=== PATIENT | female | born 1960 | race Caucasian/White ===

== ENCOUNTER 2025-04-24 16:12 | Inpatient (IN) ==
[2025-04-24 16:49] LABS: Base Excess VBG 14.4 mEq/L; HCO3 VBG 39 mmol/L; Oxygen Saturation VBG < 60.0 %; PCO2 VBG 44 mmHg (38-50); PO2 VBG 33 mmHg; pH VBG 7.55 (7.36-7.41)
--- NOTE | 2025-04-24 17:03 | Emergency Department Note ---
Impression & Plan Altered mental status, CKD (chronic kidney disease) ED Provider Note ED Provider Note NAME: RICCI ESCOBAR AGE:65 SEX: Female : 1960 ARRIVES VIA: EMS INFORMANT: EMS ED PROVIDER(s): Liset Marcos DO CHIEF COMPLAINT: Altered mental status HPI: This is a-year-old female who presents to the emergency with EMS after being found to be more confused following her dialysis treatment today. Patient is somnolent but arousable and denies any pain and cannot recall how long she is on dialysis but states she does still make urine. She denies any change in medication. EMS provider states that staff told them that she had an extra hour of dialysis today because she had missed a prior dialysis treatment. Staff reported that she seemed in her usual mental state when she arrived and they did not notice anything out of the ordinary. PAST MEDICAL HISTORY:See Below PAST SURGICAL HISTORY:See Below FAMILY HISTORY:See Below SOCIAL HISTORY:See Below HOME MEDICATIONS:See Below ALLERGIES:See Below VITALS:See Below PHYSICAL EXAMINATION: GENERAL: alert, well appearing, well nourished, no distress, non-toxic EYE EXAM: normal conjunctiva, PERRL and EOM's grossly intact OROPHARYNX: no exudate, no erythema, lips, buccal mucosa, and tongue normal and mucous membranes are moist NECK: supple, no nuchal rigidity, no adenopathy, non-tender LUNGS: Clear to auscultation. Normal chest wall mechanics, no w/r/r HEART: no murmurs, S1 normal and S2 normal ABDOMEN: abdomen soft, non-tender, normo-active bowel sounds, no masses, no rebound or guarding. BACK: Back is symmetrical on inspection and there is no deformity, no midline tenderness, no CVA tenderness. SKIN: no rashes, petechiae, orbruising UPPER EXTREMITIES: upper extremities are grossly normal. FROM, nml pulses b/l. LOWER EXTREMITIES: No pitting edema. FROM, nml pulses b/l. Chronic appearing erythema noted to bilateral lower extremities with more acute appearing areas intermittently of avulsed skin and increased surrounding erythema, no discharge or drainage, dressings were placed over bilateral anterior tib-fib regions NEURO EXAM: Normal sensorium, cranial nerves II-XII grossly intact, normal speech, no facial droop,nogross weakness of arms, no gross weakness of legs. Gross sensation intact. No ataxia. Vital Signs: reviewed and remarkable Differential Diagnosis: CVA/TIA, ICH, JARRETT, PNA, UTI, medication ADR, bacteremia/sepsis, occult trauma, hypoxia, hypercapnia, electrolyte abnormality, as well as others were considered MEDICAL DECISION MAKING: This is a 65-year-old female who presents via EMS for she was noted to be somnolent and slightly confused following her dialysis treatment.. She does arouse to voice and follow commands and answer simple questions however very quickly goes back to sleep. Labs drawn and sent, IV established, EKG and CXR performed and interpreted at bedside, and patient placed on telemetry. She was sent for CT head additionally. Labs appear stable in light of patient's past medical history. VBG reassuring, ammonia negative. CT head without any acute findings. Patient continued to be somnolent however hemodynamically stable throughout. She was still arouse to voice. Patient could not recall her 's phone number. There is no additional information in our system to find a next of kin or family members to discuss the patient's past medical history and presentation here. Given concern for presenting symptoms and no safe discharge plan otherwise, case discussed with the hospitalist team for additional evaluation and management. Consultation(s): 1924: Discussed with Dr. Connolly, [facility] hospitalist team, for additional evaluation and mgmt. ER Treatment Provided: See below Diagnostics Interpreted By Me: -ECG: Normal sinus at 65, first-degree AV block, leftward axis QRS 134, QTc 538, nonspecific ST/T wave changes -Cardiac Monitoring: An order was placed for continuous cardiac monitoring. The monitor shows a rate of 67 with normal sinus rhythm. -Laboratory studies: As stated above and show below. -Imaging studies: ct head: no ich X-ray Chest: A single view study of the chest was reviewed and was negative for focal infiltrate, effusion, or wide mediastinum. Cm and mild pulm edema noted. Triage Nursing Note Reviewed Prior/Outside Records Reviewed Past Med/Surg History Problem List (Updated 04/24/25 @ 19:07 by Liset Marcos DO) CKD (chronic kidney disease) (Acute) Altered mental status (Acute) Social History Smoking Status: Unknown if ever smoked Preferred Language: Pakistani Feels Safe at Home: Yes Allergies Allergies Allergy/AdvReac Type Severity Reaction Status Date / Time atorvastatin [From Lipitor] Allergy Unknown Verified 04/24/25 19:33 cephalexin [From Keflex] Allergy itchy/vomit Verified 04/24/25 19:33 ing Sulfa (Sulfonamide Allergy Unknown Verified 04/24/25 19:33 Antibiotics) Home Meds Home Medications Medication Instructions Recorded Confirmed aspirin 81 mg tablet,delayed 81 mg PO QAM 04/24/25 04/24/25 release cholecalciferol (vitamin D3) 25 25 mcg PO DAILY 04/24/25 04/24/25 mcg (1,000 unit) tablet (Vitamin D3) ferric citrate 210 mg iron tablet 1 tab PO TIDM 04/24/25 04/24/25 (Auryxia) gabapentin 300 mg capsule 300 mg PO QPM 04/24/25 04/24/25 insulin glargine 100 unit/mL (3 10 unit subcut HS 04/24/25 04/24/25 mL) subcutaneous pen (Lantus Solostar U-100 Insulin) lorazepam 0.5 mg tablet 0.25 mg PO BID PRN Anxiety 04/24/25 04/24/25 mesalamine 800 mg tablet,delayed 800 mg PO TID 04/24/25 04/24/25 release midodrine 10 mg tablet 20 mg PO UD 04/24/25 04/24/25 nitrofurantoin 100 mg PO BID 04/24/25 04/24/25 monohydrate/macrocrystals 100 mg capsule omeprazole 20 mg capsule,delayed 20 mg PO QAM 04/24/25 04/24/25 release ranolazine 500 mg tablet,extended 500 mg PO BID 04/24/25 04/24/25 release,12 hr rifaximin 550 mg tablet (Xifaxan) 550 mg PO BID 04/24/25 04/24/25 ropinirole 3 mg tablet 3 mg PO BID 04/24/25 04/24/25 sacubitril 24 mg-valsartan 26 mg 1 tab PO AMHS 04/24/25 04/24/25 tablet (Entresto) sertraline 100 mg tablet 100 mg PO HS 04/24/25 04/24/25 simvastatin 20 mg tablet 20 mg PO HS 04/24/25 04/24/25 vitamin B complex-vitamin C-folic 1 tab PO DAILY 04/24/25 04/24/25 acid 0.8 mg tablet Results & Data (ED) Vital Signs Vital Signs - 24 hr 04/24/25 16:30 04/24/25 16:30 04/24/25 16:30 Temperature 36.9 C 36.9 C Temperature Source Oral Oral Pulse Rate 63 63 Pulse Rate [Apical] 63 Pulse Rate from SpO2 Sensor Respiratory Rate 22 22 22 Blood Pressure 144/59 H Blood Pressure [Right Arm] 144/59 H Blood Pressure Mean 87 Blood Pressure Mean [Right Arm] 87 Blood Pressure Position Semi-fowlers Blood Pressure Position [Right Arm] Semi-fowlers Pulse Oximetry 97 97 97 Oxygen Delivery Method Room Air Room Air Room Air Oxygen Flow Rate Sepsis Recent Fever Within 48 Hours No Sepsis New/Unexplained Change in Mental Status Yes Sepsis Action Taken by Nursing Physician Notified 04/24/25 16:30 04/24/25 16:45 04/24/25 16:50 Temperature Temperature Source Pulse Rate 63 Pulse Rate [Apical] Pulse Rate from SpO2 Sensor Respiratory Rate Blood Pressure 144/59 H Blood Pressure [Right Arm] Blood Pressure Mean 77 Blood Pressure Mean [Right Arm] Blood Pressure Position Blood Pressure Position [Right Arm] Pulse Oximetry 97 Oxygen Delivery Method Room Air Oxygen Flow Rate 0 Sepsis Recent Fever Within 48 Hours Sepsis New/Unexplained Change in Mental Status Sepsis Action Taken by Nursing 04/24/25 17:12 04/24/25 17:30 04/24/25 17:30 Temperature Temperature Source Pulse Rate 69 65 Pulse Rate [Apical] Pulse Rate from SpO2 Sensor Respiratory Rate 22 17 Blood Pressure 148/67 H Blood Pressure [Right Arm] Blood Pressure Mean 106 Blood Pressure Mean [Right Arm] Blood Pressure Position Blood Pressure Position [Right Arm] Pulse Oximetry Oxygen Delivery Method Oxygen Flow Rate Sepsis Recent Fever Within 48 Hours Sepsis New/Unexplained Change in Mental Status Sepsis Action Taken by Nursing 04/24/25 17:45 04/24/25 17:51 04/24/25 18:00 Temperature Temperature Source Pulse Rate 66 Pulse Rate [Apical] 67 67 Pulse Rate from SpO2 Sensor Respiratory Rate 18 16 16 Blood Pressure Blood Pressure [Right Arm] 153/69 H 153/69 H Blood Pressure Mean Blood Pressure Mean [Right Arm] 97 97 Blood Pressure Position Blood Pressure Position [Right Arm] Semi-fowlers Semi-fowlers Pulse Oximetry 95 95 Oxygen Delivery Method Room Air Room Air Oxygen Flow Rate Sepsis Recent Fever Within 48 Hours Sepsis New/Unexplained Change in Mental Status Sepsis Action Taken by Nursing 04/24/25 18:00 04/24/25 18:00 04/24/25 18:03 Temperature Temperature Source Pulse Rate 67 Pulse Rate [Apical] Pulse Rate from SpO2 Sensor 67 Respiratory Rate 18 Blood Pressure 153/69 H 153/69 H Blood Pressure [Right Arm] Blood Pressure Mean 103 103 Blood Pressure Mean [Right Arm] Blood Pressure Position Blood Pressure Position [Right Arm] Pulse Oximetry 99 Oxygen Delivery Method Oxygen Flow Rate Sepsis Recent Fever Within 48 Hours Sepsis New/Unexplained Change in Mental Status Sepsis Action Taken by Nursing 04/24/25 18:06 04/24/25 18:15 04/24/25 18:16 Temperature Temperature Source Pulse Rate 66 Pulse Rate [Apical] 69 Pulse Rate from SpO2 Sensor 67 Respiratory Rate 15 16 Blood Pressure 162/72 H Blood Pressure [Right Arm] 162/72 H Blood Pressure Mean 108 Blood Pressure Mean [Right Arm] 102 Blood Pressure Position Blood Pressure Position [Right Arm] Semi-fowlers Pulse Oximetry 100 95 Oxygen Delivery Method Room Air Oxygen Flow Rate Sepsis Recent Fever Within 48 Hours Sepsis New/Unexplained Change in Mental Status Sepsis Action Taken by Nursing 04/24/25 18:18 04/24/25 18:45 04/24/25 18:46 Temperature Temperature Source Pulse Rate 69 Pulse Rate [Apical] 64 Pulse Rate from SpO2 Sensor Respiratory Rate 15 20 Blood Pressure 169/68 H Blood Pressure [Right Arm] 185/80 H Blood Pressure Mean 81 Blood Pressure Mean [Right Arm] 115 Blood Pressure Position Blood Pressure Position [Right Arm] Semi-fowlers Pulse Oximetry 95 Oxygen Delivery Method Room Air Oxygen Flow Rate Sepsis Recent Fever Within 48 Hours Sepsis New/Unexplained Change in Mental Status Sepsis Action Taken by Nursing 04/24/25 18:50 04/24/25 19:06 04/24/25 19:09 Temperature Temperature Source Pulse Rate 64 63 Pulse Rate [Apical] Pulse Rate from SpO2 Sensor Respiratory Rate 18 14 Blood Pressure 185/80 H Blood Pressure [Right Arm] Blood Pressure Mean 93 Blood Pressure Mean [Right Arm] Blood Pressure Position Blood Pressure Position [Right Arm] Pulse Oximetry Oxygen Delivery Method Oxygen Flow Rate Sepsis Recent Fever Within 48 Hours Sepsis New/Unexplained Change in Mental Status Sepsis Action Taken by Nursing 04/24/25 19:15 04/24/25 19:21 04/24/25 19:30 Temperature Temperature Source Pulse Rate 65 Pulse Rate [Apical] Pulse Rate from SpO2 Sensor Respiratory Rate 16 Blood Pressure 154/67 H 139/65 Blood Pressure [Right Arm] Blood Pressure Mean 101 123 Blood Pressure Mean [Right Arm] Blood Pressure Position Blood Pressure Position [Right Arm] Pulse Oximetry Oxygen Delivery Method Oxygen Flow Rate Sepsis Recent Fever Within 48 Hours Sepsis New/Unexplained Change in Mental Status Sepsis Action Taken by Nursing 04/24/25 19:30 04/24/25 19:30 04/24/25 19:30 Temperature Temperature Source Pulse Rate 67 Pulse Rate [Apical] Pulse Rate from SpO2 Sensor Respiratory Rate 17 Blood Pressure 139/65 139/65 Blood Pressure [Right Arm] Blood Pressure Mean 123 123 Blood Pressure Mean [Right Arm] Blood Pressure Position Blood Pressure Position [Right Arm] Pulse Oximetry Oxygen Delivery Method Oxygen Flow Rate Sepsis Recent Fever Within 48 Hours Sepsis New/Unexplained Change in Mental Status Sepsis Action Taken by Nursing 04/24/25 19:33 04/24/25 19:45 04/24/25 19:45 Temperature Temperature Source Pulse Rate 67 Pulse Rate [Apical] Pulse Rate from SpO2 Sensor Respiratory Rate 22 Blood Pressure 144/69 H 144/69 H Blood Pressure [Right Arm] Blood Pressure Mean 104 104 Blood Pressure Mean [Right Arm] Blood Pressure Position Blood Pressure Position [Right Arm] Pulse Oximetry Oxygen Delivery Method Oxygen Flow Rate Sepsis Recent Fever Within 48 Hours Sepsis New/Unexplained Change in Mental Status Sepsis Action Taken by Nursing 04/24/25 19:45 04/24/25 19:48 04/24/25 19:48 Temperature Temperature Source Pulse Rate 66 Pulse Rate [Apical] 66 Pulse Rate from SpO2 Sensor Respiratory Rate 16 Blood Pressure 144/69 H Blood Pressure [Right Arm] 144/69 H Blood Pressure Mean 104 Blood Pressure Mean [Right Arm] 94 Blood Pressure Position Blood Pressure Position [Right Arm] Pulse Oximetry Oxygen Delivery Method Oxygen Flow Rate Sepsis Recent Fever Within 48 Hours Sepsis New/Unexplained Change in Mental Status Sepsis Action Taken by Nursing 04/24/25 20:00 04/24/25 20:06 04/24/25 20:15 Temperature Temperature Source Pulse Rate 66 63 Pulse Rate [Apical] Pulse Rate from SpO2 Sensor Respiratory Rate 16 14 Blood Pressure 150/68 H Blood Pressure [Right Arm] Blood Pressure Mean 119 Blood Pressure Mean [Right Arm] Blood Pressure Position Blood Pressure Position [Right Arm] Pulse Oximetry Oxygen Delivery Method Oxygen Flow Rate Sepsis Recent Fever Within 48 Hours Sepsis New/Unexplained Change in Mental Status Sepsis Action Taken by Nursing 04/24/25 20:15 04/24/25 20:15 Temperature Temperature Source Pulse Rate Pulse Rate [Apical] Pulse Rate from SpO2 Sensor Respiratory Rate Blood Pressure 131/60 131/60 Blood Pressure [Right Arm] Blood Pressure Mean 97 97 Blood Pressure Mean [Right Arm] Blood Pressure Position Blood Pressure Position [Right Arm] Pulse Oximetry Oxygen Delivery Method Oxygen Flow Rate Sepsis Recent Fever Within 48 Hours Sepsis New/Unexplained Change in Mental Status Sepsis Action Taken by Nursing Laboratory Data 04/24/25 16:30 04/24/25 16:30 Lab Results 04/24/25 04/24/25 04/24/25 Range/Units 16:30 16:40 18:17 WBC 3.10 L (4.8-10.8) K/ul RBC 3.92 L (4.20-5.40) M/uL Hgb 12.1 (12.0-16.0) g/dl POC Hgb 13.3 (12.0-16.0) g/dl Hct 38.0 (37.0-47.0) % POC Hct 39 (37-47) % MCV 96.9 (80.0-100.0) fL MCH 30.9 (25.0-34.0) pg MCHC 31.8 L (32.0-36.0) g/dL RDW Std Deviation 55.3 H (36.4-46.3) fL RDW Coeff of Danette 15.5 H (11.5-14.5) % Plt Count 89 L (130-400) K/uL MPV 10.9 (9.4-12.4) fL Immature Gran % (Auto) 0.6 % Neut % (Auto) 60.3 % Lymph % (Auto) 24.5 % [place] % (Auto) 12.3 % Eos % (Auto) 1.3 % Baso % (Auto) 1.0 % Neut # (Auto) 1.87 (1.40-6.50) K/uL Lymph # (Auto) 0.76 L (1.20-3.40) K/uL [place] # (Auto) 0.38 (0.11-0.59) K/uL Eos # (Auto) 0.04 (0.00-0.50) K/uL Baso # (Auto) 0.03 (0.00-0.20) K/uL Immature Gran # (Auto) 0.02 (0.01-0.20) K/uL Platelet Estimate Decreased L (Normal) PT 11.4 (9.0-12.0) Seconds INR 1.1 (0.9-1.1) VBG pH 7.55 H (7.36-7.41) VBG pCO2 44 (38-50) mmHg VBG pO2 33 mmHg VBG HCO3 39 mmol/L VBG O2 Saturation < 60.0 % VBG Base Excess 14.4 mEq/L POC Sodium 139 (135-144) mmol/L Sodium 138 (136-145) mmol/L POC Potassium 3.7 (3.3-5.0) mmol/L Potassium 3.7 (3.5-5.1) mmol/L POC Chloride 96 L (101-112) mmol/L Chloride 96 L (98-107) mmol/L Carbon Dioxide 35 H (21-32) mmol/L POC Total CO2 32 H (24-31) mmol/L Anion Gap 7 (3-11) POC Anion Gap 15.0 L (16-25) mmol/L POC BUN 15 (7-18) mg/dl BUN 16 (6-23) mg/dl Creatinine 2.47 H (0.6-1.2) mg/dl POC Creatinine 2.7 H (0.6-1.3) mg/dl Est Cr Clr Drug Dosing Not Reportable eGFR 21.12 BUN/Creatinine Ratio 6.5 L (10-20) Glucose 130 H (70-99(Fasting)) mg/dl POC Glucose (70-99) mg/dl POC Glucose (other) 131 H (70-99) mg/dl Lactate 2.1 H* (0.4-2.0) mmol/L Calcium 8.7 (8.6-10.3) mg/dl POC Ioniz Calcium Norberto 0.97 L (1.12-1.32) mmol/l Magnesium 1.9 (1.7-2.4) mg/dl Total Bilirubin 1.3 H (0.2-1.0) mg/dl Direct Bilirubin 0.2 (0-0.2) mg/dl AST 34 (13-39) U/L ALT 14 (7-52) U/L Alkaline Phosphatase 129 H (34-104) U/L Ammonia 59.0 (18-72) umol/L Troponin I High Sens 35.4 H (0-14) pg/ml Total Protein 7.7 (6.0-8.3) gm/dl Albumin 3.5 (3.4-5.0) gm/dl Procalcitonin 0.34 (0-0.5) ng/ml Adenovirus (PCR) Not Detected (NotDetected) B. pertussis DNA (PCR) Not Detected (NotDetected) B.parapertussis DNA PCR Not Detected (NotDetected) C. pneumoniae DNA (PCR) Not Detected (NotDetected) Coronavirus OC43 (PCR) Not Detected (NotDetected) Coronavirus HKU1 (PCR) Not Detected (NotDetected) Coronavirus 229E (PCR) Not Detected (NotDetected) SARS-CoV-2 (PCR) Not Detected (NotDetected) Coronavirus NL63 (PCR) Not Detected (NotDetected) Human Metapneumovir PCR Not Detected (NotDetected) Influenza Type A (PCR) Not Detected (NotDetected) Influenza Type B (PCR) Not Detected (NotDetected) M. pneumoniae (PCR) Not Detected (NotDetected) Parainfluenza 1 (PCR) Not Detected (NotDetected) Parainfluenza 2 (PCR) Not Detected (NotDetected) Parainfluenza 3 (PCR) Not Detected (NotDetected) Parainfluenza 4 (PCR) Not Detected (NotDetected) RSV (PCR) Not Detected (NotDetected) Entero/Rhino (PCR) Not Detected (NotDetected) 04/24/25 04/24/25 Range/Units 18:45 18:48 WBC (4.8-10.8) K/ul RBC (4.20-5.40) M/uL Hgb (12.0-16.0) g/dl POC Hgb (12.0-16.0) g/dl Hct (37.0-47.0) % POC Hct (37-47) % MCV (80.0-100.0) fL MCH (25.0-34.0) pg MCHC (32.0-36.0) g/dL RDW Std Deviation (36.4-46.3) fL RDW Coeff of Danette (11.5-14.5) % Plt Count (130-400) K/uL MPV (9.4-12.4) fL Immature Gran % (Auto) % Neut % (Auto) % Lymph % (Auto) % [place] % (Auto) % Eos % (Auto) % Baso % (Auto) % Neut # (Auto) (1.40-6.50) K/uL Lymph # (Auto) (1.20-3.40) K/uL [place] # (Auto) (0.11-0.59) K/uL Eos # (Auto) (0.00-0.50) K/uL Baso # (Auto) (0.00-0.20) K/uL Immature Gran # (Auto) (0.01-0.20) K/uL Platelet Estimate (Normal) PT (9.0-12.0) Seconds INR (0.9-1.1) VBG pH (7.36-7.41) VBG pCO2 (38-50) mmHg VBG pO2 mmHg VBG HCO3 mmol/L VBG O2 Saturation % VBG Base Excess mEq/L POC Sodium (135-144) mmol/L Sodium (136-145) mmol/L POC Potassium (3.3-5.0) mmol/L Potassium (3.5-5.1) mmol/L POC Chloride (101-112) mmol/L Chloride (98-107) mmol/L Carbon Dioxide (21-32) mmol/L POC Total CO2 (24-31) mmol/L Anion Gap (3-11) POC Anion Gap (16-25) mmol/L POC BUN (7-18) mg/dl BUN (6-23) mg/dl Creatinine (0.6-1.2) mg/dl POC Creatinine (0.6-1.3) mg/dl Est Cr Clr Drug Dosing eGFR BUN/Creatinine Ratio (10-20) Glucose (70-99(Fasting)) mg/dl POC Glucose 136 H (70-99) mg/dl POC Glucose (other) (70-99) mg/dl Lactate 1.8 (0.4-2.0) mmol/L Calcium (8.6-10.3) mg/dl POC Ioniz Calcium Norberto (1.12-1.32) mmol/l Magnesium (1.7-2.4) mg/dl Total Bilirubin (0.2-1.0) mg/dl Direct Bilirubin (0-0.2) mg/dl AST (13-39) U/L ALT (7-52) U/L Alkaline Phosphatase (34-104) U/L Ammonia (18-72) umol/L Troponin I High Sens 31.9 H (0-14) pg/ml Total Protein (6.0-8.3) gm/dl Albumin (3.4-5.0) gm/dl Procalcitonin (0-0.5) ng/ml Adenovirus (PCR) (NotDetected) B. pertussis DNA (PCR) (NotDetected) B.parapertussis DNA PCR (NotDetected) C. pneumoniae DNA (PCR) (NotDetected) Coronavirus OC43 (PCR) (NotDetected) Coronavirus HKU1 (PCR) (NotDetected) Coronavirus 229E (PCR) (NotDetected) SARS-CoV-2 (PCR) (NotDetected) Coronavirus NL63 (PCR) (NotDetected) Human Metapneumovir PCR (NotDetected) Influenza Type A (PCR) (NotDetected) Influenza Type B (PCR) (NotDetected) M. pneumoniae (PCR) (NotDetected) Parainfluenza 1 (PCR) (NotDetected) Parainfluenza 2 (PCR) (NotDetected) Parainfluenza 3 (PCR) (NotDetected) Parainfluenza 4 (PCR) (NotDetected) RSV (PCR) (NotDetected) Entero/Rhino (PCR) (NotDetected) Administered Medications Insulin Aspart (Insulin Aspart Per Unit Charge) 0 units SC ACHS SWATI Stop: 05/24/25 22:01 Last Admin: 04/24/25 22:30 Dose: Not Given Documented By: BJS Discontinued Medications Hydralazine HCl (Hydralazine Hcl 20 Mg/Ml Vial) 5 mg IV NOW ONE Stop: 04/24/25 19:32 Last Admin: 04/24/25 19:47 Dose: Not Given Documented By: Ceftriaxone Sodium (Rocephin) 2,000 mg in 50 mls @ 100 mls/hr IV NOW STA Stop: 04/24/25 19:35 Last Admin: 04/24/25 19:47 Dose: Not Given Documented By: Doxycycline Hyclate 100 mg/ (Dextrose) 100 mls @ 50 mls/hr IV NOW STA Stop: 04/24/25 21:36 Last Infusion: 04/24/25 22:01 Dose: Infused Documented By: Admin: 04/24/25 20:01 Dose: 50 mls/hr Documented By: Imaging Data Radiologist's Impression: Chest X-Ray 04/24/25 16:22 Clinical History: Sepsis Technique: A frontal view of the chest was obtained Findings: There is diffuse interstitial prominence, concerning for mild pulmonary edema. The heart is mildly enlarged. No pleural effusion or pneumothorax is seen. No fracture is noted. No foreign body is seen Impression: Cardiomegaly and pulmonary edema Electronically signed by Paul Javier 04-24-2025 7:[address] 04/24/25 17:33 CT head without contrast History: AMS Comparison: None Technique: Using multidetector thin collimation helical acquisition technique, axial, coronal and sagittal CT images from the skull base to the vertex were obtained without intravenous contrast. Dose reduction techniques were achieved by using automatic exposure control and/or adjustment of mA and/or kV according to patient size and/or use of iterative reconstruction technique. Findings: No intracranial hemorrhage, mass-effect, or midline shift. The ventricles are proportionate to the cerebral sulci. The delgado to white matter differentiation of the cerebral hemispheres is preserved. The basal cisterns are patent. There are mild microvascular ischemic changes. The visualized paranasal sinuses are clear. Mastoid air cells are clear. Impression: No acute intracranial pathology. Electronically signed by Akin Ornelas 04-24-2025 6:36 PM Discharge Plan Visit Data Chief Complaint: Altered Mental Status Stated Complaint: AMS ED Provider: Liset Marcos Discharge Problem: Altered mental status, CKD (chronic kidney disease) Patient Disposition: Being Evaluated by Hospitalist Condition: Fair
[2025-04-24 17:15] LABS: Alanine Aminotransferase 14 U/L (7-52); Albumin Level 3.5 gm/dl (3.4-5.0); Alkaline Phosphatase 129 U/L (34-104); Anion Gap 7 (3-11); Bilirubin,Total 1.3 mg/dl (0.2-1.0); Blood Urea Nitrogen 16 mg/dl (6-23); Calcium 8.7 mg/dl (8.6-10.3); Carbon Dioxide 35 mmol/L (21-32); Chloride 96 mmol/L (98-107); Glucose 130 mg/dl (70-99(Fasting)); Magnesium 1.9 mg/dl (1.7-2.4); Potassium 3.7 mmol/L (3.5-5.1); Sodium 138 mmol/L (136-145); Total Protein 7.7 gm/dl (6.0-8.3)
[2025-04-24 17:25] LABS: Hematocrit (blood only) 38.0 % (37.0-47.0); Hemoglobin 12.1 g/dl (12.0-16.0); Immature Granulocytes # (auto) 0.02 K/uL (0.01-0.20); Immature Granulocytes % (auto) 0.6 %; Mean Corpuscular Hemoglobin 30.9 pg (25.0-34.0); Mean Corpuscular Volume 96.9 fL (80.0-100.0); Platelet Count 89 K/uL (130-400); RDW Standard Deviation 55.3 fL (36.4-46.3); Red Blood Count 3.92 M/uL (4.20-5.40); White Blood Count 3.10 K/ul (4.8-10.8)
[2025-04-24 17:47] LABS: INR 1.1 (0.9-1.1); Prothrombin Time 11.4 Seconds (9.0-12.0)
--- NOTE | 2025-04-24 18:37 | CT Scan Report ---
CT head without contrast History: AMS Comparison: None Technique: Using multidetector thin collimation helical acquisition technique, axial, coronal and sagittal CT images from the skull base to the vertex were obtained without intravenous contrast. Dose reduction techniques were achieved by using automatic exposure control and/or adjustment of mA and/or kV according to patient size and/or use of iterative reconstruction technique. Findings: No intracranial hemorrhage, mass-effect, or midline shift. The ventricles are proportionate to the cerebral sulci. The delgado to white matter differentiation of the cerebral hemispheres is preserved. The basal cisterns are patent. There are mild microvascular ischemic changes. The visualized paranasal sinuses are clear. Mastoid air cells are clear. Impression: No acute intracranial pathology. Electronically signed by Akin Ornelas 04-24-2025 6:36 PM
[2025-04-24 19:34] LABS: Chlamydia pneumoniae PCR Not Detected (NotDetected); Coronavirus 229E PCR Not Detected (NotDetected); Coronavirus CoV-2 (COVID19)PCR Not Detected (NotDetected); Coronavirus HKU1 PCR Not Detected (NotDetected); Coronavirus NL63 PCR Not Detected (NotDetected); Coronavirus OC43PCR Not Detected (NotDetected); Human Metapneumovirus PCR Not Detected (NotDetected); Parainfluenza Virus 1 PCR Not Detected (NotDetected); Parainfluenza Virus 2 PCR Not Detected (NotDetected); Parainfluenza Virus 3 PCR Not Detected (NotDetected); Parainfluenza Virus 4 PCR Not Detected (NotDetected); Respiratory Syncytial VirusPCR Not Detected (NotDetected); Rhinovirus/Enterovirus PCR Not Detected (NotDetected)
[2025-04-24] MEDS: cefTRIAXone SODIUM 2,000 MG/50 ML BAG IV STA (19:47)
--- NOTE | 2025-04-24 19:48 | XRay Report ---
Clinical History: Sepsis Technique: A frontal view of the chest was obtained Findings: There is diffuse interstitial prominence, concerning for mild pulmonary edema. The heart is mildly enlarged. No pleural effusion or pneumothorax is seen. No fracture is noted. No foreign body is seen Impression: Cardiomegaly and pulmonary edema Electronically signed by Paul Javier 04-24-2025 7:48 PM
[2025-04-24] MEDS: DOXYCYCLINE HYCLATE 100 MG in DEXTROSE 5% MINI-B 100 ML IV STA (20:01)
--- NOTE | 2025-04-24 20:16 | History & Physical Report ---
Date of Service April 24, 2025 Assessment & Plan (1) Encephalopathy: Plan: Assessment and plan below following discussion of case with ED provider and reviewing patient history/pertinent normal/abnormal diagnostic test results. Encephalopathy Rule out UTI Home neuropsychotropic medications possibly contributory Bilateral LE cellulitis, underlying LE venous stasis, no sepsis for now, rule out DVT hx CHF, pulmonary congestion in the setting of ESRD on HD, patient without SOB complaints hx CAD status post stent hypertension, stable hypotension on midodrine hyperlipidemia, on statin Rx DM2 insulin requiring, well-controlled as of recent hemoglobin A1c of 6.3 last year hx NAFLD cirrhosis chronic anemia, hemoglobin at baseline chronic thrombocytopenia secondary to liver disease past tobacco use OBS Admit to med/tele Check UA Hold neuropsychotropic medications for now until patient mentation back to baseline Doxycycline for LE cellulitis LE venous Dopplers rule out DVT Nephrology consult if patient still confined after tomorrow for dialysis manag ement Review of records of recent confinement at [facility] ISS BG goal 110-140, carb count coverage PT OT eval once more awake DVT prophylaxis. SCDs Re: Thrombocytopenia Full code Patient requesting updates providers. Mr. Alan Hillman, contact #[phone]. Text document was generated using [employer] voice recognition software. It may contain grammatical or spelling errors. Kindly contact undersigned for clarification of any documentation item in question. History of Present Illness Chief Complaint: Altered mental status as per records I do not know as per patient Primary Care Provider: Sina Pena PA-C History obtained from patient, family, and records. Limited history from patient secondary to lethargy and confusion Medical history significant for CHF, CAD status post stent, hypertension, hypotension on midodrine, hyperlipidemia, ESRD on HD, DM2 insulin requiring, NAFLD cirrhosis, GERD, history of ischemic colitis as per records, chronic anemia (baseline hemoglobin of 11), chronic thrombocytopenia, mood disorder, past tobacco use. Recent confinement [facility] last week as per for liver and ammonia issues. Patient missed outpatient hemodialysis 2 days ago and was 10.9 kg overweight upon arrival [facility] dialysis center in [place] as per note. Patient noted to be confused and sleepy after 5-hour dialysis session. Patient denies headache, chest pain, SOB, abdominal pain, or dysuria symptoms. Chronic leg wounds a little worse than usual as per patient. Patient brought to ER for evaluation. Patient does not know where she is and why she is at the hospital. 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 Allergies Allergy/AdvReac Type Severity Reaction Status Date / Time atorvastatin [From Lipitor] Allergy Unknown Verified 04/24/25 19:33 cephalexin [From Keflex] Allergy itchy/vomit Verified 04/24/25 19:33 ing Sulfa (Sulfonamide Allergy Unknown Verified 04/24/25 19:33 Antibiotics) Home Medications Medication Instructions Recorded Confirmed Type aspirin 81 mg tablet,delayed 81 mg PO QAM 04/24/25 04/24/25 History release cholecalciferol (vitamin D3) 25 25 mcg PO DAILY 04/24/25 04/24/25 History mcg (1,000 unit) tablet (Vitamin D3) ferric citrate 210 mg iron tablet 1 tab PO TIDM 04/24/25 04/24/25 History (Auryxia) gabapentin 300 mg capsule 300 mg PO QPM 04/24/25 04/24/25 History insulin glargine 100 unit/mL (3 10 unit subcut HS 04/24/25 04/24/25 History mL) subcutaneous pen (Lantus Solostar U-100 Insulin) lorazepam 0.5 mg tablet 0.25 mg PO BID PRN Anxiety 04/24/25 04/24/25 History mesalamine 800 mg tablet,delayed 800 mg PO TID 04/24/25 04/24/25 History release midodrine 10 mg tablet 20 mg PO UD 04/24/25 04/24/25 History nitrofurantoin 100 mg PO BID 04/24/25 04/24/25 History monohydrate/macrocrystals 100 mg capsule omeprazole 20 mg capsule,delayed 20 mg PO QAM 04/24/25 04/24/25 History release ranolazine 500 mg tablet,extended 500 mg PO BID 04/24/25 04/24/25 History release,12 hr rifaximin 550 mg tablet (Xifaxan) 550 mg PO BID 04/24/25 04/24/25 History ropinirole 3 mg tablet 3 mg PO BID 04/24/25 04/24/25 History sacubitril 24 mg-valsartan 26 mg 1 tab PO AMHS 04/24/25 04/24/25 History tablet (Entresto) sertraline 100 mg tablet 100 mg PO HS 04/24/25 04/24/25 History simvastatin 20 mg tablet 20 mg PO HS 04/24/25 04/24/25 History vitamin B complex-vitamin C-folic 1 tab PO DAILY 04/24/25 04/24/25 History acid 0.8 mg tablet Past Med/Surg History Problem List (Updated 04/25/25 @ 05:49 by Patricio Alcantara MD) Encephalopathy CKD (chronic kidney disease) (Acute) Altered mental status (Acute) Social History Smoking Status: Current every day smoker Tobacco Type: Cigarettes Cigarettes Per Day: 3-4; Second Hand Exposure: Yes; Do You Dip or Chew Tobacco: No; Tobacco Cessation Education Requested by Patient: No Hx Alcohol Use: No Hx Substance Use: No Preferred Language: Nigerien Communication Ability: Effective Furnace Erector Required: No Beliefs That Will Affect Care: None Current Living Situation: Spouse and Family Current Living Situation Comment: and son Other Information That Helps Us Care for You: No Feels Safe at Home: Yes Safety Concerns: Feels Safe At This Time Assistive Devices: Glasses, Hospital Bed and Walker Review of Systems Review of Systems: Could not be reliably obtained secondary to lethargy and disorientation Physical Exam Physical Exam: GENERAL: Lethargic, obese, no respiratory distress SKIN: Normal color, warm HEENT: Rafael Hernandez palpebral conjunctivae, no ptosis, dry buccal mucosa NECK : Supple, short neck, no tenderness CHEST : Decreased breath sounds, no tenderness HEART : RRR, no obvious murmurs ABDOMEN: Some distention, nontender EXTREMITIES : Bilateral LE venous stasis with ulcerated wounds and erythematous areas, palpable pulses, no other conspicuous deformities noted NEUROLOGIC : Lethargic, no facial asymmetry, gait and stance not assessed Results & Data Results & Data Vital Signs (Past 12 Hours) Vital Signs Temp Pulse Pulse Resp BP BP Pulse Ox 04/24/25 19:48 66 144/69 H 04/24/25 18:45 64 20 185/80 H 95 04/24/25 18:15 69 16 162/72 H 95 04/24/25 18:00 67 16 153/69 H 95 04/24/25 17:45 67 18 153/69 H 95 04/24/25 16:50 63 04/24/25 16:30 97 04/24/25 16:30 36.9 C 63 22 144/59 H 97 04/24/25 16:30 63 22 97 04/24/25 16:30 36.9 C 63 22 144/59 H 97 O2 Del Method O2 Flow Rate 04/24/25 19:48 04/24/25 18:45 Room Air 04/24/25 18:15 Room Air 04/24/25 18:00 Room Air 04/24/25 17:45 Room Air 04/24/25 16:50 04/24/25 16:30 Room Air 0 04/24/25 16:30 Room Air 04/24/25 16:30 Room Air 04/24/25 16:30 Room Air Laboratory Results Laboratory Results WBC 3.10 K/ul (4.8-10.8) L 04/24/25 16:30 RBC 3.92 M/uL (4.20-5.40) L 04/24/25 16:30 Hgb 12.1 g/dl (12.0-16.0) 04/24/25 16:30 POC Hgb 13.3 g/dl (12.0-16.0) 04/24/25 16:40 Hct 38.0 % (37.0-47.0) 04/24/25 16:30 POC Hct 39 % (37-47) 04/24/25 16:40 MCV 96.9 fL (80.0-100.0) 04/24/25 16:30 MCH 30.9 pg (25.0-34.0) 04/24/25 16:30 MCHC 31.8 g/dL (32.0-36.0) L 04/24/25 16:30 RDW Std Deviation 55.3 fL (36.4-46.3) H 04/24/25 16:30 RDW Coeff of Danette 15.5 % (11.5-14.5) H 04/24/25 16:30 Plt Count 89 K/uL (130-400) L 04/24/25 16:30 MPV 10.9 fL (9.4-12.4) 04/24/25 16:30 Immature Gran % (Auto) 0.6 % 04/24/25 16:30 Neut % (Auto) 60.3 % 04/24/25 16:30 Lymph % (Auto) 24.5 % 04/24/25 16:30 Kimball % (Auto) 12.3 % 04/24/25 16:30 Eos % (Auto) 1.3 % 04/24/25 16:30 Baso % (Auto) 1.0 % 04/24/25 16:30 Neut # (Auto) 1.87 K/uL (1.40-6.50) 04/24/25 16:30 Lymph # (Auto) 0.76 K/uL (1.20-3.40) L 04/24/25 16:30 Kimball # (Auto) 0.38 K/uL (0.11-0.59) 04/24/25 16:30 Eos # (Auto) 0.04 K/uL (0.00-0.50) 04/24/25 16:30 Baso # (Auto) 0.03 K/uL (0.00-0.20) 04/24/25 16:30 Immature Gran # (Auto) 0.02 K/uL (0.01-0.20) 04/24/25 16:30 Platelet Estimate Decreased (Normal) L 04/24/25 16:30 PT 11.4 Seconds (9.0-12.0) 04/24/25 16:30 INR 1.1 (0.9-1.1) 04/24/25 16:30 VBG pH 7.55 (7.36-7.41) H 04/24/25 16:30 VBG pCO2 44 mmHg (38-50) 04/24/25 16:30 VBG pO2 33 mmHg 04/24/25 16:30 VBG HCO3 39 mmol/L 04/24/25 16:30 VBG O2 Saturation < 60.0 % 04/24/25 16:30 VBG Base Excess 14.4 mEq/L 04/24/25 16:30 POC Sodium 139 mmol/L (135-144) 04/24/25 16:40 Sodium 138 mmol/L (136-145) 04/24/25 16:30 POC Potassium 3.7 mmol/L (3.3-5.0) 04/24/25 16:40 Potassium 3.7 mmol/L (3.5-5.1) 04/24/25 16:30 POC Chloride 96 mmol/L (101-112) L 04/24/25 16:40 Chloride 96 mmol/L (98-107) L 04/24/25 16:30 Carbon Dioxide 35 mmol/L (21-32) H 04/24/25 16:30 POC Total CO2 32 mmol/L (24-31) H 04/24/25 16:40 Anion Gap 7 (3-11) 04/24/25 16:30 POC Anion Gap 15.0 mmol/L (16-25) L 04/24/25 16:40 POC BUN 15 mg/dl (7-18) 04/24/25 16:40 BUN 16 mg/dl (6-23) 04/24/25 16:30 Creatinine 2.47 mg/dl (0.6-1.2) H 04/24/25 16:30 POC Creatinine 2.7 mg/dl (0.6-1.3) H 04/24/25 16:40 Est Cr Clr Drug Dosing Not Reportable 04/24/25 16:30 eGFR 21.12 04/24/25 16:30 BUN/Creatinine Ratio 6.5 (10-20) L 04/24/25 16:30 Glucose 130 mg/dl (70-99(Fasting)) H 04/24/25 16:30 POC Glucose 136 mg/dl (70-99) H 04/24/25 18:45 POC Glucose (other) 131 mg/dl (70-99) H 04/24/25 16:40 Lactate 1.8 mmol/L (0.4-2.0) 04/24/25 18:48 Calcium 8.7 mg/dl (8.6-10.3) 04/24/25 16:30 POC Ioniz Calcium Norberto 0.97 mmol/l (1.12-1.32) L 04/24/25 16:40 Magnesium 1.9 mg/dl (1.7-2.4) 04/24/25 16:30 Total Bilirubin 1.3 mg/dl (0.2-1.0) H 04/24/25 16:30 Direct Bilirubin 0.2 mg/dl (0-0.2) 04/24/25 16:30 AST 34 U/L (13-39) 04/24/25 16:30 ALT 14 U/L (7-52) 04/24/25 16:30 Alkaline Phosphatase 129 U/L (34-104) H 04/24/25 16:30 Ammonia 59.0 umol/L (18-72) 04/24/25 16:30 Troponin I High Sens 31.9 pg/ml (0-14) H 04/24/25 18:48 Total Protein 7.7 gm/dl (6.0-8.3) 04/24/25 16:30 Albumin 3.5 gm/dl (3.4-5.0) 04/24/25 16:30 Procalcitonin 0.34 ng/ml (0-0.5) 04/24/25 16:30 Adenovirus (PCR) Not Detected (NotDetected) 04/24/25 18:17 B. pertussis DNA (PCR) Not Detected (NotDetected) 04/24/25 18:17 B.parapertussis DNA PCR Not Detected (NotDetected) 04/24/25 18:17 C. pneumoniae DNA (PCR) Not Detected (NotDetected) 04/24/25 18:17 Coronavirus OC43 (PCR) Not Detected (NotDetected) 04/24/25 18:17 Coronavirus HKU1 (PCR) Not Detected (NotDetected) 04/24/25 18:17 Coronavirus 229E (PCR) Not Detected (NotDetected) 04/24/25 18:17 SARS-CoV-2 (PCR) Not Detected (NotDetected) 04/24/25 18:17 Coronavirus NL63 (PCR) Not Detected (NotDetected) 04/24/25 18:17 Human Metapneumovir PCR Not Detected (NotDetected) 04/24/25 18:17 Influenza Type A (PCR) Not Detected (NotDetected) 04/24/25 18:17 Influenza Type B (PCR) Not Detected (NotDetected) 04/24/25 18:17 M. pneumoniae (PCR) Not Detected (NotDetected) 04/24/25 18:17 Parainfluenza 1 (PCR) Not Detected (NotDetected) 04/24/25 18:17 Parainfluenza 2 (PCR) Not Detected (NotDetected) 04/24/25 18:17 Parainfluenza 3 (PCR) Not Detected (NotDetected) 04/24/25 18:17 Parainfluenza 4 (PCR) Not Detected (NotDetected) 04/24/25 18:17 RSV (PCR) Not Detected (NotDetected) 04/24/25 18:17 Entero/Rhino (PCR) Not Detected (NotDetected) 04/24/25 18:17 Impressions Chest X-Ray 04/24/25 16:22 Clinical History: Sepsis Technique: A frontal view of the chest was obtained Findings: There is diffuse interstitial prominence, concerning for mild pulmonary edema. The heart is mildly enlarged. No pleural effusion or pneumothorax is seen. No fracture is noted. No foreign body is seen Impression: Cardiomegaly and pulmonary edema Electronically signed by Paul Javier 04-24-2025 7:[address] 04/24/25 17:33 CT head without contrast History: AMS Comparison: None Technique: Using multidetector thin collimation helical acquisition technique, axial, coronal and sagittal CT images from the skull base to the vertex were obtained without intravenous contrast. Dose reduction techniques were achieved by using automatic exposure control and/or adjustment of mA and/or kV according to patient size and/or use of iterative reconstruction technique. Findings: No intracranial hemorrhage, mass-effect, or midline shift. The ventricles are proportionate to the cerebral sulci. The delgado to white matter differentiation of the cerebral hemispheres is preserved. The basal cisterns are patent. There are mild microvascular ischemic changes. The visualized paranasal sinuses are clear. Mastoid air cells are clear. Impression: No acute intracranial pathology. Electronically signed by Akin Ornelas 04-24-2025 6:36 PM Diagnostic Findings EKG as per my interpretation :Rate 65, NSR, LAD, LAFD, LVH, T wave abnormalities inferior leads
[2025-04-24] MEDS ORDERED: GLUCAGON FOR INJ 1 MG VIAL SQ PRN (22:02)
[2025-04-24] MEDS ORDERED: GLUCOSE 40% GEL 15 GM TUBE PO PRN (22:02)
[2025-04-24] MEDS ORDERED: GLUCOSE 10 TAB/TUBE PO PRN (22:02)
[2025-04-24] MEDS ORDERED: CARBOHYDRATES FOR HYPOGLYCEMIA PO PRN (22:02)
[2025-04-24] MEDS ORDERED: DEXTROSE 50% 50 ML SYRINGE IV PRN (22:02)
[2025-04-24] MEDS: INSULIN ASPART PER UNIT CHARGE SC SCH (22:30)
--- NOTE | 2025-04-25 04:24 | Ultrasound Report ---
EXAM: US venous doppler LE BI CLINICAL HISTORY: Leg swelling TECHNIQUE: Ultrasound examination of the bilateral lower extremity veins was performed in real time and with duplex imaging. One or more of the following were performed: spectral analysis, resistive index, waveform analysis, and pulsed Doppler. Limited examination due to patient body habitus and severe limb edema. COMPARISON: None. FINDINGS: Normal phasic, non-pulsatile, and spontaneous flow is noted in the bilateral GSV, common femoral, superficial femoral, popliteal, anterior tibial, posterior tibial, and peroneal veins. The visualized veins of both lower extremities demonstrate normal compressibility. No sonographic evidence of acute deep vein thrombosis (DVT) is detected in the visualized veins of both lower extremities. Compression and Augmentation: All evaluated veins compress fully with applied transducer pressure. Augmentation of venous flow is noted with distal compression. Additional Findings: No evidence of intraluminal thrombus. Limited visualization of the calf vessels bilaterally due to multiple wounds and bandages at the mid calf and distally. IMPRESSION: Limited examination due to patient body habitus and severe limb edema. Limited visualization of the calf vessels bilaterally due to multiple wounds and bandages at the mid calf and distally. No sonographic evidence of acute DVT is detected in the bilateral common femoral, superficial femoral, popliteal, posterior tibial, and peroneal veins at the time of examination. Disclaimer: DVT could be missed early in the disease when clot burden is minimal. For patients with moderate and high pretest probability of DVT and negative ultrasound, the [employer] [employer] clinical guidelines recommend testing with a D-dimer assay or repeat ultrasound in 5-7 days. If symptoms worsen, the Society of radiologists in ultrasound recommends repeating ultrasound even earlier. Electronically signed by Zuhair Malin 04-25-2025 04:24 AM
[2025-04-25 04:56] LABS: Appearance Urine Turbid (Clear); Bacteria Urine Automated 4+ (None Seen); Cast Urine Automated >20 /lpf (0-2); Glucose Urine UA Negative (Negative); RBC Urine Automated >20 /hpf (0-2); WBC Urine Automated >50 /hpf (0-5)
[2025-04-25] MEDS: PIPERACILLIN/TAZOBACTAM 4.5 GM/100 ML BAG IV SCH (06:23)
--- NOTE | 2025-04-25 06:32 | Communication Note ---
Date of Service: April 25, 2025 Made aware of abnormal UA results. UA WBC esterase +3 AP Complicated UTI No sepsis for now Change to full admission Follow urine CS, Constantin
[2025-04-25 07:44] LABS: Hematocrit (blood only) 32.0 % (37.0-47.0); Hemoglobin 10.5 g/dl (12.0-16.0); Immature Granulocytes # (auto) 0.01 K/uL (0.01-0.20); Immature Granulocytes % (auto) 0.4 %; Mean Corpuscular Hemoglobin 31.8 pg (25.0-34.0); Mean Corpuscular Volume 97.0 fL (80.0-100.0); Platelet Count 80 K/uL (130-400); RDW Standard Deviation 53.6 fL (36.4-46.3); Red Blood Count 3.30 M/uL (4.20-5.40); White Blood Count 2.83 K/ul (4.8-10.8)
[2025-04-25 08:33] LABS: Anion Gap 7.0 (3-11); Blood Urea Nitrogen 24.0 mg/dl (6-23); Calcium 8.3 mg/dl (8.6-10.3); Carbon Dioxide 33.0 mmol/L (21-32); Chloride 98.0 mmol/L (98-107); Creatinine Clr Calc Pharmacy 20.5 ml/min; Glucose 98.0 mg/dl (70-99(Fasting)); Potassium 4.0 mmol/L (3.5-5.1); Sodium 138.0 mmol/L (136-145)
--- NOTE | 2025-04-25 08:50 | Nephrology Consultation ---
Date of Consultation April 25, 2025 Assessment & Plan (1) ESRD (end stage renal disease) on dialysis: ESRD reportedly on MWF HD at [facility] w/ missed tx on Tuesday -2.5 hrs tx today to optimize volume status -plan longer/routine HD tomorrow -no heparin on HD -appreciate certified dialysis technician reaching out to [facility] to review pt midodrine usage, routine RX, tx hx (2) Volume overload: pulmonary Edema on chest x-ray, significant edema on lower extremities limiting examinations; suspect diastolic heart failure of unclear chronicity but would need more data -check BNP -low threshold for echocardiogram if results not included/available from outside facilities -continue Entresto -continue midodrine with hold parameters (3) Pancytopenia: noted. Labs from this morning are more reflective of her true state since labs yesterday were drawn shortly after dialysis before all the fluid compartments had re calibrated after treatment. Could be explained as low platelets with liver disease, low hemoglobin with ESRD, low WBC from bone marrow suppression/ chronic infection -monitor daily - caution with heparin on dialysis History of Present Illness Reason for Consultation: Missed Dialysis Requesting Physician: Dr Alcantara Attending Physician: Kevin Umana MD History of Present Illness 65 y/o F whom I'm asked to see for missed dialysis treatment was admitted yesterday evening For evaluation of encephalopathy concerning for UTI versus outpatient neuro psychotropic medications contributing. Past medical history includes coronary artery disease status post stent, heart failure, diabetes on insulin, NAFLD cirrhosis, labile hypertension w/ some dependence on midodrine, chronic BLE wounds, GERD, chronic thrombocytopenia, past tobacco use, h/o ischemic colitis. Also w/ ESRD on MWF HD via AVF at [facility] w/ Dr Gomes. Admitted to [facility] last week with hyperammonemia per report; but no information available on this admission; records have been requested. Details about her recent dialysis care are also sketchy, since pt has at least mild confusion and there is no one at bedside to corroborate her history. her OP dialysis unit is closed today. Per H&P (reporting d/w family member) pt's Last dialysis was yesterday after missing dialysis April 23; at 04/25 treatment she was reportedly 10.9 kg over target and ran for 5 hours but had altered mental status afterward and brought here for evaluation. Blood and urine cultures are pending. Multiple BL lower extremity wounds were noted on admission. she was started on doxycycline and Zosyn. Her blood pressures have been running in the 140s to 160s systolic. ROS is limited by pt MS > not clear how reliable she is; she denies current chest/ abdominal pain, no sob, no orthopnea, no cough, no n/v/d/constipation. + hunger. she tells me LE edema is better than baseline and has no pain. . Allergies Allergy/AdvReac Type Severity Reaction Status Date / Time atorvastatin [From Lipitor] Allergy Unknown Verified 04/24/25 19:33 cephalexin [From Keflex] Allergy itchy/vomit Verified 04/24/25 19:33 ing Sulfa (Sulfonamide Allergy Unknown Verified 04/24/25 19:33 Antibiotics) Home Medications Medication Instructions Recorded Confirmed Type aspirin 81 mg tablet,delayed 81 mg PO QAM 04/24/25 04/24/25 History release cholecalciferol (vitamin D3) 25 25 mcg PO DAILY 04/24/25 04/24/25 History mcg (1,000 unit) tablet (Vitamin D3) ferric citrate 210 mg iron tablet 1 tab PO TIDM 04/24/25 04/24/25 History (Auryxia) gabapentin 300 mg capsule 300 mg PO QPM 04/24/25 04/24/25 History insulin glargine 100 unit/mL (3 10 unit subcut HS 04/24/25 04/24/25 History mL) subcutaneous pen (Lantus Solostar U-100 Insulin) lorazepam 0.5 mg tablet 0.25 mg PO BID PRN Anxiety 04/24/25 04/24/25 History mesalamine 800 mg tablet,delayed 800 mg PO TID 04/24/25 04/24/25 History release midodrine 10 mg tablet 20 mg PO UD 04/24/25 04/24/25 History nitrofurantoin 100 mg PO BID 04/24/25 04/24/25 History monohydrate/macrocrystals 100 mg capsule omeprazole 20 mg capsule,delayed 20 mg PO QAM 04/24/25 04/24/25 History release ranolazine 500 mg tablet,extended 500 mg PO BID 04/24/25 04/24/25 History release,12 hr rifaximin 550 mg tablet (Xifaxan) 550 mg PO BID 04/24/25 04/24/25 History ropinirole 3 mg tablet 3 mg PO BID 04/24/25 04/24/25 History sacubitril 24 mg-valsartan 26 mg 1 tab PO AMHS 04/24/25 04/24/25 History tablet (Entresto) sertraline 100 mg tablet 100 mg PO HS 04/24/25 04/24/25 History simvastatin 20 mg tablet 20 mg PO HS 04/24/25 04/24/25 History vitamin B complex-vitamin C-folic 1 tab PO DAILY 04/24/25 04/24/25 History acid 0.8 mg tablet Patient History Social History Smoking Status: Current every day smoker Tobacco Type: Cigarettes Cigarettes Per Day: 3-4; Second Hand Exposure: Yes; Do You Dip or Chew Tobacco: No; Tobacco Cessation Education Requested by Patient: No Hx Alcohol Use: No Hx Substance Use: No Preferred Language: Bruneian Communication Ability: Effective Thread Drawer Required: No Beliefs That Will Affect Care: None Current Living Situation: Spouse and Family Current Living Situation Comment: and son Other Information That Helps Us Care for You: No Feels Safe at Home: Yes Safety Concerns: Feels Safe At This Time Assistive Devices: Glasses, Hospital Bed and Walker Review of Systems 2 Review of Systems: All systems reviewed & are unremarkable except as noted in HPI & below Physical Exam 2 Constitutional: well developed (restless, on RA), + obese, + altered mental status and cooperative; no acute distress Eyes: EOM intact bilaterally ENMT: Mouth: + dry oral mucous membranes Respiratory: normal respiratory effort Auscultation: + diminished lung sounds Cardiovascular: Rate/Rhythm: regular rhythm and + bradycardic Extremities: + edema and + AV fistula (LUE + t/b) Gastrointestinal (Abdomen): Inspection/Auscultation: normal bowel sounds P ercussion/Palpation: abdomen soft; abdomen nontender Musculoskeletal: Extremities: strength 5/5 throughout Skin: no rashes, warm and dry Neurologic: ribeiro, fluent speech, no tremor; oriented to self Results & Data Vital Signs (Past 12 Hours) Vital Signs Temp Pulse Pulse Resp BP BP Pulse Ox 04/25/25 02:17 36.4 C L 60 16 151/77 H 98 04/24/25 22:28 58 L 04/24/25 22:01 04/24/25 22:01 36.7 C 61 18 148/66 H 100 04/24/25 21:30 66 100 04/24/25 21:30 151/75 H 04/24/25 21:15 165/81 H 04/24/25 21:15 165/81 H 04/24/25 21:00 161/78 H 04/24/25 21:00 161/78 H 04/24/25 21:00 161/78 H O2 Del Method 04/25/25 02:17 Room Air 04/24/25 22:28 04/24/25 22:01 Room Air 04/24/25 22:01 Room Air 04/24/25 21:30 04/24/25 21:30 04/24/25 21:15 04/24/25 21:15 04/24/25 21:00 04/24/25 21:00 04/24/25 21:00 Laboratory Results 04/25/25 07:06 04/25/25 07:06 urinalysis: Turbid dark yellow urine specific gravity 41600+ protein in blood 3+ leukocyte esterase 50 white cells 20 red cells 6-10 epithelial cells and 4+ bacteria Diagnostic Findings CXR plm edema Bilateral lower extremity Dopplers with limited exam due to patient body habitus and severe lymphedema; no acute DVT detected on limited exam /[email or web address]
[2025-04-25 09:09] LABS: Hemoglobin A1C 6.1 % (4.5-5.6)
[2025-04-25] MEDS: VALSARTAN/SACUBITRIL 26/24MG TAB PO SCH (10:04)
[2025-04-25] MEDS: ASPIRIN 81 MG ECTAB PO SCH (10:04)
[2025-04-25] MEDS: MESALAMINE 800 MG TABCR PO SCH (10:06)
[2025-04-25] MEDS: DOXYCYCLINE HYCLATE 100 MG CAP PO SCH (10:07)
[2025-04-25] MEDS: RANOLAZINE 500 MG ER TAB PO SCH (10:07)
[2025-04-25] MEDS: NEPHROCAPS PO SCH (10:08)
[2025-04-25] MEDS ORDERED: SODIUM CHLORIDE 0.9% 1,000 ML IV PRN (10:39)
[2025-04-25] MEDS: MIDODRINE HCL 10 MG TAB PO SCH ×2 (12:46→14:37)
--- NOTE | 2025-04-25 14:08 | Hospitalist Progress Note ---
Date of Service April 25, 2025 Assessment & Plan (1) Encephalopathy: Plan: Assessment and plan below following discussion of case with ED provider and reviewing patient history/pertinent normal/abnormal diagnostic test results. Acute Metabolic Encephalopathy Likely secondary to UTI Home neuropsychotropic medications possibly contributory Could be due to Bilateral LE cellulitis, underlying LE venous stasis, no sepsis for now, rule out DVT Has been started on intravenous Zosyn and oral doxycycline to cover both UTI and cellulitis Blood and urine cultures are pending She has been feeling much better and seems to have resolved confusion Wound care consult H/O CHF, pulmonary congestion in the setting of ESRD on HD, patient without SOB complaints H/O CAD status post stent Denies any cardiac and respiratory symptoms End-stage renal disease on hemodialysis Appreciate nephrology input and recommendation DM2 insulin requiring, well-controlled as of recent hemoglobin A1c of 6.3 last year ISS BG goal 110-140, carb count coverage Hypertension, stable H/O hypotension on midodrine Hyperlipidemia, on statin Rx H/O NAFLD cirrhosis Chronic anemia, hemoglobin at baseline 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 SCDs Re: Thrombocytopenia Full code Patient requesting updates providers. Mr. Alan Hillman, contact #[phone]. Text document was generated using [employer] voice recognition software. It may contain grammatical or spelling errors. Kindly contact undersigned for clarification of any documentation item in question. Admission and Anticipated Discharge Date Admission Date: April 25, 2025 Subjective 04/25/2025 The patient was seen and examined in medical telemetry unit She was admitted with acute change in mental status and has been feeling much better since admission Does not have any more confusion and denies any other significant symptoms Review of Systems Review of Systems: All systems reviewed and are unremarkable except as noted below Physical Exam Physical Exam: Sitting at the edge of the bed without any acute distress Constitutional: well developed, well nourished, + ill appearing and + obese Eyes: PERRL, conjunctivae normal, anicteric sclerae ENMT: external ear and nose normal, oropharynx normal Neck: trachea midline, no thyromegaly Respiratory: no respiratory distress Auscultation: + diminished lung sounds and + crackles ( Minimal crackles at the bases) Cardiovascular: Rate/Rhythm: regular rate, regular rhythm and + bradycardic Heart Sounds: normal S1 and normal S2; no murmur Extremities: + edema ( trace edema bilaterally) Gastrointestinal (Abdomen): Inspection/Auscultation: normal bowel sounds; abdomen not distended Percussion/Palpation: abdomen soft; abdomen nontender Musculoskeletal: No acute arthritis involving any of the joint Neurologic: normal touch/pain/proprioception, moves all extremities and + focal motor deficit Lymphatic: no cervical or axillary lymphadenopathy Results & Data Results & Data Vital Signs (Past 12 Hours) Vital Signs Temp Pulse Pulse Pulse Resp BP BP 04/25/25 13:30 58 L 131/57 L 04/25/25 13:14 56 L 125/51 L 04/25/25 13:06 36.5 C 57 L 04/25/25 07:30 36.9 C 55 L 16 118/51 L 04/25/25 02:17 36.4 C L 60 16 151/77 H Pulse Ox O2 Del Method 04/25/25 13:30 04/25/25 13:14 04/25/25 13:06 04/25/25 07:30 96 Room Air 04/25/25 02:17 98 Room Air Laboratory Results Short CBC 04/24/25 04/25/25 Range/Units 16:30 07:06 WBC 3.10 L 2.83 L (4.8-10.8) K/ul Hgb 12.1 10.5 L (12.0-16.0) g/dl Hct 38.0 32.0 L (37.0-47.0) % Plt Count 89 L 80 L (130-400) K/uL BMP 04/24/25 04/25/25 16:30 07:06 Sodium 138 138 Potassium 3.7 4.0 Chloride 96 L 98 Carbon Dioxide 35 H 33 H BUN 16 24 H Creatinine 2.47 H 3.34 H D Glucose 130 H 98 Calcium 8.7 8.3 L Liver Function 04/24/25 Range/Units 16:30 Total Bilirubin 1.3 H (0.2-1.0) mg/dl Direct Bilirubin 0.2 (0-0.2) mg/dl AST 34 (13-39) U/L ALT 14 (7-52) U/L Alkaline Phosphatase 129 H (34-104) U/L Albumin 3.5 (3.4-5.0) gm/dl Urine 04/25/25 Range/Units 04:10 Urine Color Dark Yellow Urine Appearance Turbid A (Clear) Urine pH 6.5 (4.5-7.5) Ur Specific [place] 1.015 (1.000-1.030) Urine Protein 3+ H (Negative) Urine Glucose (UA) Negative (Negative) Medications Administered Current Inpatient Medications Aspirin (Aspirin 81 Mg Ectab) 81 mg PO QAM [facility] Stop: 05/25/25 08:59 Last Admin: 04/25/25 10:04 Dose: 81 mg Dextrose (Dextrose 50% 50 Ml Syringe) 25 - 50 ml IV UD PRN; Protocol PRN Reason: Hypoglycemia Protocol Stop: 05/24/25 22:01 Doxycycline Hyclate (Doxycycline Hyclate 100 Mg Cap) 100 mg PO BID [facility] Stop: 05/02/25 08:59 Last Admin: 04/25/25 10:07 Dose: 100 mg Glucagon (Glucagon For Inj 1 Mg Vial) 1 mg SQ UD PRN; Protocol PRN Reason: Hypoglycemia Protocol Stop: 05/24/25 22:01 Glucose (Glucose 40% Gel 15 Gm Tube) 15 - 30 gm PO UD PRN; Protocol PRN Reason: Hypoglycemia Protocol Stop: 05/24/25 22:01 Glucose (Glucose 10 Tab/Tube) 4 - 8 tab PO UD PRN; Protocol PRN Reason: Hypoglycemia Protocol Stop: 05/24/25 22:01 Piperacillin Sod/Tazobactam Sod (Zosyn) 4.5 gm in 100 mls @ 25 mls/hr IV Q8H [facility]; Protocol Stop: 05/05/25 05:59 Last Infusion: 04/25/25 10:07 Dose: Infused Sodium Chloride (Nss) 1,000 mls @ 0 mls/hr IV .Q0M PRN PRN Reason: For Hemodialysis Use ONLY Stop: 04/25/25 16:38 Insulin Aspart (Insulin Aspart Per Unit Charge) 0 units SC ACHS [facility] Stop: 05/24/25 22:01 Last Admin: 04/25/25 12:46 Dose: Not Given Insulin Glargine (Lantus Per Unit Charge) 5 units SQ HS [facility] Stop: 05/25/25 20:59 Mesalamine (Mesalamine 800 Mg Tabcr) 800 mg PO TID [facility] Stop: 05/25/25 08:59 Last Admin: 04/25/25 10:06 Dose: 800 mg Midodrine (Midodrine Hcl 10 Mg Tab) 20 mg PO MoWeFr@1200,1400 [facility] Stop: 05/29/25 11:59 Midodrine (Midodrine Hcl 10 Mg Tab) 20 mg PO SuTuThSa@0800,1400 [facility] Stop: 05/26/25 07:59 Midodrine (Midodrine Hcl 10 Mg Tab) 20 mg PO MoWeFr@1200,1400 [facility] Stop: 04/26/25 12:01 Last Admin: 04/25/25 12:46 Dose: 20 mg Miscellaneous (Carbohydrates For Hypoglycemia ) 15 - 30 gm PO UD PRN PRN Reason: Hypoglycemia Protocol Stop: 05/24/25 22:01 Pantoprazole Sodium (Pantoprazole 40 Mg Tab) 40 mg PO QAM [facility] Stop: 05/25/25 08:59 Last Admin: 04/25/25 10:07 Dose: 40 mg Ranolazine (Ranolazine 500 Mg Er Tab) 500 mg PO BID [facility] Stop: 05/25/25 08:59 Last Admin: 04/25/25 10:07 Dose: 500 mg Rifaximin (Rifaximin 550 Mg Tablet) 550 mg PO BID [facility] Stop: 05/25/25 08:59 Last Admin: 04/25/25 10:07 Dose: 550 mg Sacubitril/Valsartan (Valsartan/Sacubitril 26/24mg Tab) 1 tab PO AMHS [facility] Stop: 05/25/25 08:59 Last Admin: 04/25/25 10:04 Dose: 1 tab Simvastatin (Simvastatin 20 Mg Tab) 20 mg PO HS [facility] Stop: 05/25/25 20:59 Vitamin B Complex/Folic Acid (Nephrocaps) 1 cap PO DAILY [facility] Stop: 05/25/25 08:59 Last Admin: 04/25/25 10:08 Dose: 1 cap
[2025-04-25] MEDS ORDERED: LORazepam 0.5 MG TAB PO PRN (16:55)
[2025-04-25] MEDS: SIMVASTATIN 20 MG TAB PO SCH (20:17)
[2025-04-25] MEDS: ACETAMINOPHEN 325 MG TAB PO PRN (20:46)
[2025-04-25] MEDS: LANTUS PER UNIT CHARGE SQ SCH (20:47)
[2025-04-25] MEDS ORDERED: Nursing to Pharmacy Communication SCH (22:30)
[2025-04-26] MEDS: PIPERACILLIN/TAZOBACTAM 4.5 GM/100 ML BAG IV SCH (06:02)
[2025-04-26] MEDS ORDERED: SODIUM CHLORIDE 0.9% 1,000 ML IV PRN (07:04)
[2025-04-26 08:01] LABS: Hematocrit (blood only) 33.8 % (37.0-47.0); Hemoglobin 10.8 g/dl (12.0-16.0); Immature Granulocytes # (auto) 0.01 K/uL (0.01-0.20); Immature Granulocytes % (auto) 0.3 %; Mean Corpuscular Hemoglobin 31.0 pg (25.0-34.0); Mean Corpuscular Volume 97.1 fL (80.0-100.0); Platelet Count 89 K/uL (130-400); RDW Standard Deviation 53.9 fL (36.4-46.3); Red Blood Count 3.48 M/uL (4.20-5.40); White Blood Count 3.31 K/ul (4.8-10.8)
[2025-04-26] MEDS ORDERED: LIDOCAINE 4% CREAM 15 GM TUBE EXT PRN (08:12)
[2025-04-26 08:15] LABS: Anion Gap 8.0 (3-11); Blood Urea Nitrogen 29.0 mg/dl (6-23); Calcium 8.3 mg/dl (8.6-10.3); Carbon Dioxide 28.0 mmol/L (21-32); Chloride 100.0 mmol/L (98-107); Creatinine Clr Calc Pharmacy 17.4 ml/min; Glucose 163.0 mg/dl (70-99(Fasting)); Potassium 4.0 mmol/L (3.5-5.1); Sodium 136.0 mmol/L (136-145)
[2025-04-26] MEDS: MIDODRINE HCL 10 MG TAB PO SCH (08:26)
--- NOTE | 2025-04-26 10:46 | Nephrology Progress Note ---
Date of Service April 26, 2025 Assessment & Plan Admission and Anticipated Discharge Date Admission Date: April 25, 2025 Results & Data Vital Signs (Past 12 Hours) Vital Signs Temp Pulse Pulse Resp BP BP Pulse Ox 04/26/25 10:30 52 L 141/54 H 04/26/25 10:00 51 L 144/67 H 04/26/25 09:45 51 L 152/63 H 04/26/25 09:30 36.6 C 51 L 134/74 04/26/25 09:25 36.6 C 04/26/25 08:00 04/26/25 07:59 36.9 C 51 L 16 109/62 95 04/26/25 02:18 36.4 C L 54 L 16 122/61 94 O2 Del Method 04/26/25 10:30 04/26/25 10:00 04/26/25 09:45 04/26/25 09:30 04/26/25 09:25 04/26/25 08:00 Room Air 04/26/25 07:59 Room Air 04/26/25 02:18 Room Air
--- NOTE | 2025-04-26 10:49 | Dialysis Progress Note ---
Date of Service April 26, 2025 Assessment & Plan (1) ESRD (end stage renal disease) on dialysis: Plan: ESRD on MWF HD at [facility] w/ missed tx on Tuesday -4hrs tx today to optimize volume status -plan longer/routine HD on April 29 as inpatient or outpatient, likely the latter -no heparin on HD As needed Midodrine per routine with dialysis (2) Volume overload: Plan: pulmonary Edema on chest x-ray, significant edema on lower extremities limiting examinations; suspect diastolic heart failure of unclear chronicity but would need more data -low threshold for echocardiogram if results not included/available from outside facilities -continue Entresto -continue midodrine with hold parameters (3) Pancytopenia: Plan: noted. Could be explained as low platelets with liver disease, low hemoglobin with ESRD, low WBC from bone marrow suppression/ chronic infection -monitor daily - caution with heparin on dialysis: None ordered Admission and Anticipated Discharge Date Admission Date: April 25, 2025 Subjective No acute interval events clinically. Denies shortness of breath, worsening confusion, inability to maneuver. Tolerated dialysis yesterday with 2.4 L UF. Seen and evaluated on dialysis Review of Systems 2 Review of Systems: All systems reviewed & are unremarkable except as noted in Subjective Physical Exam 2 Constitutional: well developed (restless, on RA), + obese and cooperative; no acute distress Eyes: EOM intact bilaterally ENMT: Mouth: + dry oral mucous membranes Respiratory: normal respiratory effort Auscultation: + diminished lung sounds Cardiovascular: Rate/Rhythm: regular rhythm and + bradycardic Extremities: + edema and + AV fistula (LUE + t/b) Gastrointestinal (Abdomen): Inspection/Auscultation: normal bowel sounds P ercussion/Palpation: abdomen soft; abdomen nontender Musculoskeletal: Extremities: strength 5/5 throughout Skin: no rashes, warm and dry Results & Data Vital Signs (Past 12 Hours) Vital Signs Temp Pulse Pulse Resp BP BP Pulse Ox 04/26/25 10:30 52 L 141/54 H 04/26/25 10:00 51 L 144/67 H 04/26/25 09:45 51 L 152/63 H 04/26/25 09:30 36.6 C 51 L 134/74 04/26/25 09:25 36.6 C 04/26/25 08:00 04/26/25 07:59 36.9 C 51 L 16 109/62 95 04/26/25 02:18 36.4 C L 54 L 16 122/61 94 O2 Del Method 04/26/25 10:30 04/26/25 10:00 04/26/25 09:45 04/26/25 09:30 04/26/25 09:25 04/26/25 08:00 Room Air 04/26/25 07:59 Room Air 04/26/25 02:18 Room Air Laboratory Results 04/26/25 07:31 04/26/25 07:31
[2025-04-26] MEDS ORDERED: MIDODRINE HCL 10 MG TAB PO SCH (12:00)
[2025-04-26] MEDS: EPOETIN ALFA 10,000 UNITS/ML VIAL IV ONE (13:38)
--- NOTE | 2025-04-26 15:04 | Hospitalist Progress Note ---
Date of Service April 26, 2025 Assessment & Plan (1) Encephalopathy: Plan: Assessment and plan below following discussion of case with ED provider and reviewing patient history/pertinent normal/abnormal diagnostic test results. Acute Metabolic Encephalopathy Likely secondary to UTI Home neuropsychotropic medications possibly contributory Could be due to Bilateral LE cellulitis, underlying LE venous stasis, no sepsis for now, rule out DVT Has been started on intravenous Zosyn and oral doxycycline to cover both UTI and cellulitis Blood and urine cultures are pending She has been feeling much better and seems to have resolved confusion Wound care consult No more confusion and she has been feeling much better Appreciate wound care input and recommendation Awaiting culture and sensitivity of urine bingo manager to evaluate any need for home health nurse for dressing Likely discharge tomorrow H/O CHF, pulmonary congestion in the setting of ESRD on HD, patient without SOB complaints H/O CAD status post stent Denies any cardiac and respiratory symptoms End-stage renal disease on hemodialysis Appreciate nephrology input and recommendation Next dialysis on Tuesday DM2 insulin requiring, well-controlled as of recent hemoglobin A1c of 6.3 last year ISS BG goal 110-140, carb count coverage Hypertension, stable H/O hypotension on midodrine Hyperlipidemia, on statin Rx H/O NAFLD cirrhosis Chronic anemia, hemoglobin at baseline 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 SCDs Re: Thrombocytopenia Full code Patient requesting updates providers. Mr. Alan Hillman, contact #[phone]. Text document was generated using [employer] voice recognition software. It may contain grammatical or spelling errors. Kindly contact undersigned for clarification of any documentation item in question. Admission and Anticipated Discharge Date Admission Date: April 25, 2025 Subjective 04/25/2025 The patient was seen and examined in medical telemetry unit She was admitted with acute change in mental status and has been feeling much better since admission Does not have any more confusion and denies any other significant symptoms 04/26/2025 The patient was seen and examined in medical telemetry unit She is status post hemodialysis today Her confusion is resolved and denies any significant symptoms and wants to go home Review of Systems Review of Systems: All systems reviewed and are unremarkable except as noted below Physical Exam Physical Exam: Sitting at the edge of the bed without any acute distress Constitutional: well developed, well nourished, + ill appearing and + obese Eyes: PERRL, conjunctivae normal, anicteric sclerae ENMT: external ear and nose normal, oropharynx normal Neck: trachea midline, no thyromegaly Respiratory: no respiratory distress Auscultation: + diminished lung sounds and + crackles ( Minimal crackles at the bases) Cardiovascular: Rate/Rhythm: regular rate, regular rhythm and + bradycardic Heart Sounds: normal S1 and normal S2; no murmur Extremities: + edema ( trace edema bilaterally) Gastrointestinal (Abdomen): Inspection/Auscultation: normal bowel sounds; abdomen not distended Percussion/Palpation: abdomen soft; abdomen nontender Neurologic: normal touch/pain/proprioception, moves all extremities and + focal motor deficit Lymphatic: no cervical or axillary lymphadenopathy Results & Data Results & Data Vital Signs (Past 12 Hours) Vital Signs Temp Pulse Pulse Resp BP BP Pulse Ox 04/26/25 14:07 36.6 C 62 18 122/50 L 96 04/26/25 13:40 36.6 C 121/42 L 04/26/25 13:30 55 L 98/44 L 04/26/25 13:00 54 L 104/55 L 04/26/25 12:30 57 L 138/56 L 04/26/25 12:00 54 L 122/57 L 04/26/25 11:30 54 L 129/53 L 04/26/25 11:00 55 L 141/62 H 04/26/25 10:30 52 L 141/54 H 04/26/25 10:00 51 L 144/67 H 04/26/25 09:45 51 L 152/63 H 04/26/25 09:30 36.6 C 51 L 134/74 04/26/25 09:25 36.6 C 04/26/25 08:00 04/26/25 07:59 36.9 C 51 L 16 109/62 95 04/26/25 06:00 55 L O2 Del Method 04/26/25 14:07 Room Air 04/26/25 13:40 04/26/25 13:30 04/26/25 13:00 04/26/25 12:30 04/26/25 12:00 04/26/25 11:30 04/26/25 11:00 04/26/25 10:30 04/26/25 10:00 04/26/25 09:45 04/26/25 09:30 04/26/25 09:25 04/26/25 08:00 Room Air 04/26/25 07:59 Room Air 04/26/25 06:00 Laboratory Results Short CBC 04/26/25 Range/Units 07:31 WBC 3.31 L (4.8-10.8) K/ul Hgb 10.8 L (12.0-16.0) g/dl Hct 33.8 L (37.0-47.0) % Plt Count 89 L (130-400) K/uL BMP 04/26/25 07:31 Sodium 136 Potassium 4.0 Chloride 100 Carbon Dioxide 28 BUN 29 H Creatinine 4.07 H D Glucose 163 H Calcium 8.3 L Medications Administered Current Inpatient Medications Acetaminophen (Acetaminophen 325 Mg Tab) 650 mg PO Q6H PRN PRN Reason: Pain or Fever Stop: 05/25/25 20:13 Last Admin: 04/25/25 20:46 Dose: 650 mg Aspirin (Aspirin 81 Mg Ectab) 81 mg PO QAM [facility] Stop: 05/25/25 08:59 Last Admin: 04/26/25 08:19 Dose: 81 mg Dextrose (Dextrose 50% 50 Ml Syringe) 25 - 50 ml IV UD PRN; Protocol PRN Reason: Hypoglycemia Protocol Stop: 05/24/25 22:01 Doxycycline Hyclate (Doxycycline Hyclate 100 Mg Cap) 100 mg PO BID [facility] Stop: 05/02/25 08:59 Last Admin: 04/26/25 14:07 Dose: 100 mg Glucagon (Glucagon For Inj 1 Mg Vial) 1 mg SQ UD PRN; Protocol PRN Reason: Hypoglycemia Protocol Stop: 05/24/25 22:01 Glucose (Glucose 40% Gel 15 Gm Tube) 15 - 30 gm PO UD PRN; Protocol PRN Reason: Hypoglycemia Protocol Stop: 05/24/25 22:01 Glucose (Glucose 10 Tab/Tube) 4 - 8 tab PO UD PRN; Protocol PRN Reason: Hypoglycemia Protocol Stop: 05/24/25 22:01 Piperacillin Sod/Tazobactam Sod (Zosyn) 4.5 gm in 100 mls @ 25 mls/hr IV Q12H [facility]; Protocol Stop: 05/06/25 05:59 Last Infusion: 04/26/25 14:22 Dose: Infused Insulin Aspart (Insulin Aspart Per Unit Charge) 0 units SC ACHS [facility] Stop: 05/24/25 22:01 Last Admin: 04/26/25 14:06 Dose: Not Given Insulin Glargine (Lantus Per Unit Charge) 5 units SQ HS [facility] Stop: 05/25/25 20:59 Last Admin: 04/25/25 20:47 Dose: 5 units Lidocaine (Lidocaine 4% Cream 15 Gm Tube) 1 appln EXT PRN PRN PRN Reason: dialysis fistula Stop: 05/26/25 08:11 Lorazepam (Lorazepam 0.5 Mg Tab) 0.25 mg PO BID PRN PRN Reason: Anxiety Stop: 05/25/25 16:54 Mesalamine (Mesalamine 800 Mg Tabcr) 800 mg PO TID [facility] Stop: 05/25/25 08:59 Last Admin: 04/26/25 14:08 Dose: 800 mg Midodrine (Midodrine Hcl 10 Mg Tab) 20 mg PO MoWeFr@1200,1400 [facility] Stop: 05/29/25 11:59 Midodrine (Midodrine Hcl 10 Mg Tab) 20 mg PO SuTuThSa@0800,1400 [facility] Stop: 05/26/25 07:59 Last Admin: 04/26/25 08:26 Dose: 20 mg Miscellaneous (Carbohydrates For Hypoglycemia ) 15 - 30 gm PO UD PRN PRN Reason: Hypoglycemia Protocol Stop: 05/24/25 22:01 Pantoprazole Sodium (Pantoprazole 40 Mg Tab) 40 mg PO QAM [facility] Stop: 05/25/25 08:59 Last Admin: 04/26/25 08:19 Dose: 40 mg Ranolazine (Ranolazine 500 Mg Er Tab) 500 mg PO BID [facility] Stop: 05/25/25 08:59 Last Admin: 04/26/25 14:06 Dose: Not Given Rifaximin (Rifaximin 550 Mg Tablet) 550 mg PO BID [facility] Stop: 05/25/25 08:59 Last Admin: 04/26/25 08:20 Dose: 550 mg Ropinirole HCl (Ropinirole Hcl 1 Mg Tablet) 3 mg PO BID [facility] Stop: 05/25/25 20:59 Last Admin: 04/26/25 08:21 Dose: 3 mg Sacubitril/Valsartan (Valsartan/Sacubitril 26/24mg Tab) 1 tab PO AMHS [facility] Stop: 05/25/25 08:59 Last Admin: 04/26/25 14:06 Dose: Not Given Simvastatin (Simvastatin 20 Mg Tab) 20 mg PO HS [facility] Stop: 05/25/25 20:59 Last Admin: 04/25/25 20:17 Dose: 20 mg Vitamin B Complex/Folic Acid (Nephrocaps) 1 cap PO DAILY [facility] Stop: 05/25/25 08:59 Last Admin: 04/26/25 08:19 Dose: 1 cap
[2025-04-26] MEDS: LANTUS PER UNIT CHARGE SQ SCH (21:37)
[2025-04-26] MEDS: GABAPENTIN 300 MG CAP PO SCH (21:38)
[2025-04-27 06:38] LABS: Hematocrit (blood only) 36.0 % (37.0-47.0); Hemoglobin 12.1 g/dl (12.0-16.0); Immature Granulocytes # (auto) 0.01 K/uL (0.01-0.20); Immature Granulocytes % (auto) 0.2 %; Mean Corpuscular Hemoglobin 32.4 pg (25.0-34.0); Mean Corpuscular Volume 96.3 fL (80.0-100.0); Platelet Count 109 K/uL (130-400); RDW Standard Deviation 51.9 fL (36.4-46.3); Red Blood Count 3.74 M/uL (4.20-5.40); White Blood Count 4.04 K/ul (4.8-10.8)
[2025-04-27 07:01] LABS: Anion Gap 9.0 (3-11); Blood Urea Nitrogen 27.0 mg/dl (6-23); Calcium 8.9 mg/dl (8.6-10.3); Carbon Dioxide 27.0 mmol/L (21-32); Chloride 101.0 mmol/L (98-107); Creatinine Clr Calc Pharmacy 19.1 ml/min; Glucose 110.0 mg/dl (70-99(Fasting)); Potassium 4.2 mmol/L (3.5-5.1); Sodium 137.0 mmol/L (136-145)
--- NOTE | 2025-04-27 07:04 | Electrocardiogram Report ---
Test Reason : Blood Pressure : */* mmHG Vent. Rate : 65 BPM Atrial Rate : 65 BPM P-R Int : 280 ms QRS Dur : 134 ms QT Int : 518 ms P-R-T Axes : 61 -42 50 degrees QTcB Int : 538 ms Sinus rhythm with 1st degree A-V block Left axis deviation Non-specific intra-ventricular conduction block Minimal voltage criteria for LVH, may be normal variant ( [place] product ) Abnormal ECG No previous ECGs available Confirmed by Freddie Macario [id number] on 04/27/2025 7:04:18 AM Referred By: REFERRED SELF Confirmed By: Freddie Macario
[2025-04-27] MEDS: LINEZOLID 600 MG TAB PO SCH (09:35)
--- NOTE | 2025-04-27 11:40 | Hospitalist Progress Note ---
Date of Service April 27, 2025 Assessment & Plan (1) Encephalopathy: Plan: Assessment and plan below following discussion of case with ED provider and reviewing patient history/pertinent normal/abnormal diagnostic test results. Acute Metabolic Encephalopathy Likely secondary to UTI Home neuropsychotropic medications possibly contributory Could be due to Bilateral LE cellulitis, underlying LE venous stasis, no sepsis for now, rule out DVT Has been started on intravenous Zosyn and oral doxycycline to cover both UTI and cellulitis Blood and urine cultures are pending She has been feeling much better and seems to have resolved confusion Wound care consult No more confusion and she has been feeling much better Appreciate wound care input and recommendation Awaiting culture and sensitivity of urine client manager to evaluate any need for home health nurse for dressing She has been stable without any urinary symptoms She will be discharged on oral Zyvox for 5 days in total H/O CHF, pulmonary congestion in the setting of ESRD on HD, patient without SOB complaints H/O CAD status post stent Denies any cardiac and respiratory symptoms End-stage renal disease on hemodialysis Appreciate nephrology input and recommendation Next dialysis on Tuesday DM2 insulin requiring, well-controlled as of recent hemoglobin A1c of 6.3 last year ISS BG goal 110-140, carb count coverage Hypertension, stable H/O hypotension on midodrine Hyperlipidemia, on statin Rx Her blood pressure remains stable at 120/58 H/O NAFLD cirrhosis Chronic anemia, hemoglobin at baseline 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 SCDs Re: Thrombocytopenia Full code Patient requesting updates providers. Mr. Alan Hillman, contact #[phone]. Text document was generated using [employer] voice recognition software. It may contain grammatical or spelling errors. Kindly contact undersigned for clarification of any documentation item in question. Admission and Anticipated Discharge Date Admission Date: April 25, 2025 Subjective 04/25/2025 The patient was seen and examined in medical telemetry unit She was admitted with acute change in mental status and has been feeling much better since admission Does not have any more confusion and denies any other significant symptoms 04/26/2025 The patient was seen and examined in medical telemetry unit She is status post hemodialysis today Her confusion is resolved and denies any significant symptoms and wants to go home 04/27/2025 Patient was seen and examined in medical telemetry unit She has been feeling much better and she does not stay any longer in the hospital Denies any significant symptoms Review of Systems Review of Systems: All systems reviewed and are unremarkable except as noted below Physical Exam Physical Exam: Sitting at the edge of the bed without any acute distress Constitutional: well developed, well nourished, + ill appearing and + obese Eyes: PERRL, conjunctivae normal, anicteric sclerae ENMT: external ear and nose normal, oropharynx normal Neck: trachea midline, no thyromegaly Respiratory: no respiratory distress Auscultation: + diminished lung sounds and + crackles ( Minimal crackles at the bases) Cardiovascular: Rate/Rhythm: regular rate, regular rhythm and + bradycardic Heart Sounds: normal S1 and normal S2; no murmur Extremities: + edema ( trace edema bilaterally) Gastrointestinal (Abdomen): Inspection/Auscultation: normal bowel sounds; abdomen not distended Percussion/Palpation: abdomen soft; abdomen nontender Musculoskeletal: No acute fractures involving any of the joint Neurologic: normal touch/pain/proprioception, moves all extremities and + focal motor deficit Lymphatic: no cervical or axillary lymphadenopathy Results & Data Results & Data Vital Signs (Past 12 Hours) Vital Signs Temp Pulse Pulse Pulse Resp BP BP 04/27/25 11:21 36.4 C L 60 18 120/58 L 04/27/25 08:05 04/27/25 07:40 36.6 C 56 L 18 111/58 L 04/27/25 06:45 70 04/27/25 04:25 36.6 C 69 14 119/70 04/27/25 01:01 64 Pulse Ox O2 Del Method 04/27/25 11:21 94 Room Air 04/27/25 08:05 Room Air 04/27/25 07:40 95 Room Air 04/27/25 06:45 04/27/25 04:25 95 Room Air 04/27/25 01:01 Laboratory Results Short CBC 04/27/25 Range/Units 06:16 WBC 4.04 L (4.8-10.8) K/ul Hgb 12.1 (12.0-16.0) g/dl Hct 36.0 L (37.0-47.0) % Plt Count 109 L (130-400) K/uL BMP 04/27/25 06:16 Sodium 137 Potassium 4.2 Chloride 101 Carbon Dioxide 27 BUN 27 H Creatinine 3.66 H D Glucose 110 H Calcium 8.9 Medications Administered Current Inpatient Medications Acetaminophen (Acetaminophen 325 Mg Tab) 650 mg PO Q6H PRN PRN Reason: Pain or Fever Stop: 05/25/25 20:13 Last Admin: 04/25/25 20:46 Dose: 650 mg Aspirin (Aspirin 81 Mg Ectab) 81 mg PO QAM SWATI Stop: 05/25/25 08:59 Last Admin: 04/27/25 08:05 Dose: 81 mg Dextrose (Dextrose 50% 50 Ml Syringe) 25 - 50 ml IV UD PRN; Protocol PRN Reason: Hypoglycemia Protocol Stop: 05/24/25 22:01 Gabapentin (Gabapentin 300 Mg Cap) 300 mg PO QPM SWATI Stop: 05/26/25 20:59 Last Admin: 04/26/25 21:38 Dose: 300 mg Glucagon (Glucagon For Inj 1 Mg Vial) 1 mg SQ UD PRN; Protocol PRN Reason: Hypoglycemia Protocol Stop: 05/24/25 22:01 Glucose (Glucose 40% Gel 15 Gm Tube) 15 - 30 gm PO UD PRN; Protocol PRN Reason: Hypoglycemia Protocol Stop: 05/24/25 22:01 Glucose (Glucose 10 Tab/Tube) 4 - 8 tab PO UD PRN; Protocol PRN Reason: Hypoglycemia Protocol Stop: 05/24/25 22:01 Insulin Aspart (Insulin Aspart Per Unit Charge) 0 units SC ACHS [facility] Stop: 05/24/25 22:01 Last Admin: 04/27/25 09:35 Dose: 2 units Insulin Glargine (Lantus Per Unit Charge) 10 units SQ HS SWATI Stop: 05/26/25 21:29 Last Admin: 04/26/25 21:37 Dose: 10 units Lidocaine (Lidocaine 4% Cream 15 Gm Tube) 1 appln EXT PRN PRN PRN Reason: dialysis fistula Stop: 05/26/25 08:11 Linezolid (Linezolid 600 Mg Tab) 600 mg PO BID [facility] Stop: 05/02/25 08:59 Last Admin: 04/27/25 09:35 Dose: 600 mg Lorazepam (Lorazepam 0.5 Mg Tab) 0.25 mg PO BID PRN PRN Reason: Anxiety Stop: 05/25/25 16:54 Mesalamine (Mesalamine 800 Mg Tabcr) 800 mg PO TID [facility] Stop: 05/25/25 08:59 Last Admin: 04/27/25 08:05 Dose: 800 mg Midodrine (Midodrine Hcl 10 Mg Tab) 20 mg PO MoWeFr@1200,1400 [facility] Stop: 05/29/25 11:59 Midodrine (Midodrine Hcl 10 Mg Tab) 20 mg PO SuTuThSa@0800,1400 [facility] Stop: 05/26/25 07:59 Last Admin: 04/27/25 08:05 Dose: 20 mg Miscellaneous (Carbohydrates For Hypoglycemia ) 15 - 30 gm PO UD PRN PRN Reason: Hypoglycemia Protocol Stop: 05/24/25 22:01 Pantoprazole Sodium (Pantoprazole 40 Mg Tab) 40 mg PO QAM SWATI Stop: 05/25/25 08:59 Last Admin: 04/27/25 08:05 Dose: 40 mg Ranolazine (Ranolazine 500 Mg Er Tab) 500 mg PO BID SW[facility]I Stop: 05/25/25 08:59 Last Admin: 04/27/25 08:05 Dose: 500 mg Rifaximin (Rifaximin 550 Mg Tablet) 550 mg PO BID [facility]I Stop: 05/25/25 08:59 Last Admin: 04/27/25 08:05 Dose: 550 mg Ropinirole HCl (Ropinirole Hcl 1 Mg Tablet) 3 mg PO BID [facility] Stop: 05/25/25 20:59 Last Admin: 04/27/25 08:05 Dose: 3 mg Sacubitril/Valsartan (Valsartan/Sacubitril 26/24mg Tab) 1 tab PO AMHS SWATI Stop: 05/25/25 08:59 Last Admin: 04/27/25 08:05 Dose: 1 tab Simvastatin (Simvastatin 20 Mg Tab) 20 mg PO HS SWATI Stop: 05/25/25 20:59 Last Admin: 04/26/25 21:38 Dose: 20 mg Vitamin B Complex/Folic Acid (Nephrocaps) 1 cap PO DAILY [facility] Stop: 05/25/25 08:59 Last Admin: 04/27/25 08:05 Dose: 1 cap
--- NOTE | 2025-04-28 15:03 | Discharge Summary ---
Date of Service April 28, 2025 Admission HPI Per Admitting Provider History obtained from patient, family, and records. Limited history from patient secondary to lethargy and confusion Medical history significant for CHF, CAD status post stent, hypertension, hypotension on midodrine, hyperlipidemia, ESRD on HD, DM2 insulin requiring, NAFLD cirrhosis, GERD, history of ischemic colitis as per records, chronic anemia (baseline hemoglobin of 11), chronic thrombocytopenia, mood disorder, past tobacco use. Recent confinement [facility] last week as per for liver and ammonia issues. Patient missed outpatient hemodialysis 2 days ago and was 10.9 kg overweight upon arrival [facility] dialysis [place] in [place] as per note. Patient noted to be confused and sleepy after 5-hour dialysis session. Patient denies headache, chest pain, SOB, abdominal pain, or dysuria symptoms. Chronic leg wounds a little worse than usual as per patient. Patient brought to ER for evaluation. Patient does not know where she is and why she is at the hospital. 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 Admission Exam Per Admitting Provider Physical Exam: GENERAL: Lethargic, obese, no respiratory distress SKIN: Normal color, warm HEENT: [place] palpebral conjunctivae, no ptosis, dry buccal mucosa NECK : Supple, short neck, no tenderness CHEST : Decreased breath sounds, no tenderness HEART : RRR, no obvious murmurs ABDOMEN: Some distention, nontender EXTREMITIES : Bilateral LE venous stasis with ulcerated wounds and erythematous areas, palpable pulses, no other conspicuous deformities noted NEUROLOGIC : Lethargic, no facial asymmetry, gait and stance not assessed Principal Diagnosis Acute metabolic and cephalopathy, UTI, end-stage renal disease on hemodialysis Discharge Exam Sitting at the edge of the bed without any acute distress Constitutional well developed, well nourished, + ill appearing and + obese Eyes PERRL, conjunctivae normal, anicteric sclerae ENMT external ear and nose normal, oropharynx normal Neck trachea midline, no thyromegaly Respiratory no respiratory distress Auscultation: + diminished lung sounds and + crackles ( Minimal crackles at the bases) Cardiovascular Rate/Rhythm: regular rate, regular rhythm and + bradycardic Heart Sounds: normal S1 and normal S2; no murmur Extremities: + edema ( trace edema bilaterally) Gastrointestinal (Abdomen) Inspection/Auscultation: normal bowel sounds; abdomen not distended Percussion/Palpation: abdomen soft; abdomen nontender Neurologic normal touch/pain/proprioception, moves all extremities and + focal motor deficit Lymphatic no cervical or axillary lymphadenopathy Discharge Data Allergies Allergy/AdvReac Type Severity Reaction Status Date / Time atorvastatin [From Lipitor] Allergy Unknown Verified 04/24/25 19:33 cephalexin [From Keflex] Allergy itchy/vomit Verified 04/24/25 19:33 ing Sulfa (Sulfonamide Allergy Unknown Verified 04/24/25 19:33 Antibiotics) Consultations 04/24/25 19:26 ED Decision to Admit Stat 04/25/25 05:24 Consult Nephrology Routine 04/25/25 05:46 HIM [Consult Health Information Management] Routine Ordered Studies 04/24/25 17:33 CT head/brain wo con Stat 04/24/25 21:54 US venous doppler LE BI Stat Hospital Course (1) Encephalopathy: Assessment and plan below following discussion of case with ED provider and reviewing patient history/pertinent normal/abnormal diagnostic test results. Acute Metabolic Encephalopathy Likely secondary to UTI Home neuropsychotropic medications possibly contributory Could be due to Bilateral LE cellulitis, underlying LE venous stasis, no sepsis for now, rule out DVT Has been started on intravenous Zosyn and oral doxycycline to cover both UTI and cellulitis Blood and urine cultures are pending She has been feeling much better and seems to have resolved confusion Wound care consult No more confusion and she has been feeling much better Appreciate wound care input and recommendation Awaiting culture and sensitivity of urine locker room manager to evaluate any need for home health nurse for dressing She has been stable without any urinary symptoms She will be discharged on oral Zyvox for 5 days in total H/O CHF, pulmonary congestion in the setting of ESRD on HD, patient without SOB complaints H/O CAD status post stent Denies any cardiac and respiratory symptoms End-stage renal disease on hemodialysis Appreciate nephrology input and recommendation Next dialysis on Tuesday DM2 insulin requiring, well-controlled as of recent hemoglobin A1c of 6.3 last year ISS BG goal 110-140, carb count coverage Hypertension, stable H/O hypotension on midodrine Hyperlipidemia, on statin Rx Her blood pressure remains stable at 120/58 H/O NAFLD cirrhosis Chronic anemia, hemoglobin at baseline 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 SCDs Re: Thrombocytopenia Full code Patient requesting updates providers. Mr. Alan Hillman, contact #[phone]. Text document was generated using [employer] voice recognition software. It may contain grammatical or spelling errors. Kindly contact undersigned for clarification of any documentation item in question. Total Time Total Time Spent Total Time Spent (In Minutes): 35 Minutes Discharge Plan Discharge Items Patient Disposition: Home - Home Health Services Reason For Visit: AMS Discharge Diagnosis: Acute metabolic and cephalopathy, UTI, end-stage renal disease on hemodialysis Condition on Discharge: Fair Activity: Resume your previous activity Non-emergency contact: Primary Care Provider Call non-emergency contact if: you have any medication questions and your symptoms worsen Follow-up/Referrals: PCP,NO [Primary Care Provider] - Diet: Carb Consistent or DM2 and Dialysis Renal Addtl Attending Provider Instructions: Please take precautions to avoid falls Finish the course of antibiotic as advised Continue with your dialysis as an outpatient Please keep your appointment with a healthcare provider Pending Studies at Discharge: No Stand-Alone Forms: [employer], Smoking Cessation Medications and DC Order Prescriptions: New linezolid 600 mg Tablet 600 mg PO BID Qty: 10 0RF Continued ropinirole 3 mg tablet 3 mg PO BID mesalamine 800 mg tablet,delayed release (DR/EC) 800 mg PO TID gabapentin 300 mg capsule 300 mg PO QPM lorazepam 0.5 mg tablet 0.25 mg PO BID PRN (Reason: Anxiety) sertraline 100 mg tablet 100 mg PO HS simvastatin 20 mg tablet 20 mg PO HS omeprazole 20 mg capsule,delayed release(DR/EC) 20 mg PO QAM Xifaxan 550 mg tablet 550 mg PO BID aspirin 81 mg Tablet,Delayed Release (Dr/Ec) 81 mg PO QAM cholecalciferol (vitamin D3) [Vitamin D3] 25 mcg (1,000 unit) Tablet 25 mcg PO DAILY insulin glargine [Lantus Solostar U-100 Insulin] 100 unit/mL (3 mL) Insulin Pen 10 unit SUBCUT HS ferric citrate [Auryxia] 210 mg iron tablet 1 tab PO TIDM sacubitril-valsartan [Entresto] 24-26 mg tablet 1 tab PO AMHS Rx Instructions: hold before HD for low BP B complex-vitamin C-folic acid 0.8 mg Tablet 1 tab PO DAILY ranolazine 500 mg tablet extended release 12 hr 500 mg PO BID midodrine 10 mg tablet 20 mg PO UD Rx Instructions: 20 mg before and 20 mg during tx (M/W/F) 20 mg bid on non HD days Discontinued nitrofurantoin monohyd/m-cryst 100 mg capsule 100 mg PO BID Rx Instructions: ordered 04/20/25 take for 7 days Discharge Orders: Discharge Order (Routine); Ordered 04/27/25 Ordered By: Kevin Umana Admission Data Admit Date/Time: 04/25/25 05:24 Attending Provider: Kevin Umana Admit Provider: Patricio Alcantara Primary Care Provider: PCP,NO Other Providers: Patricio Alcantara; Roxana Marks; Toney Morales; Sharon Mcdermott; Hiral Guerrero; Batsheva Mena Other Interventions: Discharge Summary Assessment (RN) Last Done: 04/27/25 12:15
[2025-04-29] MEDS ORDERED: MIDODRINE HCL 10 MG TAB PO SCH (12:00)
== END 2025-04-27 14:10 | disposition home health service (06) | DRG 70 ==
LOC: 2N 16:12 → ED 16:12 → 2N 21:47

== ENCOUNTER 2025-05-29 14:45 | Inpatient (IN) ==
[2025-05-29 15:24] LABS: Base Excess VBG 14.6 mEq/L; HCO3 VBG 39 mmol/L; Oxygen Saturation VBG 79.6 %; PCO2 VBG 47 mmHg (38-50); PO2 VBG 45 mmHg; pH VBG 7.53 (7.36-7.41)
[2025-05-29 15:30] LABS: Hematocrit (blood only) 29.9 % (37.0-47.0); Hemoglobin 9.7 g/dl (12.0-16.0); Immature Granulocytes # (auto) 0.02 K/uL (0.01-0.20); Immature Granulocytes % (auto) 0.4 %; Mean Corpuscular Hemoglobin 31.2 pg (25.0-34.0); Mean Corpuscular Volume 96.1 fL (80.0-100.0); Platelet Count 108 K/uL (130-400); RDW Standard Deviation 58.3 fL (36.4-46.3); Red Blood Count 3.11 M/uL (4.20-5.40); White Blood Count 4.76 K/ul (4.8-10.8)
[2025-05-29 15:47] LABS: Alanine Aminotransferase 13 U/L (7-52); Albumin Globulin Ratio 0.7 (0.9-2); Albumin Level 3.2 gm/dl (3.4-5.0); Alkaline Phosphatase 126 U/L (34-104); Anion Gap 9 (3-11); Bilirubin,Total 1.4 mg/dl (0.2-1.0); Blood Urea Nitrogen 21 mg/dl (6-23); Calcium 8.7 mg/dl (8.6-10.3); Carbon Dioxide 31 mmol/L (21-32); Chloride 98 mmol/L (98-107); Globulin 4.3 gm/dl (2.5-4.0); Glucose 135 mg/dl (70-99(Fasting)); Potassium 3.8 mmol/L (3.5-5.1); Sodium 138 mmol/L (136-145); Total Protein 7.5 gm/dl (6.0-8.3)
[2025-05-29 16:01] LABS: Thyroid Stimulating Hormone 1.350 uIu/ml (0.300-4.500)
--- NOTE | 2025-05-29 16:08 | CT Scan Report ---
Clinical History: Lethargy and confusion. Technique: Axial computed tomography images were obtained of the brain from the vertex to the skull base without intravenous contrast. Findings: There is no sign of intracranial hemorrhage. There is an old infarct of the right caudate nucleus. No midline shift or other form of herniation is identified. There is no hydrocephalus. No obvious mass lesion is seen on this noncontrast examination. The visualized portions of the orbits and paranasal sinuses appear unremarkable. 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
[2025-05-29 16:37] LABS: Chlamydia pneumoniae PCR Not Detected (NotDetected); Coronavirus 229E PCR Not Detected (NotDetected); Coronavirus CoV-2 (COVID19)PCR Not Detected (NotDetected); Coronavirus HKU1 PCR Not Detected (NotDetected); Coronavirus NL63 PCR Not Detected (NotDetected); Coronavirus OC43PCR Not Detected (NotDetected); Human Metapneumovirus PCR Not Detected (NotDetected); Parainfluenza Virus 1 PCR Not Detected (NotDetected); Parainfluenza Virus 2 PCR Not Detected (NotDetected); Parainfluenza Virus 3 PCR Not Detected (NotDetected); Parainfluenza Virus 4 PCR Not Detected (NotDetected); Respiratory Syncytial VirusPCR Not Detected (NotDetected); Rhinovirus/Enterovirus PCR Not Detected (NotDetected)
--- NOTE | 2025-05-29 16:37 | XRay Report ---
Chest radiograph, one view History: Weakness Comparison: 04/24/2025 Findings: Single AP view of the chest performed. No focal consolidation or pleural effusion. No pneumothorax. The cardiomediastinal silhouette is enlarged. Mildly prominent pulmonary vascularity. No evidence for lymphadenopathy. No visualized bony or soft tissue abnormality. Impression: Mildly prominent pulmonary vascularity again seen, suggesting pulmonary venous hypertension. The cardiac silhouette appears enlarged. Electronically signed by Akin Ornelas 05-29-2025 4:37 PM
--- NOTE | 2025-05-29 17:20 | History & Physical Report ---
<Statement entered by Jj Eric DO - 05/29/25 19:50> I have seen and examined the patient and have discussed the case with the advance practice provider. I have reviewed the advanced practitioner's documentation, and I agree with, and take responsibility for that plan of care. Patient seen sometime after ANNE had evaluated the patient. Patient seems to be a little bit more awake and responsive but overall sleeping through the exam. Did offer a little bit more simple sentence answers to questions but again would fall right back to sleep. Reviewing objective data, high suspicion for encephalopathy associate with medications and missed dialysis. Extremely rare to have hepatic encephalopathy with a low/normal ammonia level. Agree with ongoing observation and supportive care. Monitor for any infectious process but will hold on antibiotics at this time. Will need nephrology consultation for hemodialysis Further plan of care as outlined below I spent a total of 18 minutes coordinating, documenting, and providing care for this patient excluding time spent by another provider/QHP. Date of Service May 29, 2025 Assessment & Plan (1) Encephalopathy: (2) ESRD (end stage renal disease) on dialysis: (3) Insulin-requiring or dependent type II diabetes mellitus: (4) Chronic hypotension: (5) Cirrhosis: Plan This is a 65 y/o female with ESRD on HD (M/W/F), CAD s/p stent, CHF, hypotension (on midodrine), IRDM2, MASH Cirrhosis, GERD, chronic anemia, and other history as outlined below who was sent to the ED today from dialysis after she became more lethargic and confused after today's treatment. Initial labs in the ED s howed H&H 9.7/29.9, WBCs 4.76, platelets 108. VBG with pH 7.53, pCO2 47, pO2 45. TSH normal at 1.350, ammonia normal at 56. [employer] respiratory panel negative. CT head without acute pathology. Pt referred for observation for ongoing lethargy of unclear etiology. Similar symptoms previously with UTI - RN bladder scanned patient in the ED but no urine at present. #Encephalopathy - likely multifactorial in the setting of known ESRD with missed HD, cirrhosis w/ hx hepatic encephalopathy, neuropsychotropic medications, and possible UTI - Observe overnight on med tele - NPO until mental status improved due to aspiration risk - Hold lorazepam, gabapentin for now - Urinalysis and urine tox once able to obtain specimen - will hold on antibiotics for now but re-evaluate if becomes febrile, UA comes back abnormal #ESRD on HD - last dialysis today, next due on Tuesday - Labs in the AM - If pt anticipated to be in the hospital on Tuesday, will need to consult nephro for HD #Insulin-requiring DM2 (last A1c in Apr was 6.1) - Insulin sliding scale - BSG ACHS - Diabetic diet once more awake #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 All questions answered. PT/OT consults once mental status improves. Pt seen and reviewed with collaborating physician, Dr. Eric. Plan of care discussed and as outlined above. Refugio Castro PA-C History of Present Illness Chief Complaint: lethargy Primary Care Provider: NO PCP This is a 65 y/o female with ESRD on HD (M/W/F), CAD s/p stent, CHF, hypotension (on midodrine), IRDM2, MASH Cirrhosis, GERD, chronic anemia, and other history as outlined below who was sent to the ED today from dialysis after she became more lethargic and confused after today's treatment. History is essentially unobtainable from patient so history obtained from review of medical records and from family. Per family, pt has been complaining of "not feeling well" for the last few days. She missed her dialysis treatment on Tuesday because of feeling poorly but did go today. The patient reportedly completed her treatment but was then noted to be lethargic, difficult to arouse so sent to the ED via EMS. Family notes that she has been more "shaky" over the last few days, one episode of vomiting but no diarrhea that they are aware of. No change in chronic cough, no congestion or rhinorrhea. Appetite has been at baseline. She has seemed more tired than usual. They report that she has had similar symptoms in the past with UTIs and when her ammonia level is elevated. Allergies Allergy/AdvReac Type Severity Reaction Status Date / Time atorvastatin [From Lipitor] Allergy Unknown Verified 04/24/25 19:33 cephalexin [From Keflex] Allergy itchy/vomit Verified 04/24/25 19:33 ing Sulfa (Sulfonamide Allergy Unknown Verified 04/24/25 19:33 Antibiotics) Home Medications Medication Instructions Recorded Confirmed Type aspirin 81 mg tablet,delayed 81 mg PO QAM 04/24/25 05/29/25 History release cholecalciferol (vitamin D3) 25 25 mcg PO DAILY 04/24/25 05/29/25 History mcg (1,000 unit) tablet (Vitamin D3) ferric citrate 210 mg iron tablet 1 tab PO TIDM 04/24/25 05/29/25 History (Auryxia) gabapentin 300 mg capsule 300 mg PO QPM 04/24/25 05/29/25 History insulin glargine 100 unit/mL (3 10 unit subcut HS 04/24/25 05/29/25 History mL) subcutaneous pen (Lantus Solostar U-100 Insulin) lorazepam 0.5 mg tablet 0.25 mg PO BID PRN Anxiety 04/24/25 05/29/25 History mesalamine 800 mg tablet,delayed 800 mg PO TID 04/24/25 05/29/25 History release midodrine 10 mg tablet 20 mg PO UD 04/24/25 05/29/25 History omeprazole 20 mg capsule,delayed 20 mg PO QAM 04/24/25 05/29/25 History release ranolazine 500 mg tablet,extended 500 mg PO BID 04/24/25 05/29/25 History release,12 hr rifaximin 550 mg tablet (Xifaxan) 550 mg PO BID 04/24/25 05/29/25 History ropinirole 3 mg tablet 3 mg PO BID 04/24/25 05/29/25 History sacubitril 24 mg-valsartan 26 mg 1 tab PO AMHS 04/24/25 05/29/25 History tablet (Entresto) sertraline 100 mg tablet 100 mg PO HS 04/24/25 05/29/25 History simvastatin 20 mg tablet 20 mg PO HS 04/24/25 05/29/25 History vitamin B complex-vitamin C-folic 1 tab PO DAILY 04/24/25 05/29/25 History acid 0.8 mg tablet Past Med/Surg History Problem List (Updated 05/29/25 @ 18:10 by Joyce Castro PA-C) Cirrhosis Chronic hypotension Insulin-requiring or dependent type II diabetes mellitus (Acute) Volume overload Pancytopenia ESRD (end stage renal disease) on dialysis (Acute) Encephalopathy (Acute) Medical History (Updated 05/29/25 @ 18:10 by Joyce Castro PA-C) Ischemic colitis CHF (congestive heart failure) Essential hypertension Dyslipidemia Chronic anemia Metabolic dysfunction-associated steatohepatitis (MASH) CAD (coronary artery disease) Surgical History (Updated 05/29/25 @ 17:26 by Joyce Castro PA-C) History of tympanoplasty History of hernia repair History of hysterectomy Hx of heart artery stent Family History (Updated 05/29/25 @ 17:26 by Joyce Castro PA-C) Other Diabetes Heart disease Social History (Updated 05/29/25 @ 17:26 by Joyce Castro PA-C) Smoking Status: Former smoker Tobacco Type: Cigarettes Cigarettes Per Day: 3-4; Second Hand Exposure: Yes; Do You Dip or Chew Tobacco: No; Hx Alcohol Use: No Hx Substance Use: No Preferred Language: Indian Communication Ability: Effective [employer] Required: No Beliefs That Will Affect Care: None Current Living Situation: Spouse and Family Current Living Situation Comment: and son Feels Safe at Home: Yes Assistive Devices: Walker and Wheelchair Review of Systems 2 Review of Systems: Unobtainable due to reduced consciousness Physical Exam Physical Exam: General: lethargic, arouses to tactile stimuli but quickly falls back asleep, occasionally answers yes/no questions HEENT: pupils equal and reactive to light, moist mucus membranes Neck: supple, trachea midline Heart: RRR Lungs: Clear to auscultation on the anterior but diminished air movement Abdomen: soft, +BS Extremities: chronic stasis changes bilateral LE, no significant pedal edema Results & Data Results & Data Vital Signs (Past 12 Hours) Vital Signs Temp Pulse Resp BP Pulse Ox O2 Del Method 05/29/25 17:00 68 21 129/62 95 05/29/25 16:33 69 18 141/58 H 95 05/29/25 16:21 69 19 150/72 H 97 05/29/25 15:23 73 05/29/25 14:58 97 Room Air 05/29/25 14:52 37.6 C H 72 20 131/56 L 97 Room Air Laboratory Results Lab Results 05/29/25 05/29/25 Range/Units 15:15 15:28 WBC 4.76 L (4.8-10.8) K/ul RBC 3.11 L (4.20-5.40) M/uL Hgb 9.7 L (12.0-16.0) g/dl Hct 29.9 L (37.0-47.0) % MCV 96.1 (80.0-100.0) fL MCH 31.2 (25.0-34.0) pg MCHC 32.4 (32.0-36.0) g/dL RDW Std Deviation 58.3 H (36.4-46.3) fL RDW Coeff of Danette 17.4 H (11.5-14.5) % Plt Count 108 L (130-400) K/uL MPV 11.3 (9.4-12.4) fL Immature Gran % (Auto) 0.4 % Neut % (Auto) 76.4 % Lymph % (Auto) 11.3 % [place] % (Auto) 10.5 % Eos % (Auto) 0.8 % Baso % (Auto) 0.6 % Neut # (Auto) 3.63 (1.40-6.50) K/uL Lymph # (Auto) 0.54 L (1.20-3.40) K/uL [place] # (Auto) 0.50 (0.11-0.59) K/uL Eos # (Auto) 0.04 (0.00-0.50) K/uL Baso # (Auto) 0.03 (0.00-0.20) K/uL Immature Gran # (Auto) 0.02 (0.01-0.20) K/uL VBG pH 7.53 H (7.36-7.41) VBG pCO2 47 (38-50) mmHg VBG pO2 45 mmHg VBG HCO3 39 mmol/L VBG O2 Saturation 79.6 % VBG Base Excess 14.6 mEq/L Sodium 138 (136-145) mmol/L Potassium 3.8 (3.5-5.1) mmol/L Chloride 98 (98-107) mmol/L Carbon Dioxide 31 (21-32) mmol/L Anion Gap 9 (3-11) BUN 21 (6-23) mg/dl Creatinine 3.01 H (0.6-1.2) mg/dl Est Cr Clr Drug Dosing Not Reportable eGFR 16.66 BUN/Creatinine Ratio 7.0 L (10-20) Glucose 135 H (70-99(Fasting)) mg/dl Lactate 1.8 (0.4-2.0) mmol/L Calcium 8.7 (8.6-10.3) mg/dl Total Bilirubin 1.4 H (0.2-1.0) mg/dl AST 27 (13-39) U/L ALT 13 (7-52) U/L Alkaline Phosphatase 126 H (34-104) U/L Ammonia 56.0 (18-72) umol/L Total Protein 7.5 (6.0-8.3) gm/dl Albumin 3.2 L (3.4-5.0) gm/dl Globulin 4.3 H (2.5-4.0) gm/dl Albumin/Globulin Ratio 0.7 L (0.9-2) TSH 1.350 (0.300-4.500) uIu/ml Adenovirus (PCR) Not Detected (NotDetected) B. pertussis DNA (PCR) Not Detected (NotDetected) B.parapertussis DNA PCR Not Detected (NotDetected) C. pneumoniae DNA (PCR) Not Detected (NotDetected) Coronavirus OC43 (PCR) Not Detected (NotDetected) Coronavirus HKU1 (PCR) Not Detected (NotDetected) Coronavirus 229E (PCR) Not Detected (NotDetected) SARS-CoV-2 (PCR) Not Detected (NotDetected) Coronavirus NL63 (PCR) Not Detected (NotDetected) Human Metapneumovir PCR Not Detected (NotDetected) Influenza Type A (PCR) Not Detected (NotDetected) Influenza Type B (PCR) Not Detected (NotDetected) M. pneumoniae (PCR) Not Detected (NotDetected) Parainfluenza 1 (PCR) Not Detected (NotDetected) Parainfluenza 2 (PCR) Not Detected (NotDetected) Parainfluenza 3 (PCR) Not Detected (NotDetected) Parainfluenza 4 (PCR) Not Detected (NotDetected) RSV (PCR) Not Detected (NotDetected) Entero/Rhino (PCR) Not Detected (NotDetected) Diagnostic Findings Chest X-Ray 05/29/25 14:58 Chest radiograph, one view History: Weakness Comparison: 04/24/2025 Findings: Single AP view of the chest performed. No focal consolidation or pleural effusion. No pneumothorax. The cardiomediastinal silhouette is enlarged. Mildly prominent pulmonary vascularity. No evidence for lymphadenopathy. No visualized bony or soft tissue abnormality. Impression: Mildly prominent pulmonary vascularity again seen, suggesting pulmonary venous hypertension. The cardiac silhouette appears enlarged. Electronically signed by Akin Ornelas 05-29-2025 4:[address] 05/29/25 15:14 Clinical History: Lethargy and confusion. Technique: Axial computed tomography images were obtained of the brain from the vertex to the skull base without intravenous contrast. Findings: There is no sign of intracranial hemorrhage. There is an old infarct of the right caudate nucleus. No midline shift or other form of herniation is identified. There is no hydrocephalus. No obvious mass lesion is seen on this noncontrast examination. The visualized portions of the orbits and paranasal sinuses appear unremarkable. 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
--- NOTE | 2025-05-29 17:39 | Emergency Department Note ---
Impression & Plan Encephalopathy, Insulin-requiring or dependent type II diabetes mellitus, ESRD (end stage renal disease) on dialysis ED Provider Note NAME: RICCI ESCOBAR AGE: 65 SEX: F : 1960 ARRIVES VIA: Ambulance INFORMANT: Patient, ED PROVIDER(S): Emily Fortune MD CHIEF COMPLAINT: Confusion HPI: This is a 65-year-old female presenting for confusion/lethargy. Patient was transported from dialysis. Patient completed treatment and is found to be lethargic. She has somewhat arousable but cannot provide any history at this time. She wakes up asked where she is and then falls back asleep. She is able to follow some commands including moving her upper and lower extremities. Otherwise examination and history is limited. ROS: Unable to obtain PHYSICAL EXAMINATION: General: resting comfortably in no acute distress Head: Normocephalic and atraumatic Eyes: Normal inspection, extraocular muscles intact Ear, nose, throat: Normal external exam Neck: Normal range of motion Respiratory: symmetric chest rise, no respiratory distress Cardiovascular: Regular rate/rhythm Extremities: moves all extremities Neuro: Sleeping arousable to painful stimuli, follows commands to move upper and lower extremities, no clear deficits or facial droop MEDICAL DECISION MAKING: This is a 65-year-old female presenting for confusion/lethargy. Patient is currently maintaining airway on her own and has normal vital signs. She is sleeping and snoring a mildly and is able to be awoken with deep sternal rub. She awakens, asked where she is and then falls back asleep. She is able to be woken up again in order to follow commands but she again falls asleep and cannot maintain consciousness. He has no neurologic deficits, has no airway obstruction or signs of airway compromise. - Will do screening workup to assess for lethargy/confusion. - Blood work reveals slight anemia to 9.7, platelet count 108, creatinine 3.01. - VBG revealed pH/CO2 of of 7.53/47 - Ammonia is negative, TSH negative. URI panel - CT head reveals no acute process but does show an old basal ganglia infarct - CXR reveals mild prominent pulmonary vascularity again seen suggesting pulmonary hypertension - Patient has been observed for about 2 hours commenting stable vital signs without any artificial support. Will admit the patient at this time for further workup and evaluation of her somnolence. Differential diagnosis: CVA, TIA, sepsis, hypercapnia, hyperammonemia, hypoxia, electrolyte disturbances, UTI, pneumonia, CHF Independent History obtained from: EMS Diagnostics interpreted by me: ECG: ECG independently interpreted by me with normal sinus rhythm, rate of 71, first-degree AV block, intraventricular conduction delay, normal QTc, no ST segment elevations consistent with STEMI criteria Cardiac Monitoring: An order was placed for continuous cardiac monitoring. The monitor shows a rate of 68 with sinus rhythm. Past Med/Surg History Problem List (Updated 05/29/25 @ 17:39 by Emily Fortune MD) Chronic hypotension Insulin-requiring or dependent type II diabetes mellitus (Acute) Volume overload Pancytopenia ESRD (end stage renal disease) on dialysis (Acute) Encephalopathy (Acute) Medical History (Updated 05/29/25 @ 17:39 by Emily Fortune MD) Ischemic colitis CHF (congestive heart failure) Essential hypertension Dyslipidemia Chronic anemia Metabolic dysfunction-associated steatohepatitis (MASH) CAD (coronary artery disease) Surgical History (Updated 05/29/25 @ 17:26 by Joyce Castro PA-C) History of tympanoplasty History of hernia repair History of hysterectomy Hx of heart artery stent Family History (Updated 05/29/25 @ 17:26 by Joyce Castro PA-C) Other Diabetes Heart disease Social History (Updated 05/29/25 @ 17:26 by Joyce Castro PA-C) Smoking Status: Former smoker Tobacco Type: Cigarettes Cigarettes Per Day: 3-4; Second Hand Exposure: Yes; Do You Dip or Chew Tobacco: No; Hx Alcohol Use: No Hx Substance Use: No Preferred Language: Congolese Communication Ability: Effective Bank Officer Required: No Beliefs That Will Affect Care: None Current Living Situation: Spouse and Family Current Living Situation Comment: and son Feels Safe at Home: Yes Assistive Devices: Walker and Wheelchair Allergies Allergies Allergy/AdvReac Type Severity Reaction Status Date / Time atorvastatin [From Lipitor] Allergy Unknown Verified 04/24/25 19:33 cephalexin [From Keflex] Allergy itchy/vomit Verified 04/24/25 19:33 ing Sulfa (Sulfonamide Allergy Unknown Verified 04/24/25 19:33 Antibiotics) Home Meds Home Medications Medication Instructions Recorded Confirmed aspirin 81 mg tablet,delayed 81 mg PO QAM 04/24/25 05/29/25 release cholecalciferol (vitamin D3) 25 25 mcg PO DAILY 04/24/25 05/29/25 mcg (1,000 unit) tablet (Vitamin D3) ferric citrate 210 mg iron tablet 1 tab PO TIDM 04/24/25 05/29/25 (Auryxia) gabapentin 300 mg capsule 300 mg PO QPM 04/24/25 05/29/25 insulin glargine 100 unit/mL (3 10 unit subcut HS 04/24/25 05/29/25 mL) subcutaneous pen (Lantus Solostar U-100 Insulin) lorazepam 0.5 mg tablet 0.25 mg PO BID PRN Anxiety 04/24/25 05/29/25 mesalamine 800 mg tablet,delayed 800 mg PO TID 04/24/25 05/29/25 release midodrine 10 mg tablet 20 mg PO UD 04/24/25 05/29/25 omeprazole 20 mg capsule,delayed 20 mg PO QAM 04/24/25 05/29/25 release ranolazine 500 mg tablet,extended 500 mg PO BID 04/24/25 05/29/25 release,12 hr rifaximin 550 mg tablet (Xifaxan) 550 mg PO BID 04/24/25 05/29/25 ropinirole 3 mg tablet 3 mg PO BID 04/24/25 05/29/25 sacubitril 24 mg-valsartan 26 mg 1 tab PO AMHS 04/24/25 05/29/25 tablet (Entresto) sertraline 100 mg tablet 100 mg PO HS 04/24/25 05/29/25 simvastatin 20 mg tablet 20 mg PO HS 04/24/25 05/29/25 vitamin B complex-vitamin C-folic 1 tab PO DAILY 04/24/25 05/29/25 acid 0.8 mg tablet Previous Rx's Medication Instructions Recorded linezolid 600 mg tablet 600 mg PO BID #10 tabs 04/27/25 Results & Data (ED) Vital Signs Vital Signs - 24 hr 05/29/25 14:52 05/29/25 14:58 05/29/25 15:23 Temperature 37.6 C H Temperature Source Oral Pulse Rate 72 73 Pulse Rate from SpO2 Sensor Pulse Rhythm Regular Respiratory Rate 20 Respiratory Effort / Characteristics Non-Labored Spontaneous Respiratory Depth Normal Respiratory Pattern Regular Blood Pressure 131/56 L Blood Pressure Mean 81 Blood Pressure Position Sitting Pulse Oximetry 97 97 Oxygen Delivery Method Room Air Room Air Sepsis Recent Fever Within 48 Hours No Sepsis New/Unexplained Change in Mental Status No Sepsis Action Taken by Nursing No Action Required 05/29/25 16:21 05/29/25 16:33 05/29/25 17:00 Temperature Temperature Source Pulse Rate 69 69 68 Pulse Rate from SpO2 Sensor 69 68 Pulse Rhythm Respiratory Rate 19 18 21 Respiratory Effort / Characteristics Respiratory Depth Respiratory Pattern Blood Pressure 150/72 H 141/58 H 129/62 Blood Pressure Mean 101 85 84 Blood Pressure Position Pulse Oximetry 97 95 95 Oxygen Delivery Method Sepsis Recent Fever Within 48 Hours Sepsis New/Unexplained Change in Mental Status Sepsis Action Taken by Nursing Laboratory Data 05/29/25 15:15 05/29/25 15:15 Lab Results 05/29/25 05/29/25 Range/Units 15:15 15:28 WBC 4.76 L (4.8-10.8) K/ul RBC 3.11 L (4.20-5.40) M/uL Hgb 9.7 L (12.0-16.0) g/dl Hct 29.9 L (37.0-47.0) % MCV 96.1 (80.0-100.0) fL MCH 31.2 (25.0-34.0) pg MCHC 32.4 (32.0-36.0) g/dL RDW Std Deviation 58.3 H (36.4-46.3) fL RDW Coeff of Danette 17.4 H (11.5-14.5) % Plt Count 108 L (130-400) K/uL MPV 11.3 (9.4-12.4) fL Immature Gran % (Auto) 0.4 % Neut % (Auto) 76.4 % Lymph % (Auto) 11.3 % [place] % (Auto) 10.5 % Eos % (Auto) 0.8 % Baso % (Auto) 0.6 % Neut # (Auto) 3.63 (1.40-6.50) K/uL Lymph # (Auto) 0.54 L (1.20-3.40) K/uL [place] # (Auto) 0.50 (0.11-0.59) K/uL Eos # (Auto) 0.04 (0.00-0.50) K/uL Baso # (Auto) 0.03 (0.00-0.20) K/uL Immature Gran # (Auto) 0.02 (0.01-0.20) K/uL VBG pH 7.53 H (7.36-7.41) VBG pCO2 47 (38-50) mmHg VBG pO2 45 mmHg VBG HCO3 39 mmol/L VBG O2 Saturation 79.6 % VBG Base Excess 14.6 mEq/L Sodium 138 (136-145) mmol/L Potassium 3.8 (3.5-5.1) mmol/L Chloride 98 (98-107) mmol/L Carbon Dioxide 31 (21-32) mmol/L Anion Gap 9 (3-11) BUN 21 (6-23) mg/dl Creatinine 3.01 H (0.6-1.2) mg/dl Est Cr Clr Drug Dosing Not Reportable eGFR 16.66 BUN/Creatinine Ratio 7.0 L (10-20) Glucose 135 H (70-99(Fasting)) mg/dl Lactate 1.8 (0.4-2.0) mmol/L Calcium 8.7 (8.6-10.3) mg/dl Total Bilirubin 1.4 H (0.2-1.0) mg/dl AST 27 (13-39) U/L ALT 13 (7-52) U/L Alkaline Phosphatase 126 H (34-104) U/L Ammonia 56.0 (18-72) umol/L Total Protein 7.5 (6.0-8.3) gm/dl Albumin 3.2 L (3.4-5.0) gm/dl Globulin 4.3 H (2.5-4.0) gm/dl Albumin/Globulin Ratio 0.7 L (0.9-2) TSH 1.350 (0.300-4.500) uIu/ml Adenovirus (PCR) Not Detected (NotDetected) B. pertussis DNA (PCR) Not Detected (NotDetected) B.parapertussis DNA PCR Not Detected (NotDetected) C. pneumoniae DNA (PCR) Not Detected (NotDetected) Coronavirus OC43 (PCR) Not Detected (NotDetected) Coronavirus HKU1 (PCR) Not Detected (NotDetected) Coronavirus 229E (PCR) Not Detected (NotDetected) SARS-CoV-2 (PCR) Not Detected (NotDetected) Coronavirus NL63 (PCR) Not Detected (NotDetected) Human Metapneumovir PCR Not Detected (NotDetected) Influenza Type A (PCR) Not Detected (NotDetected) Influenza Type B (PCR) Not Detected (NotDetected) M. pneumoniae (PCR) Not Detected (NotDetected) Parainfluenza 1 (PCR) Not Detected (NotDetected) Parainfluenza 2 (PCR) Not Detected (NotDetected) Parainfluenza 3 (PCR) Not Detected (NotDetected) Parainfluenza 4 (PCR) Not Detected (NotDetected) RSV (PCR) Not Detected (NotDetected) Entero/Rhino (PCR) Not Detected (NotDetected) Imaging Data Radiologist's Impression: Chest X-Ray 05/29/25 14:58 Chest radiograph, one view History: Weakness Comparison: 04/24/2025 Findings: Single AP view of the chest performed. No focal consolidation or pleural effusion. No pneumothorax. The cardiomediastinal silhouette is enlarged. Mildly prominent pulmonary vascularity. No evidence for lymphadenopathy. No visualized bony or soft tissue abnormality. Impression: Mildly prominent pulmonary vascularity again seen, suggesting pulmonary venous hypertension. The cardiac silhouette appears enlarged. Electronically signed by Akin Ornelas 05-29-2025 4:[address] 05/29/25 15:14 Clinical History: Lethargy and confusion. Technique: Axial computed tomography images were obtained of the brain from the vertex to the skull base without intravenous contrast. Findings: There is no sign of intracranial hemorrhage. There is an old infarct of the right caudate nucleus. No midline shift or other form of herniation is identified. There is no hydrocephalus. No obvious mass lesion is seen on this noncontrast examination. The visualized portions of the orbits and paranasal sinuses appear unremarkable. 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 Discharge Plan Visit Data Chief Complaint: Lethargic Stated Complaint: LETHARGIC ED Provider: Emily Fortune Discharge Problem: Encephalopathy, Insulin-requiring or dependent type II diabetes mellitus, ESRD (end stage renal disease) on dialysis Patient Disposition: Admitted As Inpatient Condition: Fair Forms Stand Alone Forms: My [facility] myDocket Prescriptions Prescriptions: No Action ropinirole 3 mg tablet 3 mg PO BID mesalamine 800 mg tablet,delayed release (DR/EC) 800 mg PO TID gabapentin 300 mg capsule 300 mg PO QPM lorazepam 0.5 mg tablet 0.25 mg PO BID PRN (Reason: Anxiety) sertraline 100 mg tablet 100 mg PO HS simvastatin 20 mg tablet 20 mg PO HS omeprazole 20 mg capsule,delayed release(DR/EC) 20 mg PO QAM Xifaxan 550 mg tablet 550 mg PO BID aspirin 81 mg Tablet,Delayed Release (Dr/Ec) 81 mg PO QAM cholecalciferol (vitamin D3) [Vitamin D3] 25 mcg (1,000 unit) Tablet 25 mcg PO DAILY insulin glargine [Lantus Solostar U-100 Insulin] 100 unit/mL (3 mL) Insulin Pen 10 unit SUBCUT HS ferric citrate [Auryxia] 210 mg iron tablet 1 tab PO TIDM sacubitril-valsartan [Entresto] 24-26 mg tablet 1 tab PO AMHS Rx Instructions: hold before HD for low BP B complex-vitamin C-folic acid 0.8 mg Tablet 1 tab PO DAILY ranolazine 500 mg tablet extended release 12 hr 500 mg PO BID midodrine 10 mg tablet 20 mg PO UD Rx Instructions: 20 mg before and 20 mg during tx (M/W/F) 20 mg bid on non HD days linezolid 600 mg Tablet 600 mg PO BID Qty: 10 0RF Referrals Referrals: PCP,NO [Primary Care Provider] -
--- NOTE | 2025-05-29 18:12 | Electrocardiogram Report ---
Test Reason : Blood Pressure : */* mmHG Vent. Rate : 71 BPM Atrial Rate : 71 BPM P-R Int : 258 ms QRS Dur : 128 ms QT Int : 472 ms P-R-T Axes : 57 -27 64 degrees QTcB Int : 512 ms Sinus rhythm with 1st degree A-V block Non-specific intra-ventricular conduction block Minimal voltage criteria for LVH, may be normal variant Abnormal ECG When compared with ECG of 24-Apr-2025 17:25, Nonspecific T wave abnormality, worse in Lateral leads Confirmed by Akin Skinner ([id number]) on 05/29/2025 6:12:35 PM Referred By: Confirmed By: Akin Skinner
[2025-05-29] MEDS ORDERED: GLUCOSE 10 TAB/TUBE PO PRN (21:03)
[2025-05-29] MEDS ORDERED: CARBOHYDRATES FOR HYPOGLYCEMIA PO PRN (21:03)
[2025-05-29] MEDS ORDERED: GLUCAGON FOR INJ 1 MG VIAL SQ PRN (21:03)
[2025-05-29] MEDS ORDERED: DEXTROSE 50% 50 ML SYRINGE IV PRN (21:03)
[2025-05-29] MEDS ORDERED: GLUCOSE 40% GEL 15 GM TUBE PO PRN (21:03)
[2025-05-29] MEDS: INSULIN ASPART PER UNIT CHARGE SC SCH (21:51)
[2025-05-30] MEDS: PANTOprazole 40 MG/10 ML SYR IV SCH (07:38)
[2025-05-30 09:11] LABS: Hematocrit (blood only) 28.4 % (37.0-47.0); Hemoglobin 9.0 g/dl (12.0-16.0); Immature Granulocytes # (auto) 0.02 K/uL (0.01-0.20); Immature Granulocytes % (auto) 0.6 %; Mean Corpuscular Hemoglobin 30.9 pg (25.0-34.0); Mean Corpuscular Volume 97.6 fL (80.0-100.0); Platelet Count 91 K/uL (130-400); RDW Standard Deviation 61.1 fL (36.4-46.3); Red Blood Count 2.91 M/uL (4.20-5.40); White Blood Count 3.33 K/ul (4.8-10.8)
[2025-05-30 09:36] LABS: Alanine Aminotransferase 10.0 U/L (7-52); Albumin Level 2.7 gm/dl (3.4-5.0); Alkaline Phosphatase 104.0 U/L (34-104); Anion Gap 10.0 (3-11); Bilirubin,Total 1.3 mg/dl (0.2-1.0); Blood Urea Nitrogen 31.0 mg/dl (6-23); Calcium 8.4 mg/dl (8.6-10.3); Carbon Dioxide 33.0 mmol/L (21-32); Chloride 99.0 mmol/L (98-107); Creatinine Clr Calc Pharmacy 16.4 ml/min; Glucose 104.0 mg/dl (70-99(Fasting)); Potassium 4.1 mmol/L (3.5-5.1); Sodium 142.0 mmol/L (136-145); Total Protein 6.7 gm/dl (6.0-8.3)
[2025-05-30 09:59] LABS: INR 1.2 (0.9-1.1); Prothrombin Time 12.3 Seconds (9.0-12.0)
--- NOTE | 2025-05-30 11:01 | Nephrology Consultation ---
Date of Consultation May 30, 2025 Assessment & Plan (1) ESRD (end stage renal disease) on dialysis: on MWF HD at [facility] via [facility]; missed 05/27 treatment. will do 2 hrs today and give midodrine start of tx (pharmacy aware); minimal UF as she does not look overloaded on exam to 500 mL -next tx tomorrow per routine -will give routine OP heparin on tx >> 2K bolus and 1K units hourly >mild thrombocytopenia noted (2) Chronic hypotension: BP acceptable today; has not required midodrine; no e/o volume overload >> midodrine w/ HD (3) Encephalopathy: ongoing > per primary service; unclear if she actually had dental work on 05/27 but updated hospitalist to review w/ family. History of Present Illness Reason for Consultation: ESRD on HD Requesting Physician: Dr Eric Attending Physician: Wayne Grey DO History of Present Illness 65 y/o F whom I'm asked to see for ESRD on HD was admitted yesterday evening for encephalopathy deemed multifactorial and in the setting of missing HD and hyperammonemia. PMH includes MWF HD via [facility] w/ Dr Gomes, CAD s/p stent, HF, NAFLD Cirrhosis, labile hypotension (on midodrine intermittently), IRDM2, GERD, h/o ischemic colitis, h/o basal ganglia stroke (on imaging), past/recent BLE wounds. Admitted here about one month back for encephalopathy, UTI. Sent here yesterday after HD b/c noted to be more lethargic/confused/difficult to arouse post treatment. Pt had been feeling unwell for a few days per report. She missed her dialysis treatment on 05/27 because of feeling poorly per report though she tells me it was b/c she had a dental appt >> for denture fitting/ denies extraction or cleaning. She denies sob, uncontrolled musculoskeletal pain, n/v/d. stable chronic cough. ongoing fatigue. appetite good. no new/worrisome voiding sx. Allergies Allergy/AdvReac Type Severity Reaction Status Date / Time atorvastatin [From Lipitor] Allergy Unknown Verified 04/24/25 19:33 cephalexin [From Keflex] Allergy itchy/vomit Verified 04/24/25 19:33 ing Sulfa (Sulfonamide Allergy Unknown Verified 04/24/25 19:33 Antibiotics) Home Medications Medication Instructions Recorded Confirmed Type aspirin 81 mg tablet,delayed 81 mg PO QAM 04/24/25 05/29/25 History release cholecalciferol (vitamin D3) 25 25 mcg PO DAILY 04/24/25 05/29/25 History mcg (1,000 unit) tablet (Vitamin D3) ferric citrate 210 mg iron tablet 1 tab PO TIDM 04/24/25 05/29/25 History (Auryxia) gabapentin 300 mg capsule 300 mg PO QPM 04/24/25 05/29/25 History insulin glargine 100 unit/mL (3 10 unit subcut HS 04/24/25 05/29/25 History mL) subcutaneous pen (Lantus Solostar U-100 Insulin) lorazepam 0.5 mg tablet 0.25 mg PO BID PRN Anxiety 04/24/25 05/29/25 History mesalamine 800 mg tablet,delayed 800 mg PO TID 04/24/25 05/29/25 History release midodrine 10 mg tablet 20 mg PO UD 04/24/25 05/29/25 History omeprazole 20 mg capsule,delayed 20 mg PO QAM 04/24/25 05/29/25 History release ranolazine 500 mg tablet,extended 500 mg PO BID 04/24/25 05/29/25 History release,12 hr rifaximin 550 mg tablet (Xifaxan) 550 mg PO BID 04/24/25 05/29/25 History ropinirole 3 mg tablet 3 mg PO BID 04/24/25 05/29/25 History sacubitril 24 mg-valsartan 26 mg 1 tab PO AMHS 04/24/25 05/29/25 History tablet (Entresto) sertraline 100 mg tablet 100 mg PO HS 04/24/25 05/29/25 History simvastatin 20 mg tablet 20 mg PO HS 04/24/25 05/29/25 History vitamin B complex-vitamin C-folic 1 tab PO DAILY 04/24/25 05/29/25 History acid 0.8 mg tablet Patient History Medical History Ischemic colitis CHF (congestive heart failure) Essential hypertension Dyslipidemia Chronic anemia Metabolic dysfunction-associated steatohepatitis (MASH) CAD (coronary artery disease) Surgical History History of tympanoplasty History of hernia repair History of hysterectomy Hx of heart artery stent Family History Other Diabetes Heart disease Social History Smoking Status: Current every day smoker Tobacco Type: Cigarettes Cigarettes Per Day: "a few"; Second Hand Exposure: Yes; Do You Dip or Chew Tobacco: No; Hx Alcohol Use: No Hx Substance Use: No Preferred Language: Surinamese Communication Ability: Effective Analysis Engineer Required: No Beliefs That Will Affect Care: None Current Living Situation: Spouse Current Living Situation Comment: and son Feels Safe at Home: Yes Safety Concerns: Feels Safe At This Time Assistive Devices: Denture - Upper, Denture - Lower, Glasses and Walker Review of Systems 2 Review of Systems: All systems reviewed & are unremarkable except as noted in HPI & below and Unobtainable due to cognitive status (limited by pt mental status) Physical Exam 2 Constitutional: well developed, well nourished, + obese, + altered mental status, + frail appearing and cooperative; no acute distress Eyes: EOM intact bilaterally ENMT: Mouth: + dry oral mucous membranes Respiratory: normal respiratory effort Auscultation: + diminished lung sounds Cardiovascular: Rate/Rhythm: regular rate and regular rhythm Extremities: + edema (trace -1+; tender to moderate palpation) and + AV fistula Gastrointestinal (Abdomen): Inspection/Auscultation: normal bowel sounds P ercussion/Palpation: abdomen soft; abdomen nontender Musculoskeletal: Extremities: strength 5/5 throughout Skin: no rashes, warm and dry Neurologic: ribeiro, fluent speech, no tremor Results & Data Vital Signs (Past 12 Hours) Vital Signs Temp Pulse Pulse Resp BP Pulse Ox O2 Del Method 05/30/25 07:55 37.0 C 62 16 111/46 L 92 Room Air 05/30/25 07:13 63 05/30/25 04:13 36.9 C 64 20 93/57 L 97 Room Air 05/30/25 00:41 36.5 C 62 20 113/67 97 Room Air Laboratory Results 05/30/25 08:39 05/30/25 08:39 Diagnostic Findings Chest x-ray consistent with pulmonary venous hypertension Head CT without acute intracranial process but notable for old basal ganglia infarct (3) Encephalopathy Encephalopathy type: unspecified encephalopathy Qualified Code(s): G93.40 - Encephalopathy, unspecified
[2025-05-30] MEDS ORDERED: SODIUM CHLORIDE 0.9% 1,000 ML IV PRN (11:27)
[2025-05-30] MEDS: NEPHROCAPS PO SCH (12:18)
[2025-05-30] MEDS: MIDODRINE HCL 10 MG TAB PO SCH (12:18)
[2025-05-30] MEDS: ASPIRIN 81 MG ECTAB PO SCH (13:24)
[2025-05-30] MEDS: CHOLECALCIFEROL 25 MCG (1000 UNITS) TAB PO SCH (13:24)
[2025-05-30] MEDS: LACTULOSE SYRUP 20 GM/30 ML UDC PO SCH (13:25)
[2025-05-30] MEDS: MESALAMINE 800 MG TABCR PO SCH (13:25)
--- NOTE | 2025-05-30 13:38 | Hospitalist Progress Note ---
<Statement entered by Wayne Grey, DO - 05/30/25 14:10> Clinically improved today. AOx3. answering questions appropriately. Metabolic encephalopathy multifactorial due to hepatic encephalopathy/ Cirrhosis, missed HD and numerous sedating medications. She had asterixis on exam. she is only having one BM per day and will start lactulose for 2-3 BM/day. Gabapentin and ativan dose decreased. Appreciate nephrology input for HD. Date of Service May 30, 2025 Assessment & Plan (1) Encephalopathy: (2) ESRD (end stage renal disease) on dialysis: (3) Insulin-requiring or dependent type II diabetes mellitus: (4) Cirrhosis: (5) Chronic hypotension: Plan 65 year old female with PMH significant for ESRD on HD (M/W/F), CAD s/p stent, CHF, hypotension (on midodrine), type 2 diabetes with polyneuropathy, MASH Cirrhosis, GERD, chronic anemia, history of ischemic colitis, history of basal ganglia stroke, depression, RLS who presented to the ED on 05/29/2025 with lethargy and confusion after dialysis. 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 Continue Xifaxan Start lactulose as above Chronic anemia Hemoglobin stable around 9 Continue ferrous citrate Monitor CBC Hypotension Continue midodrine per home instructions Type 2 diabetes A1C 6.1 in Apr 2025 Continue home lantus HS BSG ACHS and SSI while inpatient GERD Continue PPI CAD Continue baby aspirin, statin, and ranolazine HF Continue Entresto RLS Continue ropinirole History of ischemic colitis Continue mesalamine Depression Continue sertraline DVT Prophylaxis: IV heparin with HD per Nephro Code Status: FULL CODE PCP: Sina Pena ([facility]) Disposition: pending PT/OT evals Patient seen in collaboration with Dr. Grey. Please see addendum. I spent a total of 60 minutes coordinating, documenting and providing care for this patient excluding time spent in the performance of separately billed services or time spent by another provider/QHP. Admission and Anticipated Discharge Date Admission Date: May 30, 2025 Subjective Patient seen sitting up eating breakfast Does not recall her episode of confusion after dialysis yesterday Denies chest pain, SOB, abdominal pain, N/V/D Nurse reports patient was incontinent of urine this morning Review of Systems Review of Systems: All systems reviewed & are unremarkable except as noted in HPI & below Physical Exam Physical Exam: General/Psych: unkempt, sitting up in bed, NAD, conversing easily Head: normocephalic, atraumatic Eyes: normal inspection, PERRL, conjunctivae pink ENT: external ear and nose normal, oropharynx normal Neck: normal visual inspection, trachea midline Respiratory: normal respiratory effort, lungs clear to auscultation, no wheeze/rales/rhonchi, no accessory muscle use Cardiovascular: regular rate and rhythm, no murmur/rub/gallop Extremities: no cyanosis or clubbing, normal peripheral pulses, no BLE edema, LUE fistula present +thrill Abdomen/GI: normal bowel sounds, soft, nontender, no hepatosplenomegaly Neurologic/MSK: A+Ox3, motor strength 5/5, moves all extremities Skin: no rashes, normal color, warm and dry Results & Data Results & Data Vital Signs (Past 12 Hours) Vital Signs Temp Pulse Pulse Resp BP Pulse Ox O2 Del Method 05/30/25 12:32 37.2 C 68 18 96/44 L 92 Room Air 05/30/25 07:55 37.0 C 62 16 111/46 L 92 Room Air 05/30/25 07:13 63 05/30/25 04:13 36.9 C 64 20 93/57 L 97 Room Air Laboratory Results Short CBC 05/29/25 05/30/25 Range/Units 15:15 08:39 WBC 4.76 L 3.33 L (4.8-10.8) K/ul Hgb 9.7 L 9.0 L (12.0-16.0) g/dl Hct 29.9 L 28.4 L (37.0-47.0) % Plt Count 108 L 91 L (130-400) K/uL BMP 05/29/25 05/30/25 15:15 08:39 Sodium 138 142 Potassium 3.8 4.1 Chloride 98 99 Carbon Dioxide 31 33 H BUN 21 31 H Creatinine 3.01 H 4.36 H D Glucose 135 H 104 H Calcium 8.7 8.4 L Liver Function 05/29/25 05/30/25 Range/Units 15:15 08:39 Total Bilirubin 1.4 H 1.3 H (0.2-1.0) mg/dl Direct Bilirubin 0.4 H (0-0.2) mg/dl AST 27 23 (13-39) U/L ALT 13 10 (7-52) U/L Alkaline Phosphatase 126 H 104 (34-104) U/L Albumin 3.2 L 2.7 L (3.4-5.0) gm/dl I have independently reviewed and interpreted patient's labs including CBC, CMP, PTT, PT/INR, ammonia Medications Administered Current Inpatient Medications Aspirin (Aspirin 81 Mg Ectab) 81 mg PO QAM SWATI Stop: 06/29/25 10:59 Last Admin: 05/30/25 13:24 Dose: 81 mg Dextrose (Dextrose 50% 50 Ml Syringe) 25 - 50 ml IV UD PRN; Protocol PRN Reason: Hypoglycemia Protocol Stop: 06/28/25 21:02 Gabapentin (Gabapentin 100 Mg Cap) 200 mg PO QPM SWATI Stop: 06/29/25 20:59 Glucagon (Glucagon For Inj 1 Mg Vial) 1 mg SQ UD PRN; Protocol PRN Reason: Hypoglycemia Protocol Stop: 06/28/25 21:02 Glucose (Glucose 40% Gel 15 Gm Tube) 15 - 30 gm PO UD PRN; Protocol PRN Reason: Hypoglycemia Protocol Stop: 06/28/25 21:02 Glucose (Glucose 10 Tab/Tube) 4 - 8 tab PO UD PRN; Protocol PRN Reason: Hypoglycemia Protocol Stop: 06/28/25 21:02 Heparin Sodium (Porcine) (Heparin Sod (Porcine) 1000 Unit/Ml) 1,000 units IV Q1H SWATI Stop: 05/30/25 13:31 Sodium Chloride (Nss) 1,000 mls @ 0 mls/hr IV .Q0M PRN PRN Reason: For Hemodialysis Use ONLY Stop: 05/30/25 17:26 Insulin Aspart (Insulin Aspart Per Unit Charge) 0 units SC ACHS SWATI Stop: 06/28/25 21:02 Last Admin: 05/30/25 13:08 Dose: 8 units Insulin Glargine (Lantus Per Unit Charge) 10 units SQ HS SWATI Stop: 06/29/25 20:59 Lactulose (Lactulose Syrup 20 Gm/30 Ml Udc) 20 gm PO BID SWATI Stop: 06/29/25 11:29 Last Admin: 05/30/25 13:25 Dose: 20 gm Mesalamine (Mesalamine 800 Mg Tabcr) 800 mg PO TID SWATI Stop: 06/29/25 13:59 Last Admin: 05/30/25 13:25 Dose: 800 mg Midodrine (Midodrine Hcl 10 Mg Tab) 20 mg PO BID@0800,1600 SWATI Stop: 06/29/25 10:59 Last Admin: 05/30/25 12:18 Dose: 20 mg Miscellaneous (Carbohydrates For Hypoglycemia ) 15 - 30 gm PO UD PRN PRN Reason: Hypoglycemia Protocol Stop: 06/28/25 21:02 Miscellaneous (Ferric Citrate [Auryxia] 210 Mg Iron - Order Awaiting Action) 1 each N/A QS SWATI Stop: 06/29/25 15:59 Pantoprazole Sodium (Pantoprazole 40 Mg Tab) 40 mg PO QAM SWATI Stop: 06/30/25 08:59 Ranolazine (Ranolazine 500 Mg Er Tab) 500 mg PO BID SWATI Stop: 06/29/25 20:59 Rifaximin (Rifaximin 550 Mg Tablet) 550 mg PO BID SWATI Stop: 06/29/25 20:59 Ropinirole HCl (Ropinirole Hcl 1 Mg Tablet) 3 mg PO BID SWATI Stop: 06/29/25 20:59 Sacubitril/Valsartan (Valsartan/Sacubitril 26/24mg Tab) 1 tab PO AMHS SWATI Stop: 06/29/25 20:59 Sertraline HCl (Sertraline Hcl 100 Mg Tablet) 100 mg PO HS SWATI Stop: 06/29/25 20:59 Simvastatin (Simvastatin 20 Mg Tab) 20 mg PO HS SWATI Stop: 06/29/25 20:59 Vitamin B Complex/Folic Acid (Nephrocaps) 1 cap PO DAILY SWATI Stop: 06/29/25 10:59 Last Admin: 05/30/25 12:18 Dose: 1 cap Vitamin D (Cholecalciferol 25 Mcg (1000 Units) Tab) 25 mcg PO DAILY SWATI Stop: 06/29/25 10:59 Last Admin: 10/30/25 13:24 Dose: 25 mcg (1) Encephalopathy Encephalopathy type: unspecified encephalopathy Qualified Code(s): G93.40 - Encephalopathy, unspecified (4) Cirrhosis Hepatic cirrhosis type: other cirrhosis Qualified Code(s): K74.69 - Other cirrhosis of liver
[2025-05-30] MEDS: EPOETIN ALFA 10,000 UNITS/ML VIAL IV ONE (17:36)
[2025-05-30] MEDS: HEPARIN SOD (PORCINE) 1000 UNIT/ML IV SCH (18:37)
[2025-05-30] MEDS: HEPARIN SOD (PORCINE) 1000 UNIT/ML IV ONE (18:37)
[2025-05-30] MEDS: GABAPENTIN 100 MG CAP PO SCH (20:08)
[2025-05-30] MEDS: SERTRALINE HCL 100 MG TABLET PO SCH (20:08)
[2025-05-30] MEDS: RANOLAZINE 500 MG ER TAB PO SCH (20:09)
[2025-05-30] MEDS: SIMVASTATIN 20 MG TAB PO SCH (20:09)
[2025-05-30] MEDS: VALSARTAN/SACUBITRIL 26/24MG TAB PO SCH (20:09)
[2025-05-30] MEDS: LANTUS PER UNIT CHARGE SQ SCH (20:38)
[2025-05-30] MEDS ORDERED: GABAPENTIN 300 MG CAP PO SCH (21:00)
[2025-05-31 05:58] LABS: Hematocrit (blood only) 27.1 % (37.0-47.0); Hemoglobin 8.9 g/dl (12.0-16.0); Mean Corpuscular Hemoglobin 32.0 pg (25.0-34.0); Mean Corpuscular Volume 97.5 fL (80.0-100.0); Platelet Count 77 K/uL (130-400); RDW Standard Deviation 61.4 fL (36.4-46.3); Red Blood Count 2.78 M/uL (4.20-5.40); White Blood Count 2.80 K/ul (4.8-10.8)
[2025-05-31 06:27] LABS: Alanine Aminotransferase 10.0 U/L (7-52); Albumin Globulin Ratio 0.8 (0.9-2); Albumin Level 3.0 gm/dl (3.4-5.0); Alkaline Phosphatase 102.0 U/L (34-104); Anion Gap 10.0 (3-11); Bilirubin,Total 1.2 mg/dl (0.2-1.0); Blood Urea Nitrogen 34.0 mg/dl (6-23); Calcium 8.3 mg/dl (8.6-10.3); Carbon Dioxide 30.0 mmol/L (21-32); Chloride 99.0 mmol/L (98-107); Creatinine Clr Calc Pharmacy 15.2 ml/min; Globulin 3.7 gm/dl (2.5-4.0); Glucose 96.0 mg/dl (70-99(Fasting)); Potassium 3.9 mmol/L (3.5-5.1); Sodium 139.0 mmol/L (136-145); Total Protein 6.7 gm/dl (6.0-8.3)
[2025-05-31] MEDS ORDERED: SODIUM CHLORIDE 0.9% 1,000 ML IV PRN (07:18)
[2025-05-31 08:51] VITALS: RESP 18
[2025-05-31] MEDS: LIDOCAINE 4% CREAM 15 GM TUBE EXT PRN (09:00)
[2025-05-31] MEDS: HEPARIN SOD (PORCINE) 1000 UNIT/ML IV ONE (10:20)
[2025-05-31] MEDS: HEPARIN SOD (PORCINE) 1000 UNIT/ML IV SCH (11:49)
[2025-05-31] MEDS: EPOETIN ALFA 20,000 UNITS/ML VIAL IV ONE (12:21)
[2025-05-31 14:25] VITALS: TEMP 97.3; O2SAT 95
[2025-05-31 15:36] VITALS: BP 113/67; PULSE 64
--- NOTE | 2025-05-31 15:37 | Discharge Summary ---
<Statement entered by Wayne Grey, - 06/01/25 13:53> patient seen and examined on day of discharge She is feeling well and wishes to be sent home She adamantly refused lactulose. benefits were once again discussed with patient Discharge Summary Date of Service May 31, 2025 Principal Dx & Hospital Course #1 = Principal Diagnosis (1) Encephalopathy: (2) ESRD (end stage renal disease) on dialysis: (3) Insulin-requiring or dependent type II diabetes mellitus: (4) Cirrhosis: (5) Chronic hypotension: Plan 65 year old female with PMH significant for ESRD on HD (M/W/F), CAD s/p stent, CHF, hypotension (on midodrine), type 2 diabetes with polyneuropathy, MASH Cirrhosis, GERD, chronic anemia, history of ischemic colitis, history of basal ganglia stroke, depression, RLS who presented to the ED on 05/29/2025 with lethargy and confusion after dialysis. 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 Grey. Please see addendum. Notes For Next Care Provider 65 year old female with significant PMH who was admitted at [facility] from 05/29- 05/31/2025 for lethargy and confusion after dialysis. Symptoms resolved quickly and patient discharged to home to resume HD schedule outpatient. Recommend lactulose to prevent hepatic encephalopathy and decreased use of ativan outpatient. Medication Changes From Visit Lactulose 15-30mL 1-2 times per day to achieve 2 bowel movements per day (you have a supply of this medication at home) Limit use of ativan Admission HPI Per Admitting Provider This is a 65 y/o female with ESRD on HD (M/W/F), CAD s/p stent, CHF, hypotension (on midodrine), IRDM2, MASH Cirrhosis, GERD, chronic anemia, and other history as outlined below who was sent to the ED today from dialysis after she became more lethargic and confused after today's treatment. History is essentially unobtainable from patient so history obtained from review of medical records and from family. Per family, pt has been complaining of "not feeling well" for the last few days. She missed her dialysis treatment on Tuesday because of feeling poorly but did go today. The patient reportedly completed her treatment but was then noted to be lethargic, difficult to arouse so sent to the ED via EMS. Family notes that she has been more "shaky" over the last few days, one episode of vomiting but no diarrhea that they are aware of. No change in chronic cough, no congestion or rhinorrhea. Appetite has been at baseline. She has seemed more tired than usual. They report that she has had similar symptoms in the past with UTIs and when her ammonia level is elevated. Admission Exam Per Admitting Provider General: lethargic, arouses to tactile stimuli but quickly falls back asleep, occasionally answers yes/no questions HEENT: pupils equal and reactive to light, moist mucus membranes Neck: supple, trachea midline Heart: RRR Lungs: Clear to auscultation on the anterior but diminished air movement Abdomen: soft, +BS Extremities: chronic stasis changes bilateral LE, no significant pedal edema Discharge Exam General/Psych: unkempt, sitting up in bed, NAD, conversing easily Head: normocephalic, atraumatic Eyes: normal inspection, PERRL, conjunctivae pink ENT: external ear and nose normal, oropharynx normal Neck: normal visual inspection, trachea midline Respiratory: normal respiratory effort, lungs clear to auscultation, no wheeze/rales/rhonchi, no accessory muscle use Cardiovascular: regular rate and rhythm, no murmur/rub/gallop Extremities: no cyanosis or clubbing, normal peripheral pulses, no BLE edema, LUE fistula present +thrill Abdomen/GI: normal bowel sounds, soft, nontender, no hepatosplenomegaly Neurologic/MSK: A+Ox3, motor strength 5/5, moves all extremities Skin: no rashes, normal color, warm and dry Updated Medication List Medication Instructions Recorded Confirmed Type aspirin 81 mg tablet,delayed 81 mg PO QAM 04/24/25 05/29/25 History release cholecalciferol (vitamin D3) 25 25 mcg PO DAILY 04/24/25 05/29/25 History mcg (1,000 unit) tablet (Vitamin D3) ferric citrate 210 mg iron tablet 1 tab PO TIDM 04/24/25 05/29/25 History (Auryxia) gabapentin 300 mg capsule 300 mg PO QPM 04/24/25 05/29/25 History insulin glargine 100 unit/mL (3 10 unit subcut HS 04/24/25 05/29/25 History mL) subcutaneous pen (Lantus Solostar U-100 Insulin) lorazepam 0.5 mg tablet 0.25 mg PO BID PRN Anxiety 04/24/25 05/29/25 History mesalamine 800 mg tablet,delayed 800 mg PO TID 04/24/25 05/29/25 History release midodrine 10 mg tablet 20 mg PO UD 04/24/25 05/29/25 History omeprazole 20 mg capsule,delayed 20 mg PO QAM 04/24/25 05/29/25 History release ranolazine 500 mg tablet,extended 500 mg PO BID 04/24/25 05/29/25 History release,12 hr rifaximin 550 mg tablet (Xifaxan) 550 mg PO BID 04/24/25 05/29/25 History ropinirole 3 mg tablet 3 mg PO BID 04/24/25 05/29/25 History sacubitril 24 mg-valsartan 26 mg 1 tab PO AMHS 04/24/25 05/29/25 History tablet (Entresto) sertraline 100 mg tablet 100 mg PO HS 04/24/25 05/29/25 History simvastatin 20 mg tablet 20 mg PO HS 04/24/25 05/29/25 History vitamin B complex-vitamin C-folic 1 tab PO DAILY 04/24/25 05/29/25 History acid 0.8 mg tablet Hospital Stay Data Consultations 05/29/25 19:52 Consult Nephrology Routine Diagnostic Imagining Performed Chest X-Ray 05/29/25 14:58 Chest radiograph, one view History: Weakness Comparison: 04/24/2025 Findings: Single AP view of the chest performed. No focal consolidation or pleural effusion. No pneumothorax. The cardiomediastinal silhouette is enlarged. Mildly prominent pulmonary vascularity. No evidence for lymphadenopathy. No visualized bony or soft tissue abnormality. Impression: Mildly prominent pulmonary vascularity again seen, suggesting pulmonary venous hypertension. The cardiac silhouette appears enlarged. Electronically signed by Akin Ornelas 05-29-2025 4:[address] 05/29/25 15:14 Clinical History: Lethargy and confusion. Technique: Axial computed tomography images were obtained of the brain from the vertex to the skull base without intravenous contrast. Findings: There is no sign of intracranial hemorrhage. There is an old infarct of the right caudate nucleus. No midline shift or other form of herniation is identified. There is no hydrocephalus. No obvious mass lesion is seen on this noncontrast examination. The visualized portions of the orbits and paranasal sinuses appear unremarkable. 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 Pending Results Patient Have Any Pending Studies at Discharge: No Discharge Instructions Given to Patient (Per Discharging Provider) You presented to the hospital after dialysis because you were lethargic and confused after treatment. You had a head CT which was normal and your labs were not remarkable for any signs of infection. Your confusion resolved and you feel ready to go home. You may have been confused from missing dialysis earlier in the week or slight build up of ammonia in your liver because of your cirrhosis. We would recommend that you take lactulose to achieve having 2 bowel movements per day. We would also recommend limiting your use of ativan as this can cause confusion. MEDICATION CHANGES: Lactulose 15-30mL 1-2 times per day to achieve 2 bowel movements per day (you have a supply of this medication at home) Limit use of ativan SUMMARY OF TEST RESULTS: See above PENDING TEST RESULTS: None RECOMMENDATIONS FOR FOLLOW-UP: Please follow up with your PCP after being in the hospital Please continue your dialysis as scheduled OTHER INSTRUCTIONS: Seek medical attention if you have: * temperature above 101 * chest pain or trouble breathing * abdominal pain, nausea, vomiting * diarrhea, dark stools or bloody stools * any unanswered questions or concerns Call 911 if symptoms are severe. It has been a pleasure taking care of you. Please take care of yourself. If you have any questions regarding your recent hospitalization please contact [facility] and request Lennie Reyesist @ [phone]. Total Time Total Time Spent Total Time Spent (In Minutes): I spent a total of 35 minutes coordinating, documenting and providing care for this patient excluding time spent in the performance of separately billed services or time spent by another provider/QHP.
== END 2025-05-31 17:21 | disposition home or self-care (01) | DRG 91 ==
LOC: ED 14:45 → 2N 17:31 → INTOOBSV 17:31 → SUATTDRO 17:31 → 2N 20:37

== ENCOUNTER 2025-06-17 14:47 | Inpatient (IN) ==
--- NOTE | 2025-06-17 15:18 | Emergency Department Note ---
Impression & Plan Acute encephalopathy, ESRD on dialysis, Pancytopenia ED Provider Note NAME: RICCI ESCOBAR AGE: 65 SEX: F : 1960 ARRIVES VIA: Ambulance INFORMANT: Patient, EMS ED PROVIDER(S): Mainor Londono DO CHIEF COMPLAINT: altered mental status HPI: This is a 65-year-old female with the PMHx of ESRD on hemodialysis Tuesday, MASH cirrhosis, insulin-dependent type 2 diabetes, RLS, CAD s/p PCI, pancytopenia and multiple evaluations for encephalopathy in the past presenting to [facility] for further evaluation of AMS. Patient is accompanied by EMS who provide additional history. EMS provides the majority of the history as the patient is severely altered at this time. Review of systems unable to be obtained from the patient. Patient does answer yes and no questions and she is able to tell me her name. EMS reports that they were called to dialysis center. She gets dialysis on Mondays, Wednesdays and Fridays. She had a session today where she was fine prior to the dialysis session. They report that they removed 2.7 L. She has been mildly hypertensive but otherwise hemodynamically stable. EMS reports no treatments were given. She was transported without complication but remains severely encephalopathic. ADDITIONAL HISTORY OBTAINED: Per HPI Chronic Medical/Social Conditions Affecting Care: Per HPI PAST MEDICAL HISTORY: See Below PAST SURGICAL HISTORY: See Below FAMILY HISTORY: See Below SOCIAL HISTORY: See Below HOME MEDICATIONS: See Below ALLERGIES: See Below VITALS: See Below PHYSICAL EXAMINATION: GENERAL: Sitting up in bed, alert, chronically ill appearing, well nourished, no distress, non-toxic, obese EYE EXAM: normal conjunctiva. PERRL and EOM's grossly intact. OROPHARYNX: no exudate, no erythema, lips, buccal mucosa, and tongue normal and mucous membranes are moist NECK: supple, no nuchal rigidity, no adenopathy, non-tender LUNGS: Clear to auscultation. Normal chest wall mechanics HEART: no murmurs, regular rate, regular rhythm ABDOMEN: abdomen soft, non-tender, no masses, no rebound or guarding. BACK: Back is symmetrical on inspection and there is no deformity, no midline tenderness, no CVA tenderness. SKIN: no rashes and no bruising UPPER EXTREMITIES: upper extremities are grossly normal. LOWER EXTREMITIES: No pitting edema. NEURO EXAM:Patient is confused. She is severely inattentive, GCS 13, the patient can move all 4 extremities and she intermittently follows commands. Patient answers yes and no questions MEDICAL DECISION MAKING: Differential diagnoses includes but not limited to hypoglycemia, electrolyte derangements, dehydration, shock, CVA, ICH, hydrocephalus, NPH, UTI, pneumonia, viral URI, postictal period, ACS, dysrhythmia, metabolic encephalopathy, multifactorial encephalopathy, hepatic encephalopathy, hypercapnia, hypoxia, polypharmacy, substance use In summary, this is a 65 year old female who presented with AMS. Differential as above. Nursing notes and pertinent past medical records reviewed. Vital signs reviewed and the patient is mildly hypertensive but otherwise afebrile and HDS. History and presentation revealed multiple comorbidities that would lead to the patient's encephalopathy today. Patient is ESRD and has liver cirrhosis. There is also a potential for polypharmacy. The patient did have dialysis today and her confusion and encephalopathy could be related to fluid and electrolyte shifts during dialysis session. Other considerations would be stroke or air embolism. Patient has a nonfocal exam and examines more as acute encephalopathy rather than an intracranial etiology of her symptoms. We will plan to closely monitor the patient. Plan for the labs as well as imaging. Diagnostics interpreted by me include EKG and cardiac monitoring as listed below: -Cardiac Monitoring: An order was placed for continuous cardiac monitoring. The monitor shows a rate of 60s with regular rhythm. -ECG: EKG independently interpreted by me reveals what appears to be normal sinus rhythm at a ventricular rate of 64 bpm. She does have slightly widened QRS at 136 ms. Numerous areas of artifact. No significant ST segment changes to suggest STEMI. Patient completed laboratory studies and imaging. Results independently interpreted by me are Chronic pancytopenia noted. Improvement in hemoglobin. Patient does have ESRD without significant electrolyte derangements at this time. No significant acidosis. She is mildly alkalotic. Slight elevation and total bilirubin as well as alkaline phosphatase which is baseline for the patient. The patient was managed with close observation. CTH independently interpreted by me reveals no evidence of ICH. No significant hydrocephalus. No major skull fractures. CTH does not demonstrate findings to suggest an etiology of the patient's symptoms or presentation, today. CXR independently interpreted by me reveals no evidence of focal consolidation to suggest pna. No large pneumothorax or pleural effusion. No obvious displaced rib fracture. I did reevaluate the patient, she is still severely encephalopathic. She is protecting her airway. No significant electrolyte derangement/metabolic findings to explain her presentation. Her CT head is unremarkable. She has had presentations like this in the past when she has been noncompliant with dialysis. She was just at dialysis today and I do not feel that her metabolic dysfunctions are related to this. The patient could be experiencing her acute encephalopathy following dialysis just related to fluid shifting and electrolytes. If the patient fails to improve over the course the next few hours, she will require admission to the hospital given safety concern. Reevaluation of the patient at 1730. She is still severely encephalopathic. Attempted call to x2. Ultimately, the decision was made to admit the patient for multifactorial encephalopathy. I discussed the case with the hospitalist service via telephone/TigerText and they are agreeable to admit the patient to their services. Based on the above, including the patient's age, coexisting illnesses, labs, imaging, and exam findings the decision to treat as an inpatient. I discussed the patient with the hospitalist team who recommended admission to their services. They received the medications, treatments, interventions indicated above and their condition remained guarded. I discussed my findings with the patient and their family and they understand and agree with the treatment plan. All patient / family questions were answered to their satisfaction. Consults/Care Managements Discussions: Per [facility] ER treatment provided: See above Procedures:none Critical Care: None The chart was completed utilizing [employer] Speech voice recognition software. Grammatical errors, random word insertions, pronoun errors, and incomplete sentences are an occasional consequence of this system due to software limitations, ambient noise, and hardware issues. Any formal questions or concerns about the content, text, or information contained within the body of this dictation should be directly addressed to the physician for clarification. Past Med/Surg History Problem List (Updated 06/20/25 @ 14:59 by Mainor Londono DO) Pancytopenia (Acute) ESRD on dialysis (Acute) Acute encephalopathy (Acute) Cirrhosis Chronic hypotension Insulin-requiring or dependent type II diabetes mellitus (Acute) Volume overload Pancytopenia ESRD (end stage renal disease) on dialysis (Acute) Encephalopathy (Acute) Medical History Ischemic colitis CHF (congestive heart failure) Essential hypertension Dyslipidemia Chronic anemia Metabolic dysfunction-associated steatohepatitis (MASH) CAD (coronary artery disease) Surgical History History of tympanoplasty History of hernia repair History of hysterectomy Hx of heart artery stent Family History Other Diabetes Heart disease Social History Smoking Status: Current every day smoker Tobacco Type: Cigarettes Cigarettes Per Day: a "couple" daily; Second Hand Exposure: Yes; Do You Dip or Chew Tobacco: No; Tobacco Cessation Education Requested by Patient: No Hx Alcohol Use: No Hx Substance Use: No Preferred Language: Swedish Communication Ability: Effective [employer] Required: No Beliefs That Will Affect Care: None Current Living Situation: Spouse Current Living Situation Comment: and son Other Information That Helps Us Care for You: No Feels Safe at Home: Yes Safety Concerns: Feels Safe At This Time Assistive Devices: Walker Allergies Allergies Allergy/AdvReac Type Severity Reaction Status Date / Time atorvastatin [From Lipitor] Allergy Unknown Verified 04/24/25 19:33 cephalexin [From Keflex] Allergy itchy/vomit Verified 04/24/25 19:33 ing Sulfa (Sulfonamide Allergy Unknown Verified 04/24/25 19:33 Antibiotics) Home Meds Home Medications Medication Instructions Recorded Confirmed aspirin 81 mg tablet,delayed 81 mg PO QAM 04/24/25 06/18/25 release cholecalciferol (vitamin D3) 25 25 mcg PO DAILY 04/24/25 06/18/25 mcg (1,000 unit) tablet (Vitamin D3) ferric citrate 210 mg iron tablet 1 tab PO TIDM 04/24/25 06/18/25 (Auryxia) gabapentin 300 mg capsule 300 mg PO QPM 04/24/25 06/18/25 insulin glargine 100 unit/mL (3 10 unit subcut HS 04/24/25 06/18/25 mL) subcutaneous pen (Lantus Solostar U-100 Insulin) lorazepam 0.5 mg tablet 0.25 mg PO BID PRN Anxiety 04/24/25 06/18/25 mesalamine 800 mg tablet,delayed 800 mg PO TID 04/24/25 06/18/25 release midodrine 10 mg tablet 20 mg PO UD 04/24/25 06/18/25 omeprazole 20 mg capsule,delayed 20 mg PO QAM 04/24/25 06/18/25 release ranolazine 500 mg tablet,extended 500 mg PO BID 04/24/25 06/18/25 release,12 hr rifaximin 550 mg tablet (Xifaxan) 550 mg PO BID 04/24/25 06/18/25 ropinirole 3 mg tablet 3 mg PO BID 04/24/25 06/18/25 sacubitril 24 mg-valsartan 26 mg 1 tab PO AMHS 04/24/25 06/18/25 tablet (Entresto) sertraline 100 mg tablet 100 mg PO HS 04/24/25 06/18/25 simvastatin 20 mg tablet 20 mg PO HS 04/24/25 06/18/25 vitamin B complex-vitamin C-folic 1 tab PO DAILY 04/24/25 06/18/25 acid 0.8 mg tablet Previous Rx's Medication Instructions Recorded lactulose 10 gram oral packet 300 ml NJ Q6H PRN encephalopathy 06/19/25 #30 ea Results & Data (ED) Vital Signs Vital Signs - 24 hr 06/17/25 14:48 06/17/25 15:32 06/17/25 16:00 Temperature 36.9 C Temperature Source Oral Pulse Rate 72 69 66 Pulse Rate [Apical] Respiratory Rate 13 19 Respiratory Effort / Characteristics Respiratory Depth Blood Pressure 115/49 L Blood Pressure [Left Arm] Blood Pressure Mean 71 Blood Pressure Mean [Left Arm] Blood Pressure Position Semi-fowlers Blood Pressure Position [Left Arm] Pulse Oximetry 99 97 Oxygen Delivery Method Room Air Room Air Oxygen Flow Rate Sepsis Recent Fever Within 48 Hours No Sepsis New/Unexplained Change in Mental Status Yes Sepsis Action Taken by Nursing No Action Required Oxygen Flow Rate - Titration Pulse Oximetry Post Tiitration 06/17/25 16:19 06/17/25 17:00 06/17/25 17:56 Temperature Temperature Source Pulse Rate Pulse Rate [Apical] 63 Respiratory Rate 17 Respiratory Effort / Characteristics Non-Labored Spontaneous Respiratory Depth Normal Blood Pressure Blood Pressure [Left Arm] 178/79 H Blood Pressure Mean Blood Pressure Mean [Left Arm] 112 Blood Pressure Position Blood Pressure Position [Left Arm] Semi-fowlers Pulse Oximetry 97 98 78 L Oxygen Delivery Method Room Air Room Air Nasal Cannula Oxygen Flow Rate 0 Sepsis Recent Fever Within 48 Hours Sepsis New/Unexplained Change in Mental Status Sepsis Action Taken by Nursing Oxygen Flow Rate - Titration 3 Pulse Oximetry Post Tiitration 96 06/17/25 17:56 Temperature Temperature Source Pulse Rate Pulse Rate [Apical] Respiratory Rate Respiratory Effort / Characteristics Respiratory Depth Blood Pressure Blood Pressure [Left Arm] Blood Pressure Mean Blood Pressure Mean [Left Arm] Blood Pressure Position Blood Pressure Position [Left Arm] Pulse Oximetry 96 Oxygen Delivery Method Nasal Cannula Oxygen Flow Rate 3 Sepsis Recent Fever Within 48 Hours Sepsis New/Unexplained Change in Mental Status Sepsis Action Taken by Nursing Oxygen Flow Rate - Titration Pulse Oximetry Post Tiitration Laboratory Data 06/19/25 06:31 06/19/25 06:31 Lab Results 06/17/25 06/17/25 06/17/25 Range/Units 15:13 15:24 16:43 WBC 3.33 L (4.8-10.8) K/ul RBC 3.83 L (4.20-5.40) M/uL Hgb 12.1 (12.0-16.0) g/dL POC Hgb 13.3 (12.0-16.0) g/dl Hct 36.9 L (37.0-47.0) % POC Hct 39 (37-47) % MCV 96.3 (80.0-100.0) fL MCH 31.6 (25.0-34.0) pg MCHC 32.8 (32.0-36.0) g/dL RDW Std Deviation 60.5 H (36.4-46.3) fL RDW Coeff of Danette 17.0 H (11.5-14.5) % Plt Count 116 L (130-400) K/uL MPV 11.0 (9.4-12.4) fL Immature Gran % (Auto) 0.3 % Neut % (Auto) 58.0 % Lymph % (Auto) 28.5 % [place] % (Auto) 11.1 % Eos % (Auto) 1.5 % Baso % (Auto) 0.6 % Neut # (Auto) 1.93 (1.40-6.50) K/uL Lymph # (Auto) 0.95 L (1.20-3.40) K/uL [place] # (Auto) 0.37 (0.11-0.59) K/uL Eos # (Auto) 0.05 (0.00-0.50) K/uL Baso # (Auto) 0.02 (0.00-0.20) K/uL Immature Gran # (Auto) 0.01 (0.01-0.20) K/uL VBG pH 7.54 H (7.36-7.41) VBG pCO2 44 (38-50) mmHg VBG pO2 56 mmHg VBG HCO3 38 mmol/L VBG O2 Saturation 85.8 % VBG Base Excess 13.4 mEq/L POC Sodium 140 (135-144) mmol/L Sodium 140 (136-145) mmol/L POC Potassium 3.4 (3.3-5.0) mmol/L Potassium 3.5 (3.5-5.1) mmol/L POC Chloride 92 L (101-112) mmol/L Chloride 94 L (98-107) mmol/L Carbon Dioxide 36 H (21-32) mmol/L POC Total CO2 33 H (24-31) mmol/L Anion Gap 10 (3-11) POC Anion Gap 20.0 (16-25) mmol/L POC BUN 20 H (7-18) mg/dl BUN 20 (6-23) mg/dl Creatinine 3.13 H (0.6-1.2) mg/dl POC Creatinine 3.2 H (0.6-1.3) mg/dl Est Cr Clr Drug Dosing Not Reportable eGFR 15.90 BUN/Creatinine Ratio 6.4 L (10-20) Glucose 158 H (70-99(Fasting)) mg/dl POC Glucose (other) 152 H (70-99) mg/dl Lactate 2.4 H* (0.4-2.0) mmol/L Calcium 9.0 (8.6-10.3) mg/dl POC Ioniz Calcium Norberto 0.95 L (1.12-1.32) mmol/l Phosphorus 3.4 (2.5-4.9) mg/dl Magnesium 1.9 (1.7-2.4) mg/dl Total Bilirubin 1.1 H (0.2-1.0) mg/dl AST 29 (13-39) U/L ALT 11 (7-52) U/L Alkaline Phosphatase 149 H (34-104) U/L Total Protein 7.8 (6.0-8.3) gm/dl Albumin 3.6 (3.4-5.0) gm/dl Globulin 4.2 H (2.5-4.0) gm/dl Albumin/Globulin Ratio 0.9 (0.9-2) Lipase 29 (11-82) U/L Administered Medications Discontinued Medications Aspirin (Aspirin 81 Mg Ectab) 81 mg PO QAM SWATI Stop: 07/18/25 08:59 Last Admin: 06/19/25 08:54 Dose: 81 mg Documented By: Admin: 06/18/25 09:11 Dose: 81 mg Documented By: LMP Gabapentin (Gabapentin 300 Mg Cap) 300 mg PO QPM SWATI Stop: 07/18/25 20:59 Last Admin: 06/18/25 21:17 Dose: 300 mg Documented By: LORRIE Heparin Sodium (Porcine) (Heparin Sod 5,000 Unit/0.5 Ml Vial) 5,000 units SQ Q12 SWATI Stop: 07/17/25 20:59 Last Admin: 06/19/25 08:55 Dose: 5,000 units Documented By: Admin: 06/18/25 21:18 Dose: 5,000 units Documented By: Admin: 06/18/25 09:24 Dose: 5,000 units Documented By: Admin: 06/18/25 00:27 Dose: 5,000 units Documented By: HDC Sodium Chloride (Nss) 1,000 mls @ 50 mls/hr IV .Q20H SWATI Stop: 06/18/25 14:29 Last Infusion: 06/18/25 14:24 Dose: Infused Documented By: Admin: 06/17/25 19:21 Dose: 50 mls/hr Documented By: RON Piperacillin Sod/Tazobactam Sod (Zosyn) 4.5 gm in 100 mls @ 25 mls/hr IV Q12H SWATI; Protocol Stop: 06/20/25 05:59 Last Infusion: 06/18/25 11:42 Dose: Infused Documented By: Admin: 06/18/25 07:26 Dose: 25 mls/hr Documented By: LMP Piperacillin Sod/Tazobactam Sod (Zosyn) 4.5 gm in 100 mls @ 25 mls/hr IV ONE ONE; Protocol Stop: 06/17/25 22:44 Last Infusion: 06/18/25 00:27 Dose: Infused Documented By: Admin: 06/17/25 19:59 Dose: 25 mls/hr Documented By: LUCY Daptomycin 500 mg/ Syringe 10 mls @ 5 mls/min IV Q48H [facility]; Protocol Stop: 06/28/25 07:44 Last Admin: 06/18/25 09:08 Dose: 5 mls/min Documented By: MICHELLE Insulin Aspart (Insulin Aspart Per Unit Charge) 0 units SC Q6 SWATI Stop: 07/17/25 18:59 Last Admin: 06/18/25 08:34 Dose: Not Given Documented By: Admin: 06/18/25 00:39 Dose: Not Given Documented By: Admin: 06/17/25 20:04 Dose: 1 units Documented By: LUCY Co-signed By: STEPHANIE Insulin Aspart (Insulin Aspart Per Unit Charge) 0 units SC ACHS [facility] Stop: 07/18/25 07:29 Last Admin: 06/19/25 08:48 Dose: 5 units Documented By: DAVID Co-signed By: TRINI Admin: 06/18/25 21:10 Dose: 5 units Documented By: LORRIE Co-signed By: KEVIN Admin: 06/18/25 16:50 Dose: 4 units Documented By: LMP Co-signed By: bill Admin: 06/18/25 11:52 Dose: 6 units Documented By: LMP Co-signed By: CHRISTINA Admin: 06/18/25 08:05 Dose: 4 units Documented By: MICHELLE Co-signed By: CHRISTINA Insulin Glargine (Lantus Per Unit Charge) 7 units SC DAILY [facility] Stop: 07/19/25 08:59 Last Admin: 06/19/25 08:48 Dose: 7 units Documented By: DAVID Co-signed By: TRINI Lactobacillus Acidophilus (Advanced Probiotic 625 Mg Capsule) 1,250 mg PO DAILY [facility] Stop: 07/18/25 08:59 Last Admin: 06/19/25 08:53 Dose: 1,250 mg Documented By: Admin: 06/18/25 09:12 Dose: 1,250 mg Documented By: LMP Lorazepam (Lorazepam 0.5 Mg Tab) 0.25 mg PO BID PRN PRN Reason: Anxiety Stop: 07/18/25 08:01 Last Admin: 06/18/25 21:23 Dose: 0.25 mg Documented By: LORRIE Mesalamine (Mesalamine 800 Mg Tabcr) 800 mg PO TID SWATI Stop: 07/18/25 08:59 Last Admin: 06/19/25 08:55 Dose: 800 mg Documented By: Admin: 06/18/25 21:18 Dose: 800 mg Documented By: Admin: 06/18/25 13:58 Dose: 800 mg Documented By: Admin: 06/18/25 09:10 Dose: 800 mg Documented By: LMP Midodrine (Midodrine Hcl 10 Mg Tab) 20 mg PO BID@0800,1600 SWATI Stop: 07/18/25 08:14 Last Admin: 06/19/25 08:53 Dose: 20 mg Documented By: Admin: 06/18/25 16:50 Dose: 20 mg Documented By: Admin: 06/18/25 09:10 Dose: 20 mg Documented By: LMP Miscellaneous (Ferric Citrate [Auryxia] 210 Mg Iron Tablet - Order Awaiting Action) 1 each N/A QS SWATI Stop: 07/18/25 15:59 Last Admin: 06/19/25 08:58 Dose: Not Given Documented By: Admin: 06/18/25 23:50 Dose: Not Given Documented By: Admin: 06/18/25 16:50 Dose: Not Given Documented By: LMP Pantoprazole Sodium (Pantoprazole 40 Mg Tab) 40 mg PO QAM SWATI Stop: 07/18/25 08:59 Last Admin: 06/19/25 08:54 Dose: 40 mg Documented By: Admin: 06/18/25 09:11 Dose: 40 mg Documented By: LMP Ranolazine (Ranolazine 500 Mg Er Tab) 500 mg PO BID SWATI Stop: 07/18/25 08:59 Last Admin: 06/19/25 09:05 Dose: 500 mg Documented By: Admin: 06/18/25 21:18 Dose: 500 mg Documented By: Admin: 06/18/25 09:11 Dose: 500 mg Documented By: LMP Rifaximin (Rifaximin 550 Mg Tablet) 550 mg PO BID SWATI Stop: 07/18/25 08:59 Last Admin: 06/19/25 08:53 Dose: 550 mg Documented By: Admin: 06/18/25 21:19 Dose: 550 mg Documented By: Admin: 06/18/25 09:12 Dose: 550 mg Documented By: LMP Ropinirole HCl (Ropinirole Hcl 1 Mg Tablet) 3 mg PO BID SWATI Stop: 07/18/25 08:59 Last Admin: 06/19/25 08:54 Dose: 3 mg Documented By: Admin: 06/18/25 21:20 Dose: 3 mg Documented By: Admin: 06/18/25 09:11 Dose: 3 mg Documented By: LMP Sacubitril/Valsartan (Valsartan/Sacubitril 26/24mg Tab) 1 tab PO AMHS SWATI Stop: 07/18/25 08:59 Last Admin: 06/19/25 08:55 Dose: 1 tab Documented By: Admin: 06/18/25 21:23 Dose: Not Given Documented By: Admin: 06/18/25 09:12 Dose: 1 tab Documented By: LMP Simvastatin (Simvastatin 20 Mg Tab) 20 mg PO HS SWATI Stop: 07/18/25 20:59 Last Admin: 06/18/25 21:22 Dose: 20 mg Documented By: NRS Vitamin B Complex/Folic Acid (Nephrocaps) 1 cap PO DAILY SWATI Stop: 07/18/25 08:59 Last Admin: 06/19/25 08:53 Dose: 1 cap Documented By: Admin: 06/18/25 09:11 Dose: 1 cap Documented By: LMP Vitamin D (Cholecalciferol 25 Mcg (1000 Units) Tab) 25 mcg PO DAILY SWATI Stop: 07/18/25 08:59 Last Admin: 06/19/25 09:05 Dose: 25 mcg Documented By: Admin: 06/18/25 09:10 Dose: 25 mcg Documented By: LMP Imaging Data Radiologist's Impression: Chest X-Ray 06/17/25 15:07 XR chest 1V portable HISTORY: 65 years-old Female eval for fluid, pna acute shortness of breath COMPARISON: 05/29/2025 TECHNIQUE: AP view of the chest FINDINGS: Cardiac silhouette is enlarged. Atherosclerosis of the aorta. Mild right hemidiaphragmatic elevation. Pulmonary vascular congestion. No pneumothorax, large pleural effusion or lobar airspace consolidation. Bones appear grossly intact. IMPRESSION: Cardiomegaly with pulmonary vascular congestion. ACT 112: Negative or not required by law. The above report was generated using voice recognition software. It may contain grammatical, syntax or spelling errors. Electronically signed by: Librado Benjamin M.D. 06/17/2025 3:[address] 06/17/25 15:07 CT head/brain wo con CLINICAL HISTORY: 65 years-old Female with AMS. Acutely altered mental status TECHNIQUE: Multiple axial CT images of the head were obtained without contrast. A dose lowering technique was utilized adhering to the principles of ALARA. CT DOSE: 962.98 mGy.cm COMPARISON: 05/29/2025 FINDINGS: No acute intracranial hemorrhage, midline shift, intracranial mass, hydrocephalus, territorial ischemia or abnormal extra-axial collection. Chronic appearing right caudate nuclear lacunar infarct. Study is mildly motion degraded. The calvarium is intact. Prior partial left mastoidectomy with small effusion. The right mastoid air cells and paranasal sinuses are generally clear. Prior bilateral lens repair. IMPRESSION: No acute intracranial abnormality. ACT 112: Negative or not required by law. The above report was generated using voice recognition software. It may contain grammatical, syntax or spelling errors. Electronically signed by: Librado Benjamin M.D. 06/17/2025 3:49 PM Discharge Plan Visit Data Chief Complaint: Lethargic Stated Complaint: LETHARGIC ED Provider: Mainor Londono Discharge Problem: Acute encephalopathy, ESRD on dialysis, Pancytopenia Patient Disposition: Admitted As Inpatient Condition: Serious Discharge Instructions Interventions: ED Discharge Assessment Last Done: 06/17/25 20:51
[2025-06-17 15:37] LABS: Hematocrit (blood only) 36.9 % (37.0-47.0); Hemoglobin 12.1 g/dL (12.0-16.0); Immature Granulocytes # (auto) 0.01 K/uL (0.01-0.20); Immature Granulocytes % (auto) 0.3 %; Mean Corpuscular Hemoglobin 31.6 pg (25.0-34.0); Mean Corpuscular Volume 96.3 fL (80.0-100.0); Platelet Count 116 K/uL (130-400); RDW Standard Deviation 60.5 fL (36.4-46.3); Red Blood Count 3.83 M/uL (4.20-5.40); White Blood Count 3.33 K/ul (4.8-10.8)
[2025-06-17 15:51] LABS: Alanine Aminotransferase 11 U/L (7-52); Albumin Globulin Ratio 0.9 (0.9-2); Albumin Level 3.6 gm/dl (3.4-5.0); Alkaline Phosphatase 149 U/L (34-104); Anion Gap 10 (3-11); Bilirubin,Total 1.1 mg/dl (0.2-1.0); Blood Urea Nitrogen 20 mg/dl (6-23); Calcium 9.0 mg/dl (8.6-10.3); Carbon Dioxide 36 mmol/L (21-32); Chloride 94 mmol/L (98-107); Globulin 4.2 gm/dl (2.5-4.0); Glucose 158 mg/dl (70-99(Fasting)); Lipase 29 U/L (11-82); Magnesium 1.9 mg/dl (1.7-2.4); Potassium 3.5 mmol/L (3.5-5.1); Sodium 140 mmol/L (136-145); Total Protein 7.8 gm/dl (6.0-8.3)
--- NOTE | 2025-06-17 15:51 | CT Scan Report ---
CT head/brain wo con CLINICAL HISTORY: 65 years-old Female with AMS. Acutely altered mental status TECHNIQUE: Multiple axial CT images of the head were obtained without contrast. A dose lowering tech nique was utilized adhering to the principles of ALARA. CT DOSE: 962.98 mGy.cm COMPARISON: 05/29/2025 FINDINGS: No acute intracranial hemorrhage, midline shift, intracranial mass, hydrocephalus, territorial ischem ia or abnormal extra-axial collection. Chronic appearing right caudate nuclear lacunar infarct. Study is mildly motion degraded. The calvarium is intact. Prior partial left mastoidectomy with small effusion. The right mastoid air cells and paranasal sinuses are generally clear. Prior bilateral lens repair. IMPRESSION: No acute intracranial abnormality. ACT 112: Negative or not required by law. The above report was generated using voice recognition software. It may contain grammatical, syntax o r spelling errors. Electronically signed by: Librado Benjamin M.D. 06/17/2025 3:49 PM
--- NOTE | 2025-06-17 15:52 | XRay Report ---
XR chest 1V portable HISTORY: 65 years-old Female eval for fluid, pna acute shortness of breath COMPARISON: 05/29/2025 TECHNIQUE: AP view of the chest FINDINGS: Cardiac silhouette is enlarged. Atherosclerosis of the aorta. Mild right hemidiaphragmatic elevation. Pulmonary vascular congestion. No pneumothorax, large pleural effusion or lobar airspace consolidati on. Bones appear grossly intact. IMPRESSION: Cardiomegaly with pulmonary vascular congestion. ACT 112: Negative or not required by law. The above report was generated using voice recognition software. It may contain grammatical, syntax o r spelling errors. Electronically signed by: Librado Benjamin M.D. 06/17/2025 3:51 PM
[2025-06-17 16:54] LABS: Base Excess VBG 13.4 mEq/L; HCO3 VBG 38 mmol/L; Oxygen Saturation VBG 85.8 %; PCO2 VBG 44 mmHg (38-50); PO2 VBG 56 mmHg; pH VBG 7.54 (7.36-7.41)
[2025-06-17] MEDS ORDERED: ACETAMINOPHEN 325 MG TAB PO PRN (18:18)
[2025-06-17] MEDS ORDERED: ALUMINUM/MAGNESIUM SUSP 30 ML UDC PO PRN (18:18)
[2025-06-17] MEDS ORDERED: MAGNESIUM HYDROXIDE SUSP 30 ML UDC PO PRN (18:18)
[2025-06-17] MEDS ORDERED: POLYETHYLENE (MIRALAX) 17 GM PACK PO PRN (18:18)
[2025-06-17] MEDS ORDERED: GLUCAGON FOR INJ 1 MG VIAL SQ PRN (18:21)
[2025-06-17] MEDS ORDERED: DEXTROSE 50% 50 ML SYRINGE IV PRN (18:21)
[2025-06-17] MEDS ORDERED: PHARMACY GLYCEMIC MGMT CONSULT PRN (18:21)
[2025-06-17] MEDS ORDERED: CARBOHYDRATES FOR HYPOGLYCEMIA PO PRN (18:21)
[2025-06-17] MEDS ORDERED: GLUCOSE 40% GEL 15 GM TUBE PO PRN (18:21)
[2025-06-17] MEDS ORDERED: GLUCOSE 10 TAB/TUBE PO PRN (18:21)
[2025-06-17] MEDS ORDERED: D5W AND NSS 1,000 ML IV SCH (18:30)
[2025-06-17] MEDS ORDERED: LACTULOSE 200GM/700ML WTR ENEMA PR PRN (18:32)
--- NOTE | 2025-06-17 18:39 | History & Physical Report ---
Date of Service June 17, 2025 Assessment & Plan (1) Encephalopathy: Plan 65 year old female with PMH significant for ESRD on HD (M/W/), CAD s/p stent, CHF, hypotension (on midodrine), type 2 diabetes with polyneuropathy, MASH Cirrhosis, GERD, chronic anemia, history of ischemic colitis, history of basal ganglia stroke, depression, RLS who presented to the ED with lethargy and confusion after dialysis. Encephalopathy Likely multifactorial in the setting of fluid shift occuring during HD, cirrhosis, neuropsychotropic medications Head CT negative Labs without signs of infection, monitor closely. get NH3 level. labs fairly wnl, but lactate elevated empiric antibiotic, blood culture NPO, gentle ivf. Resume diet and meds once mentating clear. Recommend lactulose with goal of 2 bowel movements per day pr now and po once mentation improves Hold neuropsychiatric meds. ESRD on HD: home schedule M/W/, nephro consult. 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 Type 2 diabetes sliding scale here GERD Continue omeprazole when able CAD Continue baby aspirin, statin, and ranolazine when able. HF Continue Entresto when able to take po RLS Continue ropinirole when able. History of ischemic colitis Continue mesalamine when able to take po Depression Continue sertraline when able. History of Present Illness Chief Complaint: confusion Primary Care Provider: Sina Pena 65-year-old female with PMH of ESRD on HD [Tuesday], CAD status post stent, CHF, hypotension [on midodrine], T2DM, HARRISON cirrhosis, chronic anemia, GERD presents to the ED from dialysis after she became lethargic and confused after the dialysis treatment today. She has similar admission in May when infectious cause was ruled out. History taken from chart review and discussion with the ER physician. Patient opens eyes to name, has very short attention span, falls back to sleep quickly, ROS does not able in detail. Patient denied chest pain/sore throat/cough/abdominal pain. Patient denied numbness or tingling. I tried to call Alan who is listed as primary contact twice and left voicemail once, I could not connect. Per ER physician they also couldn't connect when they called twice. Pt was able to cooperate some for exam. Medications reviewed from recent discharge summary. Full code until meaningful communication can happen with the patient or family. Allergies Allergy/AdvReac Type Severity Reaction Status Date / Time atorvastatin [From Lipitor] Allergy Unknown Verified 04/24/25 19:33 cephalexin [From Keflex] Allergy itchy/vomit Verified 04/24/25 19:33 ing Sulfa (Sulfonamide Allergy Unknown Verified 04/24/25 19:33 Antibiotics) Home Medications Medication Instructions Recorded Confirmed Type aspirin 81 mg tablet,delayed 81 mg PO QAM 04/24/25 05/29/25 History release cholecalciferol (vitamin D3) 25 25 mcg PO DAILY 04/24/25 05/29/25 History mcg (1,000 unit) tablet (Vitamin D3) ferric citrate 210 mg iron tablet 1 tab PO TIDM 04/24/25 05/29/25 History (Auryxia) gabapentin 300 mg capsule 300 mg PO QPM 04/24/25 05/29/25 History insulin glargine 100 unit/mL (3 10 unit subcut HS 04/24/25 05/29/25 History mL) subcutaneous pen (Lantus Solostar U-100 Insulin) lorazepam 0.5 mg tablet 0.25 mg PO BID PRN Anxiety 04/24/25 05/29/25 History mesalamine 800 mg tablet,delayed 800 mg PO TID 04/24/25 05/29/25 History release midodrine 10 mg tablet 20 mg PO UD 04/24/25 05/29/25 History omeprazole 20 mg capsule,delayed 20 mg PO QAM 04/24/25 05/29/25 History release ranolazine 500 mg tablet,extended 500 mg PO BID 04/24/25 05/29/25 History release,12 hr rifaximin 550 mg tablet (Xifaxan) 550 mg PO BID 04/24/25 05/29/25 History ropinirole 3 mg tablet 3 mg PO BID 04/24/25 05/29/25 History sacubitril 24 mg-valsartan 26 mg 1 tab PO AMHS 04/24/25 05/29/25 History tablet (Entresto) sertraline 100 mg tablet 100 mg PO HS 04/24/25 05/29/25 History simvastatin 20 mg tablet 20 mg PO HS 04/24/25 05/29/25 History vitamin B complex-vitamin C-folic 1 tab PO DAILY 04/24/25 05/29/25 History acid 0.8 mg tablet Past Med/Surg History Problem List Cirrhosis Chronic hypotension Insulin-requiring or dependent type II diabetes mellitus (Acute) Volume overload Pancytopenia ESRD (end stage renal disease) on dialysis (Acute) Encephalopathy (Acute) Medical History Ischemic colitis CHF (congestive heart failure) Essential hypertension Dyslipidemia Chronic anemia Metabolic dysfunction-associated steatohepatitis (MASH) CAD (coronary artery disease) Surgical History History of tympanoplasty History of hernia repair History of hysterectomy Hx of heart artery stent Family History Other Diabetes Heart disease Social History Smoking Status: Unknown if ever smoked Tobacco Type: Cigarettes Cigarettes Per Day: "a few"; Second Hand Exposure: Yes; Do You Dip or Chew Tobacco: No; Hx Alcohol Use: No Hx Substance Use: No Preferred Language: Lebanese Communication Ability: Effective 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 Physical Exam Physical Exam: GENERAL: lethargic, confused, opens eyes to name, has short attention span, falls back to sleep quickly. HEENT: No pallor, no icterus. Pupils equal, round and reactive to light. Oral mucosa dry. NECK: No JVD, no neck masses. HEART: S1 and S2 heard. Regular rate and rhythm. No murmur, no gallop. RESPIRATORY SYSTEM: Normal AP diameter. No accessory muscle use. No wheezing, no crackles. ABDOMEN: Soft, bowel sounds present, nontender, no distention. CENTRAL NERVOUS SYSTEM: No facial droop. Obeys simple commands. Moves extremities. power 5/5 all limbs EXTREMITIES: No edema, no erythema seen. ble chronic skin changes. Results & Data Results & Data Vital Signs (Past 12 Hours) Vital Signs Temp Pulse Pulse Resp BP BP Pulse Ox 06/17/25 17:56 96 06/17/25 17:56 78 L 06/17/25 17:00 63 17 178/79 H 98 06/17/25 16:19 97 06/17/25 16:00 66 19 97 06/17/25 15:32 69 06/17/25 14:48 36.9 C 72 13 115/49 L 99 O2 Del Method O2 Flow Rate 06/17/25 17:56 Nasal Cannula 3 06/17/25 17:56 Nasal Cannula 0 06/17/25 17:00 Room Air 06/17/25 16:19 Room Air 06/17/25 16:00 Room Air 06/17/25 15:32 06/17/25 14:48 Room Air (1) Encephalopathy Encephalopathy type: unspecified encephalopathy Qualified Code(s): G93.40 - Encephalopathy, unspecified
--- NOTE | 2025-06-17 18:56 | Pharmacy Report ---
Pharmacy Glycemic Short Note 2 - Date of Service June 17, 2025 - Glycemic Short BSG Results (Last 24 hours): 06/17/25 06/17/25 15:13 15:24 Glucose 158 H POC Glucose (other) 152 H OUTPATIENT ANTIDIABETIC REGIMEN: * Insulin glargine 10 units nightly * Medication reconciliation could not be completed since patient came in with lethargy and confusion * Based on outpatient pharmacy fill history, seems like insulin glargine 10 units nightly is the only home diabetes medication * HbA1c: 6.1% (04/25/25) ASSESSMENT: * Nelli is a 65 year old female with T2DM who presents with lethargy and confusion after dialysis * ESRD patient - insulin may be cleared more slowly in dialysis patients * Will initiate sliding scale insulin every 6 hours in between a stress level of 1 and 2 * Hold basal insulin at this time since patient is NPO and next dialysis session unknown * Stressors: potential infection PLAN FOR INPATIENT GLYCEMIC CONTROL: * Basal insulin * Hold for now * Bolus insulin * NovoLog per scale ACHS or Q6hrs while NPO * Goal Range: Low 120 mg/dL - High 160 mg/dL * Correction Factor: 30 mg/dL/unit * Nutritional / Prandial insulin per carb ratio of 1 unit per 10 grams CHO consumed
[2025-06-17] MEDS: SODIUM CHLORIDE 0.9% 1,000 ML IV SCH (19:21)
[2025-06-17] MEDS: PIPERACILLIN/TAZOBACTAM 4.5 GM/100 ML BAG IV ONE (19:59)
[2025-06-17] MEDS: INSULIN ASPART PER UNIT CHARGE SC SCH (20:04)
[2025-06-18] MEDS: HEPARIN SOD 5,000 UNIT/0.5 ML VIAL SQ SCH (00:27)
[2025-06-18 06:39] LABS: Appearance Urine Turbid (Clear); Bacteria Urine Automated 4+ (None Seen); Cast Urine Automated 0-2 /lpf (0-2); Glucose Urine UA Negative (Negative); RBC Urine Automated >20 /hpf (0-2); WBC Urine Automated >50 /hpf (0-5)
[2025-06-18] MEDS ORDERED: Nursing to Pharmacy Communication SCH (07:15)
[2025-06-18] MEDS: PIPERACILLIN/TAZOBACTAM 4.5 GM/100 ML BAG IV SCH (07:26)
[2025-06-18 07:34] LABS: Hematocrit (blood only) 35.6 % (37.0-47.0); Hemoglobin 11.4 g/dL (12.0-16.0); Mean Corpuscular Hemoglobin 31.5 pg (25.0-34.0); Mean Corpuscular Volume 98.3 fL (80.0-100.0); Platelet Count 118 K/uL (130-400); RDW Standard Deviation 61.1 fL (36.4-46.3); Red Blood Count 3.62 M/uL (4.20-5.40); White Blood Count 3.80 K/ul (4.8-10.8)
[2025-06-18 08:02] LABS: Alanine Aminotransferase 10.0 U/L (7-52); Albumin Globulin Ratio 0.8 (0.9-2); Albumin Level 3.1 gm/dl (3.4-5.0); Alkaline Phosphatase 121.0 U/L (34-104); Anion Gap 11.0 (3-11); Bilirubin,Total 1.2 mg/dl (0.2-1.0); Blood Urea Nitrogen 29.0 mg/dl (6-23); Calcium 8.6 mg/dl (8.6-10.3); Carbon Dioxide 33.0 mmol/L (21-32); Chloride 97.0 mmol/L (98-107); Creatinine Clr Calc Pharmacy 16.7 ml/min; Globulin 3.8 gm/dl (2.5-4.0); Glucose 115.0 mg/dl (70-99(Fasting)); Magnesium 2.0 mg/dl (1.7-2.4); Potassium 4.3 mmol/L (3.5-5.1); Sodium 141.0 mmol/L (136-145); Total Protein 6.9 gm/dl (6.0-8.3)
[2025-06-18] MEDS: INSULIN ASPART PER UNIT CHARGE SC SCH (08:05)
[2025-06-18] MEDS ORDERED: MIDODRINE HCL 10 MG TAB PO SCH (09:00)
[2025-06-18] MEDS: DAPTOmycin 500 MG in SYRINGE 0 ML IV SCH (09:08)
[2025-06-18] MEDS: MESALAMINE 800 MG TABCR PO SCH (09:10)
[2025-06-18] MEDS: CHOLECALCIFEROL 25 MCG (1000 UNITS) TAB PO SCH (09:10)
[2025-06-18] MEDS: MIDODRINE HCL 10 MG TAB PO SCH (09:10)
[2025-06-18] MEDS: NEPHROCAPS PO SCH (09:11)
[2025-06-18] MEDS: ASPIRIN 81 MG ECTAB PO SCH (09:11)
[2025-06-18] MEDS: RANOLAZINE 500 MG ER TAB PO SCH (09:11)
[2025-06-18] MEDS: ADVANCED PROBIOTIC 625 MG CAPSULE PO SCH (09:12)
[2025-06-18] MEDS: VALSARTAN/SACUBITRIL 26/24MG TAB PO SCH (09:12)
--- NOTE | 2025-06-18 12:51 | Nephrology Consultation ---
Date of Consultation June 18, 2025 Assessment & Plan (1) ESRD (end stage renal disease) on dialysis: end-stage renal disease on chronic hemodialysis Tuesday and she did have dialysis yesterday at her regular unit in [place]. at this time does not appear to have any significant volume overload or electrolyte issues. chest x-ray is reported as pulmonary congestion which in a chronic dialysis patient is quite expected. However she does not appear to be in any respiratory distress and she is on room air. if she does not get discharged today she will have dialysis as an inpatient tomorrow. We will do her on 2K bath 3 hour 30 minutes and take about 2.5 kilos off. from Nephrology standpoint she can be discharged (2) Encephalopathy: she had some confusion lethargy and presyncopal event after dialysis but she is back to her baseline in a relatively short period of time. I do not think there is anything acutely serious in the cause discharge disposition as per the primary team Plan total time spent 45 minutes History of Present Illness Reason for Consultation: dialysis patient admitted with altered mental status Attending Physician: Nathan Kemp MD History of Present Illness 65/F with ESRD on HD [Tuesday] in [place], CAD status post stent, CHF, chronic hypotension [on midodrine], T2DM, HARRISON cirrhosis, chronic anemia, GERD presented to the ED from dialysis after she became let hargic/confused/ presyncope after the dialysis treatment. She has similar admission in May when infectious cause was ruled out. she had blood culture drawn and antibiotics empirically started for presumed urinary tract infection. However patient mental status is completely back to normal by the time I saw the patient earlier this morning. at this point she denies having any symptoms and her vital signs are all normal and her mental status is normal. review of systems 12 systems reviewed and negative physical examination middle aged white female who is not in any respiratory distress he is awake alert oriented x3 and able to give detailed account of her complicated medical history mucous membrane is moist neck is supple no JVD chest bilateral clear to auscultation CVS S1-S2 regular soft systolic murmur heard abdomen is soft nontender obese extremities shows bilateral chronic skin changes related with chronic edema/venous insufficiency Allergies Allergy/AdvReac Type Severity Reaction Status Date / Time atorvastatin [From Lipitor] Allergy Unknown Verified 09/24/25 19:33 cephalexin [From Keflex] Allergy itchy/vomit Verified 04/24/25 19:33 ing Sulfa (Sulfonamide Allergy Unknown Verified 04/24/25 19:33 Antibiotics) Home Medications Medication Instructions Recorded Confirmed Type aspirin 81 mg tablet,delayed 81 mg PO QAM 04/24/25 06/18/25 History release cholecalciferol (vitamin D3) 25 25 mcg PO DAILY 04/24/25 06/18/25 History mcg (1,000 unit) tablet (Vitamin D3) ferric citrate 210 mg iron tablet 1 tab PO TIDM 04/24/25 06/18/25 History (Auryxia) gabapentin 300 mg capsule 300 mg PO QPM 04/24/25 06/18/25 History insulin glargine 100 unit/mL (3 10 unit subcut HS 04/24/25 06/18/25 History mL) subcutaneous pen (Lantus Solostar U-100 Insulin) lorazepam 0.5 mg tablet 0.25 mg PO BID PRN Anxiety 04/24/25 06/18/25 History mesalamine 800 mg tablet,delayed 800 mg PO TID 04/24/25 06/18/25 History release midodrine 10 mg tablet 20 mg PO UD 04/24/25 06/18/25 History omeprazole 20 mg capsule,delayed 20 mg PO QAM 04/24/25 06/18/25 History release ranolazine 500 mg tablet,extended 500 mg PO BID 04/24/25 06/18/25 History release,12 hr rifaximin 550 mg tablet (Xifaxan) 550 mg PO BID 04/24/25 06/18/25 History ropinirole 3 mg tablet 3 mg PO BID 04/24/25 06/18/25 History sacubitril 24 mg-valsartan 26 mg 1 tab PO AMHS 04/24/25 06/18/25 History tablet (Entresto) sertraline 100 mg tablet 100 mg PO HS 04/24/25 06/18/25 History simvastatin 20 mg tablet 20 mg PO HS 04/24/25 06/18/25 History vitamin B complex-vitamin C-folic 1 tab PO DAILY 04/24/25 06/18/25 History acid 0.8 mg tablet Patient History Medical History Ischemic colitis CHF (congestive heart failure) Essential hypertension Dyslipidemia Chronic anemia Metabolic dysfunction-associated steatohepatitis (MASH) CAD (coronary artery disease) Surgical History History of tympanoplasty History of hernia repair History of hysterectomy Hx of heart artery stent Family History Other Diabetes Heart disease Social History Smoking Status: Current every day smoker Tobacco Type: Cigarettes Cigarettes Per Day: a "couple" daily; Second Hand Exposure: Yes; Do You Dip or Chew Tobacco: No; Tobacco Cessation Education Requested by Patient: No Hx Alcohol Use: No Hx Substance Use: No Preferred Language: German Communication Ability: Effective Board Certified Orthodontist Required: No Beliefs That Will Affect Care: None Current Living Situation: Spouse Current Living Situation Comment: and son Other Information That Helps Us Care for You: No Feels Safe at Home: Yes Safety Concerns: Feels Safe At This Time Assistive Devices: Walker Results & Data Vital Signs (Past 12 Hours) Vital Signs Temp Pulse Pulse Resp BP Pulse Ox O2 Del Method 06/18/25 12:05 36.7 C 59 L 18 105/58 L 98 Room Air 06/18/25 08:00 59 L 06/18/25 03:15 36.6 C 60 20 131/58 L 100 Nasal Cannula O2 Flow Rate 06/18/25 12:05 06/18/25 08:00 06/18/25 03:15 2 Laboratory Results CBC and renal panel reviewed (2) Encephalopathy Encephalopathy type: unspecified encephalopathy Qualified Code(s): G93.40 - Encephalopathy, unspecified
--- NOTE | 2025-06-18 16:30 | Hospitalist Progress Note ---
Date of Service June 18, 2025 Assessment & Plan (1) Encephalopathy: Plan 65 year old female with PMH significant for ESRD on HD (M/W/F), CAD s/p stent, CHF, hypotension (on midodrine), type 2 diabetes with polyneuropathy, MASH Cirrhosis, GERD, chronic anemia, history of ischemic colitis, history of basal ganglia stroke, depression, RLS who presented to the ED with lethargy and confusion after dialysis. Encephalopathy Likely multifactorial in the setting of fluid shift occuring during HD, cirrhosis, neuropsychotropic medications Head CT negative urinalysis: Possible UTI ( has a history of Enterococcus UTI back in April 2025) ammonia level: Within normal limits currently afebrile, back to baseline mental status Urine culture pending Blood culture pending Continue empiric daptomycin in light of recent Enterococcus UTI Continue rifaximin ESRD on HD: home schedule M/W/, nephro consult. 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 HF Continue Entresto RLS Continue ropinirole when able. History of ischemic colitis Continue mesalamine when able to take po Depression Continue sertraline when able DVT prophylaxis Heparin subcu every 12 hours CODE STATUS full code Disposition admitted to PCU Lives at home with Possible discharge tomorrow when urine culture result has finalized Admission and Anticipated Discharge Date Admission Date: June 17, 2025 Subjective seen sitting up in bed side chair, awake and alert, having her lunch Oriented timesx 3, answering questions appropriately States she feels fine overall Admits to having some dysuria prior to admission No fevers or chills At present, denies abdominal pain, nausea, headache, dizziness, chest pain, shortness of breath No other new symptoms Review of Systems Review of Systems: all noted and negative except for above Physical Exam Physical Exam: General- oriented x 3, not in distress, speaks in sentences with no effort or accessory muscle use Eyes- anicteric Neck- no JVD Lungs- clear breath sounds bilaterally, no rales/wheezes Heart- normal rate, regular rhythm; no murmurs Abdomen- normal bowel sounds, nondistended, soft, nontender Extremities- no pretibial edema, no calf tenderness Neuro- alert, oriented x 3; no gross focal neurologic deficits Skin- warm & dry Results & Data Results & Data Vital Signs (Past 12 Hours) Vital Signs Temp Pulse Pulse Resp BP BP Pulse Ox 06/18/25 16:09 36.7 C 59 L 19 92/43 L 97 06/18/25 13:10 61 06/18/25 12:05 36.7 C 59 L 18 105/58 L 98 06/18/25 08:00 59 L O2 Del Method 06/18/25 16:09 Room Air 06/18/25 13:10 06/18/25 12:05 Room Air 06/18/25 08:00 all noted and reviewed including below (1) Encephalopathy Encephalopathy type: unspecified encephalopathy Qualified Code(s): G93.40 - Encephalopathy, unspecified
[2025-06-18] MEDS ORDERED: NON-FORMULARY MEDICATION (Insulin Glargine [Lantus Solostar U-100 Insulin] 100 unit/mL (3 SQ SCH (21:00)
[2025-06-18] MEDS ORDERED: SERTRALINE HCL 100 MG TABLET PO SCH (21:00)
[2025-06-18] MEDS: GABAPENTIN 300 MG CAP PO SCH (21:17)
[2025-06-18] MEDS: SIMVASTATIN 20 MG TAB PO SCH (21:22)
[2025-06-18] MEDS: LORazepam 0.5 MG TAB PO PRN (21:23)
[2025-06-19 06:53] LABS: Hematocrit (blood only) 33.1 % (37.0-47.0); Hemoglobin 10.8 g/dL (12.0-16.0); Immature Granulocytes # (auto) 0.01 K/uL (0.01-0.20); Immature Granulocytes % (auto) 0.3 %; Mean Corpuscular Hemoglobin 31.9 pg (25.0-34.0); Mean Corpuscular Volume 97.6 fL (80.0-100.0); Platelet Count 101 K/uL (130-400); RDW Standard Deviation 60.6 fL (36.4-46.3); Red Blood Count 3.39 M/uL (4.20-5.40); White Blood Count 3.17 K/ul (4.8-10.8)
[2025-06-19] MEDS ORDERED: SODIUM CHLORIDE 0.9% 1,000 ML IV PRN (07:00)
[2025-06-19 07:28] LABS: Alanine Aminotransferase 8.0 U/L (7-52); Albumin Globulin Ratio 0.9 (0.9-2); Albumin Level 3.1 gm/dl (3.4-5.0); Alkaline Phosphatase 126.0 U/L (34-104); Anion Gap 15.0 (3-11); Bilirubin,Total 1.0 mg/dl (0.2-1.0); Blood Urea Nitrogen 49.0 mg/dl (6-23); Calcium 8.2 mg/dl (8.6-10.3); Carbon Dioxide 27.0 mmol/L (21-32); Chloride 97.0 mmol/L (98-107); Creatinine Clr Calc Pharmacy 11.9 ml/min; Globulin 3.5 gm/dl (2.5-4.0); Glucose 198.0 mg/dl (70-99(Fasting)); Potassium 4.0 mmol/L (3.5-5.1); Sodium 139.0 mmol/L (136-145); Total Protein 6.6 gm/dl (6.0-8.3)
[2025-06-19 07:33] VITALS: RESP 22; O2SAT 99
[2025-06-19] MEDS ORDERED: LIDOCAINE 4% CREAM 15 GM TUBE EXT PRN (08:21)
[2025-06-19] MEDS: LANTUS PER UNIT CHARGE SC SCH (08:48)
--- NOTE | 2025-06-19 10:35 | Dialysis Progress Note ---
Date of Service June 19, 2025 Assessment & Plan Admission and Anticipated Discharge Date Admission Date: June 17, 2025 Subjective Assessment & Plan (1) ESRD (end stage renal disease) on dialysis: end-stage renal disease on chronic hemodialysis Tuesday and she did have dialysis yesterday at her regular unit in [place]. at this time does not appear to have any significant volume overload or electrolyte issues. chest x-ray is reported as pulmonary congestion which in a chronic dialysis patient is quite expected. However she does not appear to be in any respiratory distress and she is on room air. We will do her on 2K bath 3 hour 30 minutes and take about 2.5 kilos off. from Nephrology standpoint she can be discharged after dialysis (2) Encephalopathy: she had some confusion lethargy and presyncopal event after dialysis but she is back to her baseline in a relatively short period of time. I do not think there is anything acutely serious in the cause discharge disposition as per the primary team S---seen during dialysis. Doing fine. BP and AVF fine. No compalints physical examination middle aged white female who is not in any respiratory distress he is awake alert oriented x3 and able to give detailed account of her complicated medical history mucous membrane is moist neck is supple no JVD chest bilateral clear to auscultation CVS S1-S2 regular soft systolic murmur heard abdomen is soft nontender obese extremities shows bilateral chronic skin changes related with chronic edema/venous insufficiency Results & Data Vital Signs (Past 12 Hours) Vital Signs Temp Pulse Resp BP Pulse Ox O2 Del Method 06/19/25 07:32 36.5 C 60 22 146/77 H 99 Room Air 06/19/25 03:06 36.5 C 66 20 126/65 95 Room Air 06/18/25 23:15 36.5 C 60 20 121/69 99 Room Air
[2025-06-19 12:04] VITALS: TEMP 97.9
[2025-06-19 14:33] VITALS: BP 146/77; PULSE 60
--- NOTE | 2025-06-19 16:10 | Discharge Summary ---
Discharge Summary Date of Service June 19, 2025 Principal Dx & Hospital Course #1 = Principal Diagnosis (1) Encephalopathy: Plan 65 year old female with PMH significant for ESRD on HD (M//), CAD s/p stent, CHF, hypotension (on midodrine), type 2 diabetes with polyneuropathy, MASH Cirrhosis, GERD, chronic anemia, history of ischemic colitis, history of basal ganglia stroke, depression, RLS who presented to the ED with lethargy and confusion after dialysis. Encephalopathy Likely multifactorial in the setting of fluid shift occuring during HD, cirrhosis, neuropsychotropic medications Head CT negative urinalysis: Possible UTI ( has a history of Enterococcus UTI back in April 2025) ammonia level: Within normal limits currently afebrile, back to baseline mental status Urine culture pending Blood culture pending Continue empiric daptomycin in light of recent Enterococcus UTI Continue rifaximin ESRD on HD: home schedule //, nephro consult. 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 HF Continue Entresto RLS Continue ropinirole when able. History of ischemic colitis Continue mesalamine when able to take po Depression Continue sertraline when able DVT prophylaxis Heparin subcu every 12 hours CODE STATUS full code Disposition admitted to PCU Lives at home with Possible discharge tomorrow when urine culture result has finalized Notes For Next Care Provider 65-year-old female with PMH of ESRD on HD [Tuesday], CAD status post stent, CHF, hypotension [on midodrine], T2DM, HARRISON cirrhosis, chronic anemia, GERD presents to the ED from dialysis after she became lethargic and confused after the dialysis treatment today. Admitted to medicine for metabolic encephalopathy. On medicine, nephrology consulted, recommended dialysis. Patient improved with lactulose and dialysis. On 06/19/2025 patient medically stable for discharge home. To do: [ ] titrate lactulose dosing as needed [ ] do not miss dialysis session Medication Changes From Visit -see below Admission HPI Per Admitting Provider 65-year-old female with PMH of ESRD on HD [Tuesday], CAD status post stent, CHF, hypotension [on midodrine], T2DM, HARRISON cirrhosis, chronic anemia, GERD presents to the ED from dialysis after she became lethargic and confused after the dialysis treatment today. She has similar admission in May when infectious cause was ruled out. History taken from chart review and discussion with the ER physician. Patient opens eyes to name, has very short attention span, falls back to sleep quickly, ROS does not able in detail. Patient denied chest pain/sore throat/cough/abdominal pain. Patient denied numbness or tingling. I tried to call Alan who is listed as primary contact twice and left voicemail once, I could not connect. Per ER physician they also couldn't connect when they called twice. Pt was able to cooperate some for exam. Medications reviewed from recent discharge summary. Full code until meaningful communication can happen with the patient or family. Discharge Exam Gen: A&O 3 NAD HEENT: NCAT, EOMI, not icteric. External ears normal. No rhinorrhea. Moist mucous membranes. Neck: Supple, full range of motion, no observable masses, No meningeal sign. Lungs: No Respiratory distress. CV: RRR, no edema. Abdomen: Soft, nondistended, No rebound tenderness. MSK: No joint swelling, no redness. Skin: No rashes, petechiae, lesions. Normal color per patient. Neuro: Normal Gait, Grossly intact. Psych: Appropriate for situation. Updated Medication List Medication Instructions Recorded Confirmed Type aspirin 81 mg tablet,delayed 81 mg PO QAM 04/24/25 06/18/25 History release cholecalciferol (vitamin D3) 25 25 mcg PO DAILY 04/24/25 06/18/25 History mcg (1,000 unit) tablet (Vitamin D3) ferric citrate 210 mg iron tablet 1 tab PO TIDM 04/24/25 06/18/25 History (Auryxia) gabapentin 300 mg capsule 300 mg PO QPM 04/24/25 06/18/25 History insulin glargine 100 unit/mL (3 10 unit subcut HS 04/24/25 06/18/25 History mL) subcutaneous pen (Lantus Solostar U-100 Insulin) lorazepam 0.5 mg tablet 0.25 mg PO BID PRN Anxiety 04/24/25 06/18/25 History mesalamine 800 mg tablet,delayed 800 mg PO TID 04/24/25 06/18/25 History release midodrine 10 mg tablet 20 mg PO UD 04/24/25 06/18/25 History omeprazole 20 mg capsule,delayed 20 mg PO QAM 04/24/25 06/18/25 History release ranolazine 500 mg tablet,extended 500 mg PO BID 04/24/25 06/18/25 History release,12 hr rifaximin 550 mg tablet (Xifaxan) 550 mg PO BID 04/24/25 06/18/25 History ropinirole 3 mg tablet 3 mg PO BID 04/24/25 06/18/25 History sacubitril 24 mg-valsartan 26 mg 1 tab PO AMHS 04/24/25 06/18/25 History tablet (Entresto) sertraline 100 mg tablet 100 mg PO HS 04/24/25 06/18/25 History simvastatin 20 mg tablet 20 mg PO HS 04/24/25 06/18/25 History vitamin B complex-vitamin C-folic 1 tab PO DAILY 04/24/25 06/18/25 History acid 0.8 mg tablet lactulose 10 gram oral packet 300 ml NH Q6H PRN encephalopathy 06/19/25 Rx #30 ea Hospital Stay Data Consultations 06/17/25 18:18 ED Decision to Admit Stat 06/17/25 18:28 Consult Nephrology Routine Diagnostic Imagining Performed 06/17/25 15:07 CT head/brain wo con Stat Pending Results Patient Have Any Pending Studies at Discharge: No Discharge Instructions Given to Patient (Per Discharging Provider) Diagnosis: metabolic encephalopathy, ESRD, cirrhosis Follow Ups: PCP, GI, nephrology 1. Please take medications as prescribed. 2. Please do not miss dialysis sessions! Total Time Total Time Spent Total Time Spent (In Minutes): I spent a total of 35 minutes in direct patient care, including [id number] time with the patient and/or family, reviewing medical records, ordering and reviewing diagnostic tests, and coordinating care with other healthcare providers. This time includes: history taking, physical examination, medical decision making, counseling, ECG interpretation, imaging interpretation, lab interpretation, orders, and education, excluding time spent in the performance of separately billed services.
--- NOTE | 2025-06-20 18:36 | Electrocardiogram Report ---
Test Reason : Blood Pressure : */* mmHG Vent. Rate : 64 BPM Atrial Rate : 64 BPM P-R Int : 240 ms QRS Dur : 136 ms QT Int : 516 ms P-R-T Axes : -80 -37 81 degrees QTcB Int : 532 ms Unusual P axis, possible ectopic atrial rhythm Left axis deviation Non-specific intra-ventricular conduction block Minimal voltage criteria for LVH, may be normal variant ( Preston product ) Abnormal ECG When compared with ECG of 29-May-2025 14:53, Ectopic atrial rhythm has replaced Sinus rhythm Confirmed by Freddie Macario ([id number]) on 06/20/2025 6:36:46 PM Referred By: Confirmed By: Freddie Macario
== END 2025-06-19 16:15 | disposition home or self-care (01) | DRG 70 ==
LOC: ED 14:47 → 2S 18:18 → SUATTDRO 18:18 → 2S 20:51
DX: Z87.19 Personal history of other diseases of the digestive system; N18.6 End stage renal disease; Z86.73 Personal history of transient ischemic attack (TIA), and cerebral infarction without residual deficits; I50.9 Heart failure, unspecified; Z88.2 Allergy status to sulfonamides; Z88.1 Allergy status to other antibiotic agents; E11.42 Type 2 diabetes mellitus with diabetic polyneuropathy; Z79.4 Long term (current) use of insulin; F17.210 Nicotine dependence, cigarettes, uncomplicated; K21.9 Gastro-esophageal reflux disease without esophagitis; Z79.899 Other long term (current) drug therapy; K75.81 Nonalcoholic steatohepatitis (NASH); N39.0 Urinary tract infection, site not specified; G93.40 Encephalopathy, unspecified; I95.9 Hypotension, unspecified; Z95.5 Presence of coronary angioplasty implant and graft; Z99.2 Dependence on renal dialysis; I87.2 Venous insufficiency (chronic) (peripheral); Z79.82 Long term (current) use of aspirin; G25.81 Restless legs syndrome; K74.69 Other cirrhosis of liver; F32.A Depression, unspecified; Z88.8 Allergy status to other drugs, medicaments and biological substances; D64.9 Anemia, unspecified; I13.2 Hypertensive heart and chronic kidney disease with heart failure and with stage 5 chronic kidney disease, or end stage renal disease; I25.10 Atherosclerotic heart disease of native coronary artery without angina pectoris

== ENCOUNTER 2025-06-24 18:47 | Inpatient (IN) ==
--- NOTE | 2025-06-24 18:59 | Emergency Department Note ---
Impression & Plan Acute hyperkalemia, Acute encephalopathy, ESRD on dialysis, Pancytopenia, Hyperammonemia ED Provider Note NAME: RICCI ESCOBAR AGE: 65 SEX: F : 1960 ARRIVES VIA: Ambulance INFORMANT: Patient, ED PROVIDER(S): Torrey Virgen MD CHIEF COMPLAINT: Weakness MEDICAL DECISION MAKING: Patient presents for weakness. IV was established and blood work was obtained along with a chest x-ray. The patient with leukopenia and anemia and thrombocytopenia. The patient's kidney function with a creat of 8.1. Potassium elevated 5.6. No significant EKG changes compared to prior. Pneumonia is pending. The patient's chest x-ray shows some vascular prominence. Patient was ordered IV insulin and dextrose as well as at 250 of IV fluids as the patient was noted to be hypotensive with a blood pressure of 107/33. This patient has also not gotten the last 2 dialysis sessions to be the patient would benefit from admission. I did speak the on-call hospitalist Dr. Alcantara and the patient was admitted to the medicine service. Critical Care: I have personally spent 46 minutes of critical care time in direct management of this patient. This includes bedside care, interpretation of diagnostic studies, and testing, discussion with consultants, patient, and family members, and other require inpatient management activities. This 46 minutes is in excess of all separately billable procedures. Discussion w/ other healthcare providers: Dr. Alcantara inpatient medicine service Prior /Outside records reviewed: I reviewed part of a discharge summary from Dr. Celaya from June 19. Known history of ESRD on HD Vasu Tuesday CAD status post stent CHF hypotension on midodrine type 2 diabetes MASH cirrhosis GERD chronic anemia history of ischemic colitis basal ganglia stroke depression restless legs who presented for lethargy and confusion after dialysis. Patient's ammonia was normal possible UTI. Thought to be multifactorial in the setting of fluid shifts cirrhosis and neuro psychotropic medications. Patient had been placed on daptomycin. Patient reportedly improved with lactulose and dialysis. Differential diagnosis: Infection, dehydration, metabolic abnormality, hypo/hyperglycemia, electrolyte imbalance, anemia, UTI, pneumonia, thyroid dysfunction among others were considered. Diagnostics, as interpreted by me: ECG: Sinus with first-degree AV block, rate of 67 prolonged MA wide QRS, left axis deviation Q waves noted anteriorly. No significant change for comparison EKG completed October 15, 2024. Cardiac monitoring: An order was placed for continuous cardiac monitoring. The monitor shows a rate of 69 with sinus rhythm. Patient was placed on pulse oximetry Medical decision rules: None Imaging studies: I informally interpreted the patient's chest x-ray does not show evidence of obvious pneumonia with formal report to follow. HPI: Patient presents due to concern for weakness. Patient reportedly does not have the last 2 dialysis sessions. She reports that she last was dialyzed when she was inpatient here in hospital. Patient states that she follows with Dr. Gomes. She reports that she believes she took her medications this morning. Reportedly was having some occasional shakes but denies any fevers or chills. Patient denies any falls or trauma. No urinary symptoms. She has had some occasional diarrhea but no vomiting. She did not denies any abdominal pain or chest pain. No cough. She reportedly was able to walk at home and so her family called to bring her in. She still does make some urine. 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 PAST MEDICAL HISTORY: See Below PAST SURGICAL HISTORY: See Below SOCIAL HISTORY: See Below HOME MEDICATIONS: See Below ALLERGIES: See Below VITALS: See Below PHYSICAL EXAMINATION: GENERAL: NAD, non-toxic. Wearing glasses. EYE EXAM: Normal conjunctiva. PERRL, no anisocoria and EOM's grossly intact w/o pain. OROPHARYNX: Moist mucus membranes, grossly normal dentition. NECK: Trachea midline, no stridor. LUNGS: Clear to auscultation. Normal chest wall mechanics. HEART: NSR, systolic ejection murmur noted. ABDOMEN: Abdomen soft, non-tender, no masses, no rebound or guarding. BACK: No CVA TTP. SKIN: No rashes and no bruising. UPPER EXTREMITIES: Upper extremities are grossly normal. LOWER EXTREMITIES: Chronic venous stasis changes. NEURO EXAM: Awake and alert, follows commands, no obvious facial asymmetry, normal speech, moves all 4 extremities. Past Med/Surg History Problem List (Updated 06/24/25 @ 22:42 by Torrey Virgen MD) Hyperammonemia (Acute) Acute hyperkalemia (Acute) Pancytopenia (Acute) ESRD on dialysis (Acute) Acute encephalopathy (Acute) Cirrhosis Chronic hypotension Insulin-requiring or dependent type II diabetes mellitus (Acute) Volume overload Pancytopenia ESRD (end stage renal disease) on dialysis (Acute) Encephalopathy (Acute) Medical History Ischemic colitis CHF (congestive heart failure) Essential hypertension Dyslipidemia Chronic anemia Metabolic dysfunction-associated steatohepatitis (MASH) CAD (coronary artery disease) Surgical History History of tympanoplasty History of hernia repair History of hysterectomy Hx of heart artery stent Family History Other Diabetes Heart disease Social History Smoking Status: Current every day smoker Tobacco Type: Cigarettes Cigarettes Per Day: a "couple" daily; Second Hand Exposure: Yes; Do You Dip or Chew Tobacco: No; Hx Alcohol Use: No Hx Substance Use: No Preferred Language: Romanian Communication Ability: Effective Superintendent Logging Required: No Beliefs That Will Affect Care: None Current Living Situation: Spouse Current Living Situation Comment: and son Other Information That Helps Us Care for You: No Feels Safe at Home: Yes Safety Concerns: Feels Safe At This Time Assistive Devices: Denture - Upper, Denture - Lower, Glasses and Walker Allergies Allergies Allergy/AdvReac Type Severity Reaction Status Date / Time atorvastatin [From Lipitor] Allergy Unknown Verified 06/24/25 19:27 cephalexin [From Keflex] Allergy itchy/vomit Verified 06/24/25 19:27 ing Sulfa (Sulfonamide Allergy Unknown Verified 06/24/25 19:27 Antibiotics) Home Meds Home Medications Medication Instructions Recorded Confirmed aspirin 81 mg tablet,delayed 81 mg PO QAM 04/24/25 06/24/25 release cholecalciferol (vitamin D3) 25 25 mcg PO DAILY 04/24/25 06/24/25 mcg (1,000 unit) tablet (Vitamin D3) ferric citrate 210 mg iron tablet 1 tab PO TIDM 04/24/25 06/24/25 (Auryxia) gabapentin 300 mg capsule 300 mg PO QPM 04/24/25 06/24/25 insulin glargine 100 unit/mL (3 10 unit subcut HS 04/24/25 06/24/25 mL) subcutaneous pen (Lantus Solostar U-100 Insulin) lorazepam 0.5 mg tablet 0.25 mg PO BID PRN Anxiety 04/24/25 06/24/25 mesalamine 800 mg tablet,delayed 800 mg PO TID 04/24/25 06/24/25 release midodrine 10 mg tablet 20 mg PO UD 04/24/25 06/24/25 omeprazole 20 mg capsule,delayed 20 mg PO QAM 04/24/25 06/24/25 release ranolazine 500 mg tablet,extended 500 mg PO BID 04/24/25 06/24/25 release,12 hr rifaximin 550 mg tablet (Xifaxan) 550 mg PO BID 04/24/25 06/24/25 ropinirole 3 mg tablet 3 mg PO BID 04/24/25 06/24/25 sacubitril 24 mg-valsartan 26 mg 1 tab PO AMHS 04/24/25 06/24/25 tablet (Entresto) sertraline 100 mg tablet 100 mg PO HS 04/24/25 06/24/25 simvastatin 20 mg tablet 20 mg PO HS 04/24/25 06/24/25 vitamin B complex-vitamin C-folic 1 tab PO DAILY 04/24/25 06/24/25 acid 0.8 mg tablet metoprolol succinate 50 mg 50 mg PO DAILY 06/24/25 06/24/25 tablet,extended release 24 hr mometasone 0.1 % topical cream 1 applic topical DAILY PRN 06/24/25 06/24/25 PSORIASIS ON FOREHEAD, RIGHT ELBOW, & KNEE Results & Data (ED) Vital Signs Vital Signs - 24 hr 06/24/25 19:00 06/24/25 19:02 06/24/25 19:03 Temperature 36.6 C Temperature Source Oral Pulse Rate 46 L 50 L 51 L Pulse Rate from SpO2 Sensor 63 Respiratory Rate 18 23 Respiratory Effort / Characteristics Non-Labored Spontaneous Respiratory Depth Normal Respiratory Pattern Regular Blood Pressure 107/33 L 107/33 L Blood Pressure Mean 57 57 Pulse Oximetry 99 78 L Oxygen Delivery Method Room Air Sepsis Recent Fever Within 48 Hours No Sepsis New/Unexplained Change in Mental Status N/A Sepsis Action Taken by Nursing No Action Required 06/24/25 19:30 06/24/25 20:00 06/24/25 20:30 Temperature Temperature Source Pulse Rate 73 53 L 52 L Pulse Rate from SpO2 Sensor Respiratory Rate 22 23 18 Respiratory Effort / Characteristics Respiratory Depth Respiratory Pattern Blood Pressure 115/61 114/64 124/69 Blood Pressure Mean 79 80 87 Pulse Oximetry Oxygen Delivery Method Sepsis Recent Fever Within 48 Hours Sepsis New/Unexplained Change in Mental Status Sepsis Action Taken by Nursing 06/24/25 20:30 Temperature Temperature Source Pulse Rate Pulse Rate from SpO2 Sensor Respiratory Rate Respiratory Effort / Characteristics Respiratory Depth Respiratory Pattern Blood Pressure 124/69 Blood Pressure Mean 86 Pulse Oximetry Oxygen Delivery Method Sepsis Recent Fever Within 48 Hours Sepsis New/Unexplained Change in Mental Status Sepsis Action Taken by Custodial Medications Current Medication List: was personally reviewed by me Laboratory Data Attestation: I reviewed the patient's lab results. 06/24/25 18:56 06/24/25 18:56 Lab Results 06/24/25 06/24/25 06/24/25 Range/Units 18:56 19:17 20:30 WBC 4.15 L (4.8-10.8) K/ul RBC 2.92 L (4.20-5.40) M/uL Hgb 9.2 L (12.0-16.0) g/dL POC Hgb 9.9 L (12.0-16.0) g/dl Hct 28.9 L (37.0-47.0) % POC Hct 29 L (37-47) % MCV 99.0 (80.0-100.0) fL MCH 31.5 (25.0-34.0) pg MCHC 31.8 L (32.0-36.0) g/dL RDW Std Deviation 59.6 H (36.4-46.3) fL RDW Coeff of Danette 16.6 H (11.5-14.5) % Plt Count 76 L (130-400) K/uL MPV 12.2 (9.4-12.4) fL Immature Gran % (Auto) 0.5 % Neut % (Auto) 84.8 % Lymph % (Auto) 8.4 % [place] % (Auto) 5.1 % Eos % (Auto) 1.0 % Baso % (Auto) 0.2 % Neut # (Auto) 3.52 (1.40-6.50) K/uL Lymph # (Auto) 0.35 L (1.20-3.40) K/uL [place] # (Auto) 0.21 (0.11-0.59) K/uL Eos # (Auto) 0.04 (0.00-0.50) K/uL Baso # (Auto) 0.01 (0.00-0.20) K/uL Immature Gran # (Auto) 0.02 (0.01-0.20) K/uL POC Sodium 135 (135-144) mmol/L Sodium 134 L (136-145) mmol/L POC Potassium 5.6 H (3.3-5.0) mmol/L Potassium 5.6 H (3.5-5.1) mmol/L POC Chloride 102 (101-112) mmol/L Chloride 100 (98-107) mmol/L Carbon Dioxide 19 L (21-32) mmol/L POC Total CO2 19 L (24-31) mmol/L Anion Gap 15 H (3-11) POC Anion Gap 21.0 (16-25) mmol/L POC BUN 85 H (7-18) mg/dl BUN 76 H (6-23) mg/dl Creatinine 8.19 H* (0.6-1.2) mg/dl POC Creatinine 8.9 H* (0.6-1.3) mg/dl Est Cr Clr Drug Dosing 9.2 ml/min eGFR 5.01 BUN/Creatinine Ratio 9.3 L (10-20) Glucose 223 H (70-99(Fasting)) mg/dl POC Glucose (other) 215 H (70-99) mg/dl Calcium 8.3 L (8.6-10.3) mg/dl POC Ioniz Calcium Norberto 0.98 L (1.12-1.32) mmol/l Magnesium 2.7 H (1.7-2.4) mg/dl Total Bilirubin 1.0 (0.2-1.0) mg/dl AST 26 (13-39) U/L ALT 12 (7-52) U/L Alkaline Phosphatase 152 H (34-104) U/L Ammonia 104.0 H (18-72) umol/L Total Protein 7.2 (6.0-8.3) gm/dl Albumin 3.0 L (3.4-5.0) gm/dl Globulin 4.2 H (2.5-4.0) gm/dl Albumin/Globulin Ratio 0.7 L (0.9-2) TSH 1.334 (0.300-4.500) uIu/ml Administered Medications Discontinued Medications Dextrose (Dextrose 50% 50 Ml Syringe) 50 ml IV NOW ONE Stop: 06/24/25 20:26 Last Admin: 06/24/25 21:02 Dose: 50 ml Documented By: JULIETA Calcium Gluconate () 1,000 mg in 60 mls @ 240 mls/hr IV NOW STA Stop: 06/24/25 20:39 Last Infusion: 06/24/25 21:14 Dose: Infused Documented By: Admin: 06/24/25 20:43 Dose: 240 mls/hr Documented By: JULIETA Sodium Chloride (Nss) 250 mls @ 999 mls/hr IV .Q16M ONE Stop: 06/24/25 20:42 Last Infusion: 06/24/25 21:20 Dose: Infused Documented By: Admin: 06/24/25 21:02 Dose: 999 mls/hr Documented By: JULIETA Insulin Human Regular (Novolin-R Insulin Per Unit Charge) 10 units IV NOW STA Stop: 06/24/25 20:26 Last Admin: 06/24/25 21:02 Dose: 10 units Documented By: JULIETA Co-signed By: KENZIE Sodium Bicarbonate (Sodium Bicarb 8.4% Inj 50 Meq/50 Ml Syr) 50 meq IV NOW STA Stop: 06/24/25 20:37 Last Admin: 06/24/25 21:03 Dose: 50 meq Documented By: JULIETA Imaging Data Radiologist's Impression: Chest X-Ray 06/24/25 19:07 Exam(s): XR CXR 1 VIEW EXAM: XR Chest, 1 View CLINICAL HISTORY: Reason for exam: weakness. TECHNIQUE: Frontal view of the chest. Limited due to body habitus. COMPARISON: Chest x-ray 06/17/2025. FINDINGS: Lungs/Pleural space: Mild vascular prominence, stable, nonspecific, maybe chronic, mild CHF not excluded. No focal infiltrate, pleural effusion, pneumothorax, or interval change. Heart: Stable, moderate cardiomegaly. Mediastinum: Atherosclerotic aortic knob, stable. Bones/Soft Tissues: No acute abnormality. IMPRESSION: 1. Stable cardiomegaly and vascular prominence, likely CHF. 2. No significant interval change or focal infiltrate/effusion. Electronically signed by: Nkechi Mcdowell M.D. 06/24/25 21:48 PM Discharge Plan Visit Data Chief Complaint: Weakness Stated Complaint: WEAKNESS ED Provider: Torrey Virgen Discharge Problem: Acute hyperkalemia, Acute encephalopathy, ESRD on dialysis, Pancytopenia, Hyperammonemia Patient Disposition: Admitted As Inpatient Condition: Good Discharge Instructions Interventions: ED Discharge Assessment Last Done: 06/24/25 21:34
[2025-06-24 19:21] LABS: Hematocrit (blood only) 28.9 % (37.0-47.0); Hemoglobin 9.2 g/dL (12.0-16.0); Immature Granulocytes # (auto) 0.02 K/uL (0.01-0.20); Immature Granulocytes % (auto) 0.5 %; Mean Corpuscular Hemoglobin 31.5 pg (25.0-34.0); Mean Corpuscular Volume 99.0 fL (80.0-100.0); Platelet Count 76 K/uL (130-400); RDW Standard Deviation 59.6 fL (36.4-46.3); Red Blood Count 2.92 M/uL (4.20-5.40); White Blood Count 4.15 K/ul (4.8-10.8)
[2025-06-24 19:48] LABS: Alanine Aminotransferase 12.0 U/L (7-52); Albumin Globulin Ratio 0.7 (0.9-2); Albumin Level 3.0 gm/dl (3.4-5.0); Alkaline Phosphatase 152.0 U/L (34-104); Anion Gap 15.0 (3-11); Bilirubin,Total 1.0 mg/dl (0.2-1.0); Blood Urea Nitrogen 76.0 mg/dl (6-23); Calcium 8.3 mg/dl (8.6-10.3); Carbon Dioxide 19.0 mmol/L (21-32); Chloride 100.0 mmol/L (98-107); Creatinine Clr Calc Pharmacy 9.2 ml/min; Globulin 4.2 gm/dl (2.5-4.0); Glucose 223.0 mg/dl (70-99(Fasting)); Magnesium 2.7 mg/dl (1.7-2.4); Potassium 5.6 mmol/L (3.5-5.1); Sodium 134.0 mmol/L (136-145); Total Protein 7.2 gm/dl (6.0-8.3)
[2025-06-24 19:58] LABS: Thyroid Stimulating Hormone 1.334 uIu/ml (0.300-4.500)
--- NOTE | 2025-06-24 20:40 | History & Physical Report ---
Date of Service June 24, 2025 Assessment & Plan (1) Acute encephalopathy: Plan: Assessment and plan below following discussion of case with ED provider and reviewing patient history/pertinent normal/abnormal diagnostic test results. Encephalopathy: Plan: Assessment and plan below following discussion of case with ED provider and reviewing patient history/pertinent normal/abnormal diagnostic test results. Encephalopathy Multifactorial Hepatic encephalopathy, history MASLD cirrhosis Rule out UTI Home neuropsychotropic medications contributory Hyperkalemia, ESRD on HD, secondary to missed hemodialysis CHF, pulmonary congestion on imaging hx CAD status post stent hypertension, BP on the lower side, patient on midodrine hyperlipidemia, on statin Rx DM2 insulin requiring, well-controlled as of recent hemoglobin A1c of 6.01 April 2025 chronic pancytopenia secondary to liver disease, hemoglobin at baseline Recurrent admissions, possible functional disability past tobacco use Admit to med/tele Lactulose Facilitate rifaximin GI consult re: hepatic encephalopathy Check UA Hold neuropsychotropic medications for now until patient mentation back to baseline Bicarb bolus for hyperkalemia, recheck serum potassium Nephrology consult re: dialysis management ISS BG goal 110-140, carb count coverage PT OT eval once more awake DVT prophylaxis. SCDs Re: Thrombocytopenia Full code Attempted to contact patient's family to obtain additional history and to discuss plan of care. No answer, left message for call back. Mr. Alan Hillman (), contact #[phone]. Mr. Alan HillmanJr. (son), contact #[phone]. Text document was generated using [employer]okee voice recognition software. It may contain grammatical or spelling errors. Kindly contact undersigned for clarification of any documentation item in question. History of Present Illness Chief Complaint: Weakness Primary Care Provider: Sina Pena History obtained from patient and records. Patient is a fair historian. Medical history significant for CHF, CAD status post stent, hypertension, hypotension on midodrine, hyperlipidemia, ESRD on HD, DM2 insulin requiring, MASLD cirrhosis, GERD, history of ischemic colitis as per records, chronic pancytopenia (baseline hemoglobin of 9-11), mood disorder, past tobacco use. Monthly [facility] admissions since April,. Recent confinement last week for multifactorial encephalopathy. Patient not feeling well today. Could not go for dialysis due to generalized weakness. Denies headache, chest pain, cough or unusual SOB. Denies abdominal pain or bleeding symptoms. Dysuria symptoms. Urine noted to be foul-smelling at home. Usual bilateral leg pain complaints. Lowest SBP of 90s documented at the ER. 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 Allergies Allergy/AdvReac Type Severity Reaction Status Date / Time atorvastatin [From Lipitor] Allergy Unknown Verified 06/24/25 19:27 cephalexin [From Keflex] Allergy itchy/vomit Verified 06/24/25 19:27 ing Sulfa (Sulfonamide Allergy Unknown Verified 06/24/25 19:27 Antibiotics) Home Medications Medication Instructions Recorded Confirmed Type aspirin 81 mg tablet,delayed 81 mg PO QAM 04/24/25 06/24/25 History release cholecalciferol (vitamin D3) 25 25 mcg PO DAILY 04/24/25 06/24/25 History mcg (1,000 unit) tablet (Vitamin D3) ferric citrate 210 mg iron tablet 1 tab PO TIDM 04/24/25 06/24/25 History (Auryxia) gabapentin 300 mg capsule 300 mg PO QPM 04/24/25 06/24/25 History insulin glargine 100 unit/mL (3 10 unit subcut HS 04/24/25 06/24/25 History mL) subcutaneous pen (Lantus Solostar U-100 Insulin) lorazepam 0.5 mg tablet 0.25 mg PO BID PRN Anxiety 04/24/25 06/24/25 History mesalamine 800 mg tablet,delayed 800 mg PO TID 04/24/25 06/24/25 History release midodrine 10 mg tablet 20 mg PO UD 04/24/25 06/24/25 History omeprazole 20 mg capsule,delayed 20 mg PO QAM 04/24/25 06/24/25 History release ranolazine 500 mg tablet,extended 500 mg PO BID 04/24/25 06/24/25 History release,12 hr rifaximin 550 mg tablet (Xifaxan) 550 mg PO BID 04/24/25 06/24/25 History ropinirole 3 mg tablet 3 mg PO BID 04/24/25 06/24/25 History sacubitril 24 mg-valsartan 26 mg 1 tab PO AMHS 04/24/25 06/24/25 History tablet (Entresto) sertraline 100 mg tablet 100 mg PO HS 04/24/25 06/24/25 History simvastatin 20 mg tablet 20 mg PO HS 04/24/25 06/24/25 History vitamin B complex-vitamin C-folic 1 tab PO DAILY 04/24/25 06/24/25 History acid 0.8 mg tablet metoprolol succinate 50 mg 50 mg PO DAILY 06/24/25 06/24/25 History tablet,extended release 24 hr mometasone 0.1 % topical cream 1 applic topical DAILY PRN 06/24/25 06/24/25 History PSORIASIS ON FOREHEAD, RIGHT ELBOW, & KNEE Past Med/Surg History Problem List Pancytopenia (Acute) ESRD on dialysis (Acute) Acute encephalopathy (Acute) Cirrhosis Chronic hypotension Insulin-requiring or dependent type II diabetes mellitus (Acute) Volume overload Pancytopenia ESRD (end stage renal disease) on dialysis (Acute) Encephalopathy (Acute) Medical History Ischemic colitis CHF (congestive heart failure) Essential hypertension Dyslipidemia Chronic anemia Metabolic dysfunction-associated steatohepatitis (MASH) CAD (coronary artery disease) Surgical History History of tympanoplasty History of hernia repair History of hysterectomy Hx of heart artery stent Family History Other Diabetes Heart disease Social History Smoking Status: Current every day smoker Tobacco Type: Cigarettes Cigarettes Per Day: a "couple" daily; Second Hand Exposure: Yes; Do You Dip or Chew Tobacco: No; Hx Alcohol Use: No Hx Substance Use: No Preferred Language: Serbian Communication Ability: Effective Darkroom Worker Required: No Beliefs That Will Affect Care: None Current Living Situation: Spouse Current Living Situation Comment: and son Feels Safe at Home: Yes Assistive Devices: Walker Review of Systems Review of Systems: As per HPI, all other systems reviewed and negative Physical Exam Physical Exam: GENERAL: Lethargic, obese, no respiratory distress SKIN: Pallor, warm HEENT: Bespectacled, pale palpebral conjunctivae, no ptosis, dry buccal mucosa NECK : Supple, short neck, no tenderness CHEST : Decreased breath sounds, no tenderness HEART : Bradycardic, no obvious murmurs ABDOMEN: Some distention, nontender EXTREMITIES : Bilateral LE venous stasis, palpable pulses, no other conspicuous deformities noted NEUROLOGIC : Lethargic, no facial asymmetry, gait and stance not assessed Results & Data Results & Data Vital Signs (Past 12 Hours) Vital Signs Temp Pulse Resp BP Pulse Ox O2 Del Method 06/24/25 19:02 50 L 06/24/25 19:00 36.6 C 46 L 18 107/33 L 99 Room Air Laboratory Results Laboratory Results WBC 4.15 K/ul (4.8-10.8) L 06/24/25 18:56 RBC 2.92 M/uL (4.20-5.40) L 06/24/25 18:56 Hgb 9.2 g/dL (12.0-16.0) L 06/24/25 18:56 POC Hgb 9.9 g/dl (12.0-16.0) L 06/24/25 19:17 Hct 28.9 % (37.0-47.0) L 06/24/25 18:56 POC Hct 29 % (37-47) L 06/24/25 19:17 MCV 99.0 fL (80.0-100.0) 06/24/25 18:56 MCH 31.5 pg (25.0-34.0) 06/24/25 18:56 MCHC 31.8 g/dL (32.0-36.0) L 06/24/25 18:56 RDW Std Deviation 59.6 fL (36.4-46.3) H 06/24/25 18:56 RDW Coeff of Danette 16.6 % (11.5-14.5) H 06/24/25 18:56 Plt Count 76 K/uL (130-400) L 06/24/25 18:56 MPV 12.2 fL (9.4-12.4) 06/24/25 18:56 Immature Gran % (Auto) 0.5 % 06/24/25 18:56 Neut % (Auto) 84.8 % 06/24/25 18:56 Lymph % (Auto) 8.4 % 06/24/25 18:56 [place]ion % (Auto) 5.1 % 06/24/25 18:56 Eos % (Auto) 1.0 % 06/24/25 18:56 Baso % (Auto) 0.2 % 06/24/25 18:56 Neut # (Auto) 3.52 K/uL (1.40-6.50) 06/24/25 18:56 Lymph # (Auto) 0.35 K/uL (1.20-3.40) L 06/24/25 18:56 Clarion # (Auto) 0.21 K/uL (0.11-0.59) 06/24/25 18:56 Eos # (Auto) 0.04 K/uL (0.00-0.50) 06/24/25 18:56 Baso # (Auto) 0.01 K/uL (0.00-0.20) 06/24/25 18:56 Immature Gran # (Auto) 0.02 K/uL (0.01-0.20) 06/24/25 18:56 POC Sodium 135 mmol/L (135-144) 06/24/25 19:17 Sodium 134 mmol/L (136-145) L 06/24/25 18:56 POC Potassium 5.6 mmol/L (3.3-5.0) H 06/24/25 19:17 Potassium 5.6 mmol/L (3.5-5.1) H 06/24/25 18:56 POC Chloride 102 mmol/L (101-112) 06/24/25 19:17 Chloride 100 mmol/L (98-107) 06/24/25 18:56 Carbon Dioxide 19 mmol/L (21-32) L 06/24/25 18:56 POC Total CO2 19 mmol/L (24-31) L 06/24/25 19:17 Anion Gap 15 (3-11) H 06/24/25 18:56 POC Anion Gap 21.0 mmol/L (16-25) 06/24/25 19:17 POC BUN 85 mg/dl (7-18) H 06/24/25 19:17 BUN 76 mg/dl (6-23) H 06/24/25 18:56 Creatinine 8.19 mg/dl (0.6-1.2) H* 06/24/25 18:56 POC Creatinine 8.9 mg/dl (0.6-1.3) H* 06/24/25 19:17 Est Cr Clr Drug Dosing 9.2 ml/min 06/24/25 18:56 eGFR 5.01 06/24/25 18:56 BUN/Creatinine Ratio 9.3 (10-20) L 06/24/25 18:56 Glucose 223 mg/dl (70-99(Fasting)) H 06/24/25 18:56 POC Glucose (other) 215 mg/dl (70-99) H 06/24/25 19:17 Calcium 8.3 mg/dl (8.6-10.3) L 06/24/25 18:56 POC Ioniz Calcium Norberto 0.98 mmol/l (1.12-1.32) L 06/24/25 19:17 Magnesium 2.7 mg/dl (1.7-2.4) H 06/24/25 18:56 Total Bilirubin 1.0 mg/dl (0.2-1.0) 06/24/25 18:56 AST 26 U/L (13-39) 06/24/25 18:56 ALT 12 U/L (7-52) 06/24/25 18:56 Alkaline Phosphatase 152 U/L (34-104) H 06/24/25 18:56 Total Protein 7.2 gm/dl (6.0-8.3) 06/24/25 18:56 Albumin 3.0 gm/dl (3.4-5.0) L 06/24/25 18:56 Globulin 4.2 gm/dl (2.5-4.0) H 06/24/25 18:56 Albumin/Globulin Ratio 0.7 (0.9-2) L 06/24/25 18:56 TSH 1.334 uIu/ml (0.300-4.500) 06/24/25 18:56 Diagnostic Findings Chest x-ray as per my interpretation cardiomegaly, minimal congestion
[2025-06-24] MEDS: CALCIUM GLUCONATE 1,000 MG/60 ML BAG IV STA (20:43)
[2025-06-24] MEDS ORDERED: PROMETHAZINE 6.25 MG/50.25 ML BAG IV PRN (20:59)
[2025-06-24] MEDS ORDERED: ACETAMINOPHEN 500 MG TAB PO PRN (20:59)
[2025-06-24] MEDS: DEXTROSE 50% 50 ML SYRINGE IV ONE (21:02)
[2025-06-24] MEDS: SODIUM CHLORIDE 0.9% 250 ML IV ONE (21:02)
[2025-06-24] MEDS: NovoLIN-R INSULIN PER UNIT CHARGE IV STA (21:02)
[2025-06-24] MEDS: SODIUM BICARB 8.4% INJ 50 MEQ/50 ML SYR IV STA (21:03)
--- NOTE | 2025-06-24 21:49 | XRay Report ---
Exam(s): XR CXR 1 VIEW EXAM: XR Chest, 1 View CLINICAL HISTORY: Reason for exam: weakness. TECHNIQUE: Frontal view of the chest. Limited due to body habitus. COMPARISON: Chest x-ray 06/17/2025. FINDINGS: Lungs/Pleural space: Mild vascular prominence, stable, nonspecific, maybe chronic, mild CHF not excluded. No focal infiltrate, pleural effusion, pneumothorax, or interval change. Heart: Stable, moderate cardiomegaly. Mediastinum: Atherosclerotic aortic knob, stable. Bones/Soft Tissues: No acute abnormality. IMPRESSION: 1. Stable cardiomegaly and vascular prominence, likely CHF. 2. No significant interval change or focal infiltrate/effusion. Electronically signed by: Nkechi Mcdowell M.D. 06/24/25 21:48 PM
[2025-06-24] MEDS ORDERED: CARBOHYDRATES FOR HYPOGLYCEMIA PO PRN (22:00)
[2025-06-24] MEDS ORDERED: GLUCAGON FOR INJ 1 MG VIAL SQ PRN (22:00)
[2025-06-24] MEDS ORDERED: GLUCOSE 40% GEL 15 GM TUBE PO PRN (22:00)
[2025-06-24] MEDS ORDERED: GLUCOSE 10 TAB/TUBE PO PRN (22:00)
[2025-06-24] MEDS ORDERED: DEXTROSE 50% 50 ML SYRINGE IV PRN (22:00)
[2025-06-24 22:20] LABS: Influenza A virus by PCR Negative (Neg); Influenza B virus by PCR Negative (Neg); SARS CoV2 RNA(COVID-19) Ceph NEGATIVE (Negative)
[2025-06-24] MEDS: LACTULOSE SYRUP 20 GM/30 ML UDC PO SCH (22:39)
[2025-06-24] MEDS: MESALAMINE 800 MG TABCR PO SCH (22:40)
[2025-06-24] MEDS: SIMVASTATIN 20 MG TAB PO SCH (22:41)
[2025-06-24] MEDS: MIDODRINE HCL 10 MG TAB PO STA (22:41)
[2025-06-24] MEDS: INSULIN ASPART PER UNIT CHARGE SC SCH (22:54)
[2025-06-25 00:23] LABS: Base Excess VBG -5.0 mEq/L; HCO3 VBG 21 mmol/L; Oxygen Saturation VBG 71.7 %; PCO2 VBG 42 mmHg (38-50); PO2 VBG 48 mmHg; pH VBG 7.31 (7.36-7.41)
--- NOTE | 2025-06-25 01:04 | Communication Note ---
Date of Service: June 25, 2025 Patient noted to have dark stools on bed linen. Hemoccult done at bedside negative Patient noted to have whitish vaginal discharge on UA collection as per RN. AP Ghada vaginitis Fluconazole 1 dose UA WBC esterase AP Complicated UTI Urine CS, Zosyn
[2025-06-25] MEDS: ALBUT/IPRATROP 3MG/0.5MG NEB 3 ML VIAL NEB STA ×2 (01:31→22:14)
[2025-06-25 01:37] LABS: Appearance Urine Clear (Clear); Bacteria Urine Automated 4+ (None Seen); Cast Urine Automated 0-2 /lpf (0-2); Glucose Urine UA Negative (Negative); RBC Urine Automated >20 /hpf (0-2); WBC Urine Automated >50 /hpf (0-5)
[2025-06-25] MEDS: FLUCONAZOLE 50 MG TAB PO ONE (02:13)
[2025-06-25] MEDS: ALBUMIN 25% 25 GM/100 ML VIAL IV ONE (02:13)
[2025-06-25] MEDS: PIPERACILLIN/TAZOBACTAM 4.5 GM/100 ML BAG IV ONE (02:34)
[2025-06-25 04:38] LABS: Anion Gap 15.0 (3-11); Blood Urea Nitrogen 81.0 mg/dl (6-23); Calcium 8.2 mg/dl (8.6-10.3); Carbon Dioxide 20.0 mmol/L (21-32); Chloride 101.0 mmol/L (98-107); Creatinine Clr Calc Pharmacy 8.1 ml/min; Glucose 159.0 mg/dl (70-99(Fasting)); Potassium 5.3 mmol/L (3.5-5.1); Sodium 136.0 mmol/L (136-145)
[2025-06-25 04:48] LABS: Hematocrit (blood only) 25.2 % (37.0-47.0); Hemoglobin 8.3 g/dL (12.0-16.0); Immature Granulocytes # (auto) 0.02 K/uL (0.01-0.20); Immature Granulocytes % (auto) 0.6 %; Mean Corpuscular Hemoglobin 32.4 pg (25.0-34.0); Mean Corpuscular Volume 98.4 fL (80.0-100.0); Platelet Count 61 K/uL (130-400); Polychromasia 1+; RDW Standard Deviation 59.9 fL (36.4-46.3); Red Blood Count 2.56 M/uL (4.20-5.40); White Blood Count 3.10 K/ul (4.8-10.8)
[2025-06-25] MEDS: LACTULOSE SYRUP 20 GM/30 ML UDC PO SCH (05:47)
[2025-06-25] MEDS: ASPIRIN 81 MG ECTAB PO SCH (08:05)
[2025-06-25] MEDS: VITAMIN B COMPLEX TAB PO SCH (08:06)
[2025-06-25] MEDS: MIDODRINE HCL 10 MG TAB PO SCH (08:06)
[2025-06-25] MEDS: ZINC SULFATE 220 MG CAPSULE PO SCH (09:04)
[2025-06-25] MEDS: SACCHAROMYCES BOULARDII 250 MG CAP PO SCH (09:06)
[2025-06-25] MEDS: LANTUS PER UNIT CHARGE SQ SCH (10:38)
[2025-06-25] MEDS: PIPERACILLIN/TAZOBACTAM 4.5 GM/100 ML BAG IV SCH (10:39)
[2025-06-25] MEDS ORDERED: SODIUM CHLORIDE 0.9% 1,000 ML IV PRN (12:29)
--- NOTE | 2025-06-25 13:02 | Electrocardiogram Report ---
Test Reason : Blood Pressure : */* mmHG Vent. Rate : 67 BPM Atrial Rate : 67 BPM P-R Int : 258 ms QRS Dur : 156 ms QT Int : 512 ms P-R-T Axes : * -51 49 degrees QTcB Int : 541 ms Sinus rhythm with 1st degree A-V block Left axis deviation Left bundle branch block Abnormal ECG When compared with ECG of 17-Jun-2025 15:00, Sinus rhythm has replaced Ectopic atrial rhythm T wave inversion no longer evident in Lateral leads Confirmed by Akin Skinner ([id number]) on 06/25/2025 1:02:27 PM Referred By: REFERRED SELF Confirmed By: Akin Skinner
--- NOTE | 2025-06-25 13:38 | Hospitalist Progress Note ---
Date of Service June 25, 2025 Assessment & Plan (1) Acute encephalopathy: Plan 65 yo female with pmhx of CHF, CAD status post stent, hypertension, hypotension on midodrine, hyperlipidemia, ESRD on HD, DM2 insulin requiring, MASLD cirrhosis, GERD, history of ischemic colitis as per records, chronic pancytopenia (baseline hemoglobin of 9-11), mood disorder, past tobacco use who presented for metabolic encephalopathy of multifactorial origin. #Hepatic/Uremic Encephalopathy #MASH Cirrhosis #ESRD (MWF) -patient has missed dialysis sessions -unclear reason for missing, patient has not been feeling well, hypotensive -appears chronically colonized urinary tract, has generalized weakness -needs dialysis today Plan: -nephrology consulted, appreciate recs -start lactulose 20 tid, continue rifaxamin, start zinc and probiotics for additional assistance with hepatic encephalopathy -will need dialysis today -will need PT/OT, consideration for placement given concern for failure to thrive at home -avoid anticholinergics -check B12, start folic acid/thiamine #Chronic anemia -Hemoglobin stable #Hypotension -continue midodrine #DM Type 2 -SSO #GERD -Continue omeprazole when able #CAD -Continue baby aspirin, statin, and ranolazine when able. #HFpEF -Continue Entresto #RLS -Continue ropinirole when able. #History of ischemic colitis Continue mesalamine when able to take po #Depression Continue sertraline when able I spent a total of 55 minutes in direct patient care, including [id number] time with the patient and/or family, reviewing medical records, ordering and reviewing diagnostic tests, and coordinating care with other healthcare providers. This time includes: history taking, physical examination, medical decision making, counseling, ECG interpretation, imaging interpretation, lab interpretation, orders, and education, excluding time spent in the performance of separately billed services. Admission and Anticipated Discharge Date Admission Date: June 24, 2025 Subjective Patient seen and examined at bedside. Patient alert and oriented to self, room, location, appears to be slightly confused. Patient feels slightly confused, has missed some dialysis sessions. Review of Systems Review of Systems: CONSTITUTIONAL: Patient denies fevers, chills, sweats and weight changes. EYES: Patient denies any visual symptoms. EARS, NOSE, AND THROAT: No difficulties with hearing. No symptoms of rhinitis or sore throat. CARDIOVASCULAR: Patient denies chest pains, palpitations, orthopnea and paroxysmal nocturnal dyspnea. RESPIRATORY: No dyspnea on exertion, no wheezing or cough. GI: some nausea : No urinary hesitancy or dribbling. No nocturia or urinary frequency. No abnormal urethral discharge. MUSCULOSKELETAL: No myalgias or arthralgias. NEUROLOGIC: confusion PSYCHIATRIC: Patient denies problems with mood disturbance. No problems with anxiety. ENDOCRINE: No excessive urination or excessive thirst. DERMATOLOGIC: Patient denies any rashes or skin changes. Physical Exam Physical Exam: Gen: A&O 3 NAD, appears fatigued HEENT: NCAT, EOMI, not icteric. External ears normal. No rhinorrhea. Moist mucous membranes. Neck: Supple, full range of motion, no observable masses, No meningeal sign. Lungs: No Respiratory distress. CV: RRR, no edema. Abdomen: Soft, nondistended, No rebound tenderness. MSK: chronic venous stasis in legs bilaterally lol Skin: No rashes, petechiae, lesions. Normal color per patient. Neuro: Normal Gait, Grossly intact. Asterixis noted Psych: slightly confused Results & Data Results & Data Vital Signs (Past 12 Hours) Vital Signs Temp Pulse Pulse Resp BP Pulse Ox O2 Del Method 06/25/25 11:39 36.9 C 52 L 19 113/56 L 95 Room Air 06/25/25 09:17 Room Air 06/25/25 07:50 36.9 C 53 L 18 99/44 L 95 Room Air 06/25/25 07:11 50 L 06/25/25 04:00 36.8 C 52 L 20 109/67 96 Room Air Laboratory Results -personally reviewed, Hgb downtrending could be dilutional due to volume overload, creatinine very high in setting of missed dialysis sessions, ammonia very high in setting of renal failure and liver failure, gamma gap noted Medications Administered Aspirin (Aspirin 81 Mg Ectab) 81 mg PO QAM [facility] Stop: 07/25/25 08:59 Last Admin: 06/25/25 08:05 Dose: 81 mg Documented By: LOIS Piperacillin Sod/Tazobactam Sod (Zosyn) 4.5 gm in 100 mls @ 25 mls/hr IV Q12H [facility]; Protocol Stop: 07/05/25 09:59 Last Admin: 06/25/25 10:39 Dose: 25 mls/hr Documented By: LOIS Insulin Aspart (Insulin Aspart Per Unit Charge) 0 units SC ACHS [facility] Stop: 07/24/25 21:59 Last Admin: 06/25/25 10:38 Dose: 2 units Documented By: LOIS Co-signed By: humberto Admin: 06/24/25 22:54 Dose: 2 units Documented By: SAHARA Co-signed By: EMILY Insulin Glargine (Lantus Per Unit Charge) 5 units SQ DAILY [facility] Stop: 07/25/25 08:59 Last Admin: 06/25/25 10:38 Dose: 5 units Documented By: LOIS Co-signed By: humberto Lactulose (Lactulose Syrup 20 Gm/30 Ml Udc) 20 gm PO TID [facility] Stop: 07/25/25 04:34 Last Admin: 06/25/25 05:47 Dose: 20 gm Documented By: SAHARA Mesalamine (Mesalamine 800 Mg Tabcr) 800 mg PO TID [facility] Stop: 07/24/25 22:14 Last Admin: 06/25/25 08:05 Dose: 800 mg Documented By: Admin: 06/24/25 22:40 Dose: 800 mg Documented By: SAHARA Miscellaneous (Auryxia--Order Awaiting Action) 1 each N/A QS [facility] Stop: 07/25/25 00:00 Last Admin: 06/25/25 08:14 Dose: Not Given Documented By: Admin: 06/25/25 01:31 Dose: Not Given Documented By: SAHARA Pantoprazole Sodium (Pantoprazole 40 Mg Tab) 40 mg PO QAM [facility]I Stop: 07/25/25 08:59 Last Admin: 06/25/25 08:05 Dose: 40 mg Documented By: LOIS Rifaximin (Rifaximin 550 Mg Tablet) 550 mg PO BID [facility] Stop: 07/24/25 20:59 Last Admin: 06/25/25 08:05 Dose: 550 mg Documented By: Admin: 06/24/25 22:40 Dose: 550 mg Documented By: SAHARA Saccharomyces Boulardii (Saccharomyces Boulardii 250 Mg Cap) 250 mg PO DAILY [facility] Stop: 07/25/25 08:59 Last Admin: 06/25/25 09:06 Dose: 250 mg Documented By: LOIS Simvastatin (Simvastatin 20 Mg Tab) 20 mg PO HS [facility]I Stop: 07/24/25 20:59 Last Admin: 06/24/25 22:41 Dose: 20 mg Documented By: SAHARA Vitamin B Complex (Vitamin B Complex Tab) 1 tab PO DAILY [facility] Stop: 07/25/25 08:59 Last Admin: 06/25/25 08:06 Dose: 1 tab Documented By: LOIS Zinc Sulfate (Zinc Sulfate 220 Mg Capsule) 220 mg PO QA [facility] Stop: 07/25/25 08:59 Last Admin: 06/25/25 09:04 Dose: 220 mg Documented By: LOIS
[2025-06-25] MEDS: LIDOCAINE 4% CREAM 15 GM TUBE EXT ONE (13:40)
--- NOTE | 2025-06-25 13:45 | Nephrology Consultation ---
Date of Consultation June 25, 2025 Assessment & Plan (1) ESRD on dialysis: Has Missed Dialysis few times. Now has highish K and also higher than usual BUN and creat. no resp distress and on RA so no overt S/s of fluid overload. will still try about 2-3 kilo off and do 4 hrs dialysis onn2 K bath. hgb low will give procrit 48854 Units. Will do Dialysis again tomorrow to bring her to normal Schedule--MWF. (2) Acute encephalopathy: Unclear cause. Had this just previous admission also and no clear cause found. Defer to Primary team and ? neurology. very likely metabolic encephalopathy is related with Cirrhosis and ESRD ( missed dialysis) Advised patient not to miss dialysis as this makes her more likely to have Acute metabolic encephalopathy. Check ammonia level--it is high. HD again tomorrow--maybe will help to some extent Plan time spent 46 mins History of Present Illness Reason for Consultation: ESRD on Dialysis Attending Physician: Juan Celaya MD History of Present Illness 65/F with ESRD on HD--MWF came to ED because of AMS. She has CHF, CAD status post stent, hypertension, hypotension on midodrine, hyperlipidemia, ESRD on HD, DM2 insulin requiring, MASLD cirrhosis, GERD, history of ischemic colitis as per records, chronic pancytopenia (baseline hemoglobin of 9-11), mood disorder, past tobacco use. Monthly [facility] admissions since April,. Recent admission last week was for multifactorial encephalopathy--no clear cause found and got better on own. Patient not feeling well today.Could not go for dialysis due to generalized weakness. She has missed last few dialysis sessions. Denies headache, chest pain, cough or unusual SOB. Denies abdominal pain or bleeding symptoms. Has some urinary symptoms.Urine noted to be foul-smelling at home. Usual bilateral leg pain complaints. Lowest SBP of 90s documented at the ER. But now is normal. Labs showed K of 5.5. CXR shows some CHF. Getting Dialysis now. ROS--12 Systems reviewed and negative Physical Exam Physical Exam: GENERAL: obese, no respiratory distress HEENT: pale NECK : Supple, no tenderness CHEST : Decreased breath sounds, no tenderness HEART : Bradycardic, no obvious murmurs ABDOMEN: Some distention, nontender EXTREMITIES : Bilateral LE venous stasis, palpable pulses, no other conspicuous deformities noted Allergies Allergy/AdvReac Type Severity Reaction Status Date / Time atorvastatin [From Lipitor] Allergy Unknown Verified 06/24/25 19:27 cephalexin [From Keflex] Allergy itchy/vomit Verified 06/24/25 19:27 ing Sulfa (Sulfonamide Allergy Unknown Verified 06/24/25 19:27 Antibiotics) Home Medications Medication Instructions Recorded Confirmed Type aspirin 81 mg tablet,delayed 81 mg PO QAM 04/24/25 06/24/25 History release cholecalciferol (vitamin D3) 25 25 mcg PO DAILY 04/24/25 06/24/25 History mcg (1,000 unit) tablet (Vitamin D3) ferric citrate 210 mg iron tablet 1 tab PO TIDM 04/24/25 06/24/25 History (Auryxia) gabapentin 300 mg capsule 300 mg PO QPM 04/24/25 06/24/25 History insulin glargine 100 unit/mL (3 10 unit subcut HS 04/24/25 06/24/25 History mL) subcutaneous pen (Lantus Solostar U-100 Insulin) lorazepam 0.5 mg tablet 0.25 mg PO BID PRN Anxiety 04/24/25 06/24/25 History mesalamine 800 mg tablet,delayed 800 mg PO TID 04/24/25 06/24/25 History release midodrine 10 mg tablet 20 mg PO UD 04/24/25 06/24/25 History omeprazole 20 mg capsule,delayed 20 mg PO QAM 04/24/25 06/24/25 History release ranolazine 500 mg tablet,extended 500 mg PO BID 04/24/25 06/24/25 History release,12 hr rifaximin 550 mg tablet (Xifaxan) 550 mg PO BID 04/24/25 06/24/25 History ropinirole 3 mg tablet 3 mg PO BID 04/24/25 06/24/25 History sacubitril 24 mg-valsartan 26 mg 1 tab PO AMHS 04/24/25 06/24/25 History tablet (Entresto) sertraline 100 mg tablet 100 mg PO HS 04/24/25 06/24/25 History simvastatin 20 mg tablet 20 mg PO HS 04/24/25 06/24/25 History vitamin B complex-vitamin C-folic 1 tab PO DAILY 04/24/25 06/24/25 History acid 0.8 mg tablet metoprolol succinate 50 mg 50 mg PO DAILY 06/24/25 06/24/25 History tablet,extended release 24 hr mometasone 0.1 % topical cream 1 applic topical DAILY PRN 06/24/25 06/24/25 History PSORIASIS ON FOREHEAD, RIGHT ELBOW, & KNEE Patient History Medical History Ischemic colitis CHF (congestive heart failure) Essential hypertension Dyslipidemia Chronic anemia Metabolic dysfunction-associated steatohepatitis (MASH) CAD (coronary artery disease) Surgical History History of tympanoplasty History of hernia repair History of hysterectomy Hx of heart artery stent Family History Other Diabetes Heart disease Social History Smoking Status: Current every day smoker Tobacco Type: Cigarettes Cigarettes Per Day: a "couple" daily; Second Hand Exposure: Yes; Do You Dip or Chew Tobacco: No; Hx Alcohol Use: No Hx Substance Use: No Preferred Language: Moroccan Communication Ability: Effective Firmware Manager Required: No Beliefs That Will Affect Care: None Current Living Situation: Spouse Current Living Situation Comment: and son Other Information That Helps Us Care for You: No Feels Safe at Home: Yes Safety Concerns: Feels Safe At This Time Assistive Devices: Denture - Upper, Denture - Lower, Glasses and Walker Results & Data Vital Signs (Past 12 Hours) Vital Signs Temp Pulse Pulse Resp BP Pulse Ox O2 Del Method 06/25/25 11:39 36.9 C 52 L 19 113/56 L 95 Room Air 06/25/25 09:17 Room Air 06/25/25 07:50 36.9 C 53 L 18 99/44 L 95 Room Air 06/25/25 07:11 50 L 06/25/25 04:00 36.8 C 52 L 20 109/67 96 Room Air Laboratory Results CBC and renal panel. Diagnostic Findings CXR--no CHF
[2025-06-25] MEDS: MIDODRINE HCL 10 MG TAB PO STA (13:49)
[2025-06-25] MEDS: EPOETIN ALFA 10,000 UNITS/ML VIAL IV ONE (15:29)
[2025-06-25] MEDS: cefTRIAXone SODIUM 2,000 MG/50 ML BAG IV SCH (21:19)
[2025-06-25] MEDS: LACTULOSE 200GM/700ML WTR ENEMA PR SCH (23:15)
[2025-06-25 23:32] LABS: Base Excess VBG 6.6 mEq/L; HCO3 VBG 29 mmol/L; Oxygen Saturation VBG 93.7 %; PCO2 VBG 34 mmHg (38-50); PO2 VBG 65 mmHg; pH VBG 7.54 (7.36-7.41)
--- NOTE | 2025-06-26 05:26 | XRay Report ---
Exam(s): XR CXR 1 VIEW EXAM: XR Chest, 1 View CLINICAL HISTORY: Low o2. TECHNIQUE: Frontal view of the chest. COMPARISON: Chest radiograph 06/24/2025 FINDINGS: Lungs: Bilateral airspace opacities are present. Pleural space: Unremarkable. No pneumothorax. Heart: Cardiomegaly. Mediastinum: Unremarkable. Normal mediastinal contour. Bones/joints: There are degenerative changes of the spine. No acute fracture. IMPRESSION: 1. Bilateral airspace opacities may represent pulmonary edema and/or atypical infection. 2. Cardiomegaly. Electronically signed by: Izabela Crockett MD 06/26/25 05:25 AM
[2025-06-26] MEDS ORDERED: SODIUM CHLORIDE 0.9% 1,000 ML IV PRN (07:00)
[2025-06-26 07:11] LABS: Hematocrit (blood only) 27.1 % (37.0-47.0); Hemoglobin 9.0 g/dL (12.0-16.0); Mean Corpuscular Hemoglobin 32.5 pg (25.0-34.0); Mean Corpuscular Volume 97.8 fL (80.0-100.0); Platelet Count 73 K/uL (130-400); RDW Standard Deviation 60.5 fL (36.4-46.3); Red Blood Count 2.77 M/uL (4.20-5.40); White Blood Count 4.12 K/ul (4.8-10.8)
[2025-06-26 07:33] LABS: Anion Gap 12.0 (3-11); Blood Urea Nitrogen 39.0 mg/dl (6-23); Calcium 8.3 mg/dl (8.6-10.3); Carbon Dioxide 29.0 mmol/L (21-32); Chloride 93.0 mmol/L (98-107); Creatinine Clr Calc Pharmacy 13.5 ml/min; Glucose 126.0 mg/dl (70-99(Fasting)); Magnesium 2.1 mg/dl (1.7-2.4); Potassium 4.0 mmol/L (3.5-5.1); Sodium 134.0 mmol/L (136-145)
[2025-06-26] MEDS: MIDODRINE HCL 10 MG TAB PO SCH ×2 (08:50→12:07)
[2025-06-26] MEDS ORDERED: PHA DELIRIUM CONSULT PRN (10:08)
[2025-06-26] MEDS: THIAMINE HCL 100 MG TAB PO SCH (10:12)
[2025-06-26] MEDS: FOLIC ACID 1 MG TAB PO SCH (10:12)
[2025-06-26] MEDS: EPOETIN ALFA 4,000 UNIT/ML VIAL IV ONE (10:12)
--- NOTE | 2025-06-26 11:07 | Dialysis Progress Note ---
Date of Service June 26, 2025 Assessment & Plan Admission and Anticipated Discharge Date Admission Date: June 24, 2025 Subjective Assessment & Plan (1) ESRD on dialysis: Has Missed Dialysis few times. Now has highish K and also higher than usual BUN and creat. no resp distress and on RA so no overt S/s of fluid overload. will still try about 2-3 kilo off and do 3 hrs dialysis on 2 K bath. hgb low will give procrit [id number] Units. (2) Acute encephalopathy: Unclear cause. Had this just previous admission also and no clear cause found. Defer to Primary team and ? neurology. very likely metabolic encephalopathy is related with Cirrhosis and ESRD ( missed dialysis) Advised patient not to miss dialysis as this makes her more likely to have Acute metabolic encephalopathy. Check ammonia level--it is high. S--seen during Dialysis. Now seems back to baseline mental status. Talking normally today ROS--12 Systems reviewed and negative Physical Exam Physical Exam: GENERAL: obese, no respiratory distress HEENT: pale NECK : Supple, no tenderness CHEST : Decreased breath sounds, no tenderness HEART : Bradycardic, no obvious murmurs ABDOMEN: Some distention, nontender EXTREMITIES : Bilateral LE venous stasis, palpable pulses, no other conspicuous deformities noted Results & Data Vital Signs (Past 12 Hours) Vital Signs Temp Pulse Pulse Pulse Resp BP BP 06/26/25 11:00 69 129/63 06/26/25 10:30 67 120/68 06/26/25 10:04 06/26/25 10:00 65 126/57 L 06/26/25 09:30 63 134/61 06/26/25 09:14 36.8 C 61 06/26/25 07:01 36.9 C 97 H 16 120/70 06/26/25 05:34 55 L 06/26/25 04:08 37.0 C 76 20 116/55 L 06/26/25 02:00 63 06/26/25 01:23 Pulse Ox O2 Del Method O2 Flow Rate 06/26/25 11:00 06/26/25 10:30 06/26/25 10:04 Nasal Cannula 3 06/26/25 10:00 06/26/25 09:30 06/26/25 09:14 06/26/25 07:01 96 Nasal Cannula 2 06/26/25 05:34 06/26/25 04:08 93 Nasal Cannula 2 06/26/25 02:00 06/26/25 01:23 Nasal Cannula 2
--- NOTE | 2025-06-26 13:40 | Hospitalist Progress Note ---
Date of Service June 26, 2025 Assessment & Plan (1) Acute encephalopathy: Plan per admitting service notes with addendum: 65 yo female with pmhx of CHF, CAD status post stent, hypertension, hypotension on midodrine, hyperlipidemia, ESRD on HD, DM2 insulin requiring, MASLD c irrhosis, GERD, history of ischemic colitis as per records, chronic pancytopenia (baseline hemoglobin of 9-11), mood disorder, past tobacco use who presented for metabolic encephalopathy of multifactorial origin. #Hepatic/Uremic Encephalopathy #MASH Cirrhosis #ESRD (MWF) -patient has missed dialysis sessions -unclear reason for missing, patient has not been feeling well, hypotensive -appears chronically colonized urinary tract, has generalized weakness -needs dialysis today Plan: -nephrology consulted, appreciate recs -start lactulose 20 tid, continue rifaxamin, start zinc and probiotics for additional assistance with hepatic encephalopathy -will need dialysis today -will need PT/OT, consideration for placement given concern for failure to thrive at home -avoid anticholinergics -check B12: normal, start folic acid/thiamine 06/26 for HD today Lactulose started, (+) multiple BMs overnight, continue for now continue usual Rifaximin #Chronic anemia -Hemoglobin stable #Hypotension -continue midodrine #DM Type 2 -SSO #GERD -Continue omeprazole when able #CAD -Continue baby aspirin, statin, and ranolazine when able. #HFpEF -Continue Entresto #RLS -Continue ropinirole when able. #History of ischemic colitis Continue mesalamine when able to take po #Depression Continue sertraline when able Admission and Anticipated Discharge Date Admission Date: June 24, 2025 Subjective seen resting in bed, on 3 L NC sitting up, having breakfast oriented x 1-2 answering most simple questions appropriately per RN, patient mostly confused this AM patient states she feels fine overall denies shortness of breath, cough, chest pain no abdominal pain, nausea no fever/chills no other symptoms Review of Systems Review of Systems: all noted and negative except for above Physical Exam Physical Exam: General- oriented x 1-2, not in distress, speaks in sentences with no effort or accessory muscle use Eyes- anicteric Neck- no JVD Lungs- clear breath sounds bilaterally, no rales/wheezes Heart- normal rate, regular rhythm; no murmurs Abdomen- normal bowel sounds, nondistended, soft, nontender Extremities- no pretibial edema, no calf tenderness Neuro- alert, oriented x 1-2; no gross focal neurologic deficits Skin- warm & dry Results & Data Results & Data Vital Signs (Past 12 Hours) Vital Signs Temp Pulse Pulse Pulse Resp BP BP 06/26/25 13:17 37.2 C 76 18 134/57 L 06/26/25 12:49 37.8 C H 72 16 138/73 06/26/25 12:00 75 126/63 06/26/25 11:30 71 112/63 06/26/25 11:00 69 129/63 06/26/25 10:30 67 120/68 06/26/25 10:04 06/26/25 10:00 65 126/57 L 06/26/25 09:30 63 134/61 06/26/25 09:14 36.8 C 61 06/26/25 07:01 36.9 C 97 H 16 120/70 06/26/25 05:34 55 L 06/26/25 04:08 37.0 C 76 20 116/55 L 06/26/25 02:00 63 Pulse Ox O2 Del Method O2 Flow Rate 06/26/25 13:17 98 Nasal Cannula 3 06/26/25 12:49 100 Nasal Cannula 3 06/26/25 12:00 06/26/25 11:30 06/26/25 11:00 06/26/25 10:30 06/26/25 10:04 Nasal Cannula 3 06/26/25 10:00 06/26/25 09:30 06/26/25 09:14 06/26/25 07:01 96 Nasal Cannula 2 06/26/25 05:34 06/26/25 04:08 93 Nasal Cannula 2 06/26/25 02:00 all noted and reviewed including below
[2025-06-26] MEDS: ONDANSETRON INJ 2 MG/ML 2 ML VIAL IV PRN (17:54)
[2025-06-27 06:42] LABS: Anion Gap 11.0 (3-11); Blood Urea Nitrogen 30.0 mg/dl (6-23); Calcium 8.4 mg/dl (8.6-10.3); Carbon Dioxide 29.0 mmol/L (21-32); Chloride 96.0 mmol/L (98-107); Creatinine Clr Calc Pharmacy 15.1 ml/min; Glucose 137.0 mg/dl (70-99(Fasting)); Magnesium 2.0 mg/dl (1.7-2.4); Potassium 3.4 mmol/L (3.5-5.1); Sodium 136.0 mmol/L (136-145)
--- NOTE | 2025-06-27 11:54 | Nephrology Progress Note ---
Date of Service June 27, 2025 Assessment & Plan (1) ESRD on dialysis: Plan: Has Missed Dialysis few times. Admitted with high K and also higher than usual BUN and creat. no resp distress and on RA so no overt S/s of fluid overload. she had dialysis yesterday. Electrolytes are stable no signs of volume overload. No indication for dialysis today. From renal standpoint patient can be discharged today to continue dialysis outpatient. If still in-house she will be dialyzed tomorrow (2) Acute encephalopathy: Plan: Unclear cause. Had this just previous admission also and no clear cause found. very likely metabolic encephalopathy is related with Cirrhosis and ESRD ( missed dialysis) Advised patient not to miss dialysis as this makes her more likely to have Acute metabolic encephalopathy. HD again tomorrow--maybe will help to some extent Admission and Anticipated Discharge Date Admission Date: June 24, 2025 Subjective seen for ESRD. She feels better today. No shortness of breath or leg swelling. She would like to be discharged. Review of Systems 2 Review of Systems: All other systems were reviewed and negative except as noted in HPI Physical Exam 2 Physical Exam: General exam: Appears comfortable, no acute distress HEENT: Pupils are equal and reactive to light Neck: No JVD, neck is supple trachea is midline Respiratory system: Clear breath sounds bilaterally. Gastrointestinal: Abdomen is soft, non distended, non tender, bowel sounds are present CVS: Regular rate and rhythm. No murmurs, rubs or gallops Musculoskeletal: No joint or muscle tenderness Extremities: Non tender, no edema, peripheral pulses are present Neuro: Oriented, no tremors, no focal neurological deficits Skin: No rashes Results & Data Vital Signs (Past 12 Hours) Vital Signs Temp Pulse Pulse Pulse Resp BP Pulse Ox 06/27/25 11:47 36.7 C 70 18 106/59 L 93 06/27/25 08:36 06/27/25 07:23 37.2 C 73 16 114/62 95 06/27/25 05:37 73 06/27/25 04:06 37.1 C 71 20 124/61 92 06/27/25 00:33 37.2 C 69 18 110/65 98 O2 Del Method O2 Flow Rate 06/27/25 11:47 Room Air 06/27/25 08:36 Nasal Cannula 2 06/27/25 07:23 Nasal Cannula 2 06/27/25 05:37 06/27/25 04:06 Room Air 06/27/25 00:33 Room Air Laboratory Results 06/27/25 05:39 06/27/25 05:39 Phosphorus 5.5 H
--- NOTE | 2025-06-27 14:01 | Hospitalist Progress Note ---
Date of Service June 27, 2025 Assessment & Plan (1) Acute encephalopathy: Plan per admitting service notes with addendum: 65 yo female with pmhx of CHF, CAD status post stent, hypertension, hypotension on midodrine, hyperlipidemia, ESRD on HD, DM2 insulin requiring, MASLD c irrhosis, GERD, history of ischemic colitis as per records, chronic pancytopenia (baseline hemoglobin of 9-11), mood disorder, past tobacco use who presented for metabolic encephalopathy of multifactorial origin. #Hepatic/Uremic Encephalopathy #MASH Cirrhosis #ESRD (MWF) -patient has missed dialysis sessions -unclear reason for missing, patient has not been feeling well, hypotensive -appears chronically colonized urinary tract, has generalized weakness -needs dialysis today Plan: -nephrology consulted, appreciate recs -start lactulose 20 tid, continue rifaxamin, start zinc and probiotics for additional assistance with hepatic encephalopathy -will need dialysis today -will need PT/OT, consideration for placement given concern for failure to thrive at home -avoid anticholinergics -check B12: normal, start folic acid/thiamine 06/26 for HD today Lactulose started, (+) multiple BMs overnight, continue for now continue usual Rifaximin 06/27 mental status better today declined Lactulose earlier today continue Rifaximin awaiting updated PT/OT eval- possible d/c later today or tomorrow #Chronic anemia -Hemoglobin stable #Hypotension -continue midodrine #DM Type 2 -SSO #GERD -Continue omeprazole when able #CAD -Continue baby aspirin, statin, and ranolazine when able. #HFpEF -Continue Entresto #RLS -Continue ropinirole when able. #History of ischemic colitis Continue mesalamine when able to take po #Depression Continue sertraline when able DVT prophylaxis SCDs Code status Full Code Disposition admitted to [facility] PT/OT eval pending usually lives at home with Admission and Anticipated Discharge Date Admission Date: June 24, 2025 Subjective seen resting in bed, comfortable states she feels fine overall oriented x 2-3, answering most questions appropriately no chest pain, dyspnea, palpitations, dizziness no dizziness, abdominal pain (+) multiple BMs no other symptoms Review of Systems Review of Systems: all noted and negative except for above Physical Exam Physical Exam: General- oriented x 2-3, not in distress, speaks in sentences with no effort or accessory muscle use Eyes- anicteric Neck- no JVD Lungs- clear breath sounds bilaterally, no rales/wheezes Heart- normal rate, regular rhythm; no murmurs Abdomen- normal bowel sounds, nondistended, soft, nontender Extremities- no pretibial edema, no calf tenderness Neuro- alert, oriented x 3; no gross focal neurologic deficits Skin- warm & dry Results & Data Results & Data Vital Signs (Past 12 Hours) Vital Signs Temp Pulse Pulse Pulse Resp BP Pulse Ox 06/27/25 11:47 36.7 C 70 18 106/59 L 93 06/27/25 08:36 06/27/25 07:23 37.2 C 73 16 114/62 95 06/27/25 05:37 73 06/27/25 04:06 37.1 C 71 20 124/61 92 O2 Del Method O2 Flow Rate 06/27/25 11:47 Room Air 06/27/25 08:36 Nasal Cannula 2 06/27/25 07:23 Nasal Cannula 2 06/27/25 05:37 06/27/25 04:06 Room Air all noted and reviewed including below
--- NOTE | 2025-06-27 19:39 | Communication Note ---
Date of Service: June 27, 2025 Overnight issues 7:35 PM Patient noted to be in A-fib. SBP 110s, heart rate 90s. Patient comfortable and more awake from admission. Past history A-fib not on blood thinners upon patient query. AP Recurrent A-fib Resume beta-jessica at lower dose (patient Toprol XL held during confinements due to hypotension) TTE, Cardiology consult re: recurrent AF 9:40 PM Patient requested for gabapentin and Requip to be restarted for RLS. Medications held on admission due to encephalopathy. Resume gabapentin at bedtime. Decrease current Requip 3 mg BID dosing to 3 mg daily (max daily dose Requip 3 mg daily for ESRD)
[2025-06-27] MEDS: METOPROLOL TARTRATE 25 MG TAB PO SCH (20:06)
[2025-06-27] MEDS: MELATONIN 3 MG TAB PO PRN (22:19)
[2025-06-27] MEDS: GABAPENTIN 300 MG CAP PO SCH (22:19)
[2025-06-28] MEDS ORDERED: SODIUM CHLORIDE 0.9% 1,000 ML IV PRN (07:00)
[2025-06-28 07:56] VITALS: RESP 18; TEMP 97.7; O2SAT 96
[2025-06-28 08:19] LABS: Anion Gap 14.0 (3-11); Blood Urea Nitrogen 53.0 mg/dl (6-23); Calcium 8.4 mg/dl (8.6-10.3); Carbon Dioxide 26.0 mmol/L (21-32); Chloride 95.0 mmol/L (98-107); Creatinine Clr Calc Pharmacy 10.8 ml/min; Glucose 177.0 mg/dl (70-99(Fasting)); Magnesium 2.2 mg/dl (1.7-2.4); Potassium 3.7 mmol/L (3.5-5.1); Sodium 135.0 mmol/L (136-145)
[2025-06-28 08:32] LABS: Partial Thromboplastin Time 28 Seconds (21-31)
--- NOTE | 2025-06-28 09:57 | Cardiology Consultation ---
Date of Consultation June 28, 2025 Assessment & Plan (1) PAF (paroxysmal atrial fibrillation): (2) ASCVD (arteriosclerotic cardiovascular disease): (3) (HFpEF) heart failure with preserved ejection fraction: (4) Right heart failure: (5) ESRD on dialysis: (6) Thrombocytopenia: Plan Paroxysmal atrial fibrillation. Recurrent. Asymptomatic. [id number] Score 8 points. - Agree with addition of low-dose beta-jessica therapy. Recommend metoprolol succinate at 12.5 mg/day. - Risks of anticoagulation appear to be greater than the benefit due to thrombocytopenia, anemia, noncompliance, patient request ASCVD. Status post remote PCI in [place]. Records not available. Records requested. Continue medical management. Recommend discontinuation of Ranolazin (Ranexa) given ESRD Congestive heart failure. Listed as heart failure with preserved ejection fraction. The only available echo is dated 2013 - revealing preserved LV systolic function, mildly dilated right ventricle with normal RV function, borderline pulmonary hypertension, mild mitral regurgitation, moderate left atrial enlargement. Refer for resting echocardiography. Dyslipidemia. Recommend changing simvastatin to atorvastatin. Tobacco abuse. Cessation advised. End-stage renal disease. On hemodialysis in [place] ([facility]), under the direction of Dr. Trent Gomes. Readmission with recurrent metabolic encephalopathy secondary to cirrhosis, missed hemodialysis, noncompliance. As per Hospitalist. Supervising Physician Co-Signing Physician Notes Attending attestation: Case reviewed with the advanced practitioner. I have personally performed a history and physical examination on the patient. I have reviewed the advanced practitioner's documentation on the date of service referenced in note, and I agree with, and take responsibility for the plan of care. Subjective: Patient seen in follow-up while on hemodialysis. No acute complaints. No subjective palpitations. Exam: Cardiovascular: Regular rhythm, 1/6 systolic ejection murmur, chronic venous stasis changes of the lower extremities Data: Summary of transthoracic echocardiogram performed 06/28/2025: There is moderate concentric left ventricular hypertrophy. No regional wall motion abnormalities noted. Left ventricular systolic function is normal. Left Ventricular Ejection Fraction = 55-60%. The right ventricle is moderately dilated. The right ventricular systolic function is moderately reduced. There is moderate diffuse right ventricular hypokinesis that spares the right ventricular apex. The pulmonary artery systolic pressure is estimated be 33 mmHg. The left atrium is moderately dilated. There is severe mitral annular calcification. There is mild mitral regurgitation. There is mild tricuspid regurgitation. Diastolic dysfunction, Grade II (pseudonormalization pattern). There are no prior studies at this institution available for direct comparison. Compared to the report of a previous study performed on 12/03/2013 at [facility] [place], mild right ventricular chamber dilatation was noted at that time Summary of EKG performed 06/27/2025 at 20: 02, atrial fibrillation at 91 bpm, incomplete left bundle branch block. EKG performed 06/24/2025 at 1856: Sinus rhythm at 67 bpm with first-degree AV block, [place] interval 258 ms, left bundle branch block, QRS duration 156 ms. Impression/ Plan: Newly recognized atrial fibrillation with spontaneous conversion to sinus rhythm -Risks of bleeding appear to outweigh the benefits of anticoagulation for stroke prophylaxis given anemia, thrombocytopenia. -I agree with low-dose metoprolol, metoprolol succinate 12.5 mg daily. Low-dose chosen due to underlying conduction system disease with first-degree AV block, left bundle branch block. -Echocardiogram findings do not appear to be acutely given her history -Follow-up with [facility] cardiology with whom she is already established. --Cardiology to sign off. Please call if future concerns develop. Sina Wilder DO History of Present Illness Reason for Consultation: Recurrent atrial fibrillation Requesting Physician: [facility] Hospitalist Service, Dr. Alcantara Attending Physician: [facility] Hospitalist Service, Dr. Nathan Kemp MD History of Present Illness Nelli Hillman is a complex 65-year-old female who returns to [facility] on June 24, 2025 via ambulance with weakness felt to be secondary to hepatic/uremic encephalopathy, underlying MASH cirrhosis and end- stage renal disease having missed hemodialysis sessions. Lactulose utilized, undergoing hemodialysis with improvement. On June 27, 2025 at 18:53 patient was noted for lapse into atrial fibrillation. She remained in atrial fibrillation until June [id number] at 02:53 in the morning at which time patient spontaneously converted back to sinus rhythm with mild conversion pause (less than 2 seconds). Patient asymptomatic with atrial fibrillation and asymptomatic with the conversion. Patient notes having a history of asymptomatic atrial fibrillation and previously being prescribed metoprolol succinate, discontinued presumably due to bradycardia or hypotension. Patient is followed by a ball warper tender employed through [facility] with evaluations completed in [place]; no prior cardiology records are available for review at this time. Patient is not the best historian however she does recall a history of atrial fibrillation. She is not prescribed anticoagulation. Patient denies palpitations, chest pain, new or worsening shortness of breath, orthopnea, PND, dizziness, or syncope Past Medical and Surgical History: ASCVD status post PCI in [place], Dr. Garner Heart failure with preserved ejection fraction Paroxysmal atrial fibrillation Recurrent hospitalizations with metabolic encephalopathy Cirrhosis Pancytopenia, thrombocytopenia Iron deficiency anemia End-stage renal disease on hemodialysis ([place], [facility]), under the direction of Dr. Trent Gomes Left upper extremity AV fistula Obstructive sleep apnea Pulmonary hypertension Chart history of peripheral vascular disease followed in [place] Type 2 diabetes mellitus with neuropathy Hypertension Dyslipidemia COPD with ongoing tobacco abuse History of Necrotizing fasciitis Anxiety and depression GERD Obesity Restless leg syndrome Recurrent UTI Plaque psoriasis, polyarticular psoriatic arthritis Ulcerative colitis Lumbar radiculopathy, lumbar degenerative disc disease Noncompliance Total abdominal hysterectomy Urinary incontinence Umbilical hernia repair Carpal tunnel Cataracts Hysterectomy Left tympanomastoidectomy Family history: Mother passed shortly after abdominal aortic aneurysm repair, age 73. Father with what sounds like an ME in his early 70s. 1 sister with? CAD. 2 brothers and 1 sister alive without known cardiac issue. Social History: Smoker, less than 1/2 pack/day. No alcohol. No illegal drug use. Lives in [place] with her . Allergies Allergy/AdvReac Type Severity Reaction Status Date / Time atorvastatin [From Lipitor] Allergy Unknown Verified 06/24/25 19:27 cephalexin [From Keflex] Allergy itchy/vomit Verified 06/24/25 19:27 ing Sulfa (Sulfonamide Allergy Unknown Verified 06/24/25 19:27 Antibiotics) Home Medications Medication Instructions Recorded Confirmed Type aspirin 81 mg tablet,delayed 81 mg PO QAM 04/24/25 06/24/25 History release cholecalciferol (vitamin D3) 25 25 mcg PO DAILY 04/24/25 06/24/25 History mcg (1,000 unit) tablet (Vitamin D3) ferric citrate 210 mg iron tablet 1 tab PO TIDM 04/24/25 06/24/25 History (Auryxia) gabapentin 300 mg capsule 300 mg PO QPM 04/24/25 06/24/25 History insulin glargine 100 unit/mL (3 10 unit subcut HS 04/24/25 06/24/25 History mL) subcutaneous pen (Lantus Solostar U-100 Insulin) lorazepam 0.5 mg tablet 0.25 mg PO BID PRN Anxiety 04/24/25 06/24/25 History mesalamine 800 mg tablet,delayed 800 mg PO TID 04/24/25 06/24/25 History release midodrine 10 mg tablet 20 mg PO UD 04/24/25 06/24/25 History omeprazole 20 mg capsule,delayed 20 mg PO QAM 04/24/25 06/24/25 History release ranolazine 500 mg tablet,extended 500 mg PO BID 04/24/25 06/24/25 History release,12 hr rifaximin 550 mg tablet (Xifaxan) 550 mg PO BID 04/24/25 06/24/25 History ropinirole 3 mg tablet 3 mg PO BID 04/24/25 06/24/25 History sacubitril 24 mg-valsartan 26 mg 1 tab PO AMHS 04/24/25 06/24/25 History tablet (Entresto) sertraline 100 mg tablet 100 mg PO HS 04/24/25 06/24/25 History simvastatin 20 mg tablet 20 mg PO HS 04/24/25 06/24/25 History vitamin B complex-vitamin C-folic 1 tab PO DAILY 04/24/25 06/24/25 History acid 0.8 mg tablet metoprolol succinate 50 mg 50 mg PO DAILY 06/24/25 06/24/25 History tablet,extended release 24 hr mometasone 0.1 % topical cream 1 applic topical DAILY PRN 06/24/25 06/24/25 History PSORIASIS ON FOREHEAD, RIGHT ELBOW, & KNEE Patient History Medical History Ischemic colitis CHF (congestive heart failure) Essential hypertension Dyslipidemia Chronic anemia Metabolic dysfunction-associated steatohepatitis (MASH) CAD (coronary artery disease) Surgical History History of tympanoplasty History of hernia repair History of hysterectomy Hx of heart artery stent Family History Other Diabetes Heart disease Social History Smoking Status: Current every day smoker Tobacco Type: Cigarettes Cigarettes Per Day: a "couple" daily; Second Hand Exposure: Yes; Do You Dip or Chew Tobacco: No; Hx Alcohol Use: No Hx Substance Use: No Preferred Language: Macedonian Communication Ability: Effective Manager Bank Required: No Beliefs That Will Affect Care: None Current Living Situation: Spouse Current Living Situation Comment: and son Other Information That Helps Us Care for You: No Feels Safe at Home: Yes Safety Concerns: Feels Safe At This Time Assistive Devices: Denture - Upper, Denture - Lower, Glasses and Walker Review of Systems Review of Systems: Complete Review of Systems is as stated above, negative, or noncontributory. Physical Exam Physical Exam: General: A&Ox3. NAD. HENT: Normocephalic. Atraumatic. Eyes: PER. Conjunctiva pink, sclera pale. Neck: JVD. Bilateral carotid bruits. Heart: RRR, 70 bpm. Systolic ejection murmur. No diastolic murmur. Lungs: Clear to auscultation. Abdomen: Obese. +BS. Soft. Nontender. No masses or organomegaly. Extremities: Left upper extremity AV fistula. Multiple excoriations in various stages of healing. Marked stasis changes. Mild edema. No focal neurological deficits Right radial pulse 2/4. Left upper extremity AV fistula. No posterior tibial pulses appreciated. Results & Data Vital Signs (Past 12 Hours) Vital Signs Temp Pulse Pulse Pulse Resp BP Pulse Ox 06/28/25 07:56 36.5 C 69 18 107/66 96 06/28/25 04:05 36.7 C 75 20 121/66 93 06/28/25 00:29 36.8 C 86 20 94/49 L 98 06/27/25 22:08 74 O2 Del Method 06/28/25 07:56 Room Air 06/28/25 04:05 Room Air 06/28/25 00:29 Room Air 06/27/25 22:08 Laboratory Results Coagulation 06/28/25 Range/Units 07:29 APTT 28 (21-31) Seconds Comprehensive Metabolic Panel 06/28/25 Range/Units 07:29 Sodium 135 L (136-145) mmol/L Potassium 3.7 (3.5-5.1) mmol/L Chloride 95 L (98-107) mmol/L Carbon Dioxide 26 (21-32) mmol/L BUN 53 H D (6-23) mg/dl Creatinine 6.42 H* D (0.6-1.2) mg/dl Glucose 177 H (70-99(Fasting)) mg/dl Calcium 8.4 L (8.6-10.3) mg/dl Intake and Output 06/27/25 06/28/25 06/28/25 22:59 06:59 14:59 Intake Total 290 / 530 240 / 530 Output Total Balance 290 / 528 239 / 528 Intake: IV 50 / 50 cefTRIAXone SODIUM 2,000 mg In 50 / 50 50 ml @ 100 mls/hr IV Q24H SWATI Rx#:[id number] Oral 240 / 480 240 / 480 Output: # Bowel Movements Other: # Unmeasured Voids 2 Weight 99.7 kg Weight Measurement Method Built in [facility] Diagnostic Findings June 24, 2025 EKG: Sinus rhythm at 67 bpm with a first-degree AV block, left axis deviation, left bundle branch block. June 27, 2025 EKG: Technically limited, uninterpretable Telemetry: Initial rhythm was sinus with a first-degree heart block, lapsing into atrial fibrillation on June 27, 2025 at 18: 53, returning to sinus rhythm on June 28, 2025 at 0 253 with mild conversion pause. Current rhythm is sinus at 70, with a first-degree AV block Coding Level of Care Code 34360 INT INP/OBS CARE 3/75MIN Diagnoses PAF (paroxysmal atrial fibrillation) I48.0 ASCVD (arteriosclerotic cardiovascular disease) I25.10 (HFpEF) heart failure with preserved ejection fraction I50.30 Right heart failure I50.810 ESRD on dialysis N18.6; Z99.2 Thrombocytopenia D69.6
--- NOTE | 2025-06-28 10:35 | Electrocardiogram Report ---
Test Reason : Blood Pressure : */* mmHG Vent. Rate : 91 BPM Atrial Rate : * BPM P-R Int : * ms QRS Dur : 140 ms QT Int : 418 ms P-R-T Axes : * -36 125 degrees QTcB Int : 514 ms Poor data quality, interpretation may be adversely affected Atrial fibrillation Left axis deviation Non-specific intra-ventricular conduction block Minimal voltage criteria for LVH, may be normal variant T wave abnormality, consider lateral ischemia Abnormal ECG When compared with ECG of 24-Jun-2025 18:56, Atrial fibrillation has replaced Sinus rhythm T wave inversion now evident in Lateral leads Confirmed by Akin Skinner ([id number]) on 06/28/2025 10:34:58 AM Referred By: REFERRED SELF Confirmed By: Akin Skinner
[2025-06-28] MEDS: HEPARIN SOD (PORCINE) 1000 UNIT/ML IV ONE (11:14)
[2025-06-28] MEDS: HEPARIN SOD (PORCINE) 1000 UNIT/ML IV SCH (11:14)
[2025-06-28] MEDS: EPOETIN ALFA 10,000 UNITS/ML VIAL IV ONE (12:14)
--- NOTE | 2025-06-28 12:49 | XCELERA ---
[id number]
[2025-06-28 14:56] VITALS: BP 154/76
--- NOTE | 2025-06-28 15:22 | Nephrology Progress Note ---
Date of Service June 28, 2025 Assessment & Plan (1) ESRD on dialysis: Plan: Has Missed Dialysis few times. Admitted with high K and also higher than usual BUN and creat. no resp distress and on RA so no overt S/s of fluid overload. Patient tolerated dialysis well today.. From renal standpoint patient can be discharged today to continue dialysis outpatient. (2) Acute encephalopathy: Plan: very likely metabolic encephalopathy is related with Cirrhosis and ESRD ( missed dialysis) Advised patient not to miss dialysis as this makes her more likely to have Acute metabolic encephalopathy. Mental status is back to baseline Admission and Anticipated Discharge Date Admission Date: June 24, 2025 Subjective seen for ESRD. No shortness of breath or leg swelling. Review of Systems 2 Review of Systems: All other systems were reviewed and negative except as noted in HPI Physical Exam 2 Physical Exam: General exam: Appears comfortable, no acute distress HEENT: Pupils are equal and reactive to light Neck: No JVD, neck is supple trachea is midline Respiratory system: Clear breath sounds bilaterally. Gastrointestinal: Abdomen is soft, non distended, non tender, bowel sounds are present CVS: Regular rate and rhythm. No murmurs, rubs or gallops Musculoskeletal: No joint or muscle tenderness Extremities: Non tender, no edema, peripheral pulses are present Neuro: Oriented, no tremors, no focal neurological deficits Skin: No rashes Results & Data Vital Signs (Past 12 Hours) Vital Signs Temp Pulse Pulse Pulse Resp BP BP 06/28/25 13:45 36.5 C 68 154/76 H 06/28/25 13:30 65 138/60 06/28/25 13:00 63 137/59 L 06/28/25 12:30 63 142/68 H 06/28/25 12:00 62 131/62 06/28/25 11:30 61 111/63 06/28/25 11:00 61 136/61 06/28/25 10:30 62 122/59 L 06/28/25 10:08 63 127/69 06/28/25 10:01 36.5 C 65 06/28/25 10:01 06/28/25 09:58 74 06/28/25 07:56 36.5 C 69 18 107/66 06/28/25 04:05 36.7 C 75 20 121/66 Pulse Ox O2 Del Method O2 Flow Rate 06/28/25 13:45 06/28/25 13:30 06/28/25 13:00 06/28/25 12:30 06/28/25 12:00 06/28/25 11:30 06/28/25 11:00 06/28/25 10:30 06/28/25 10:08 06/28/25 10:01 06/28/25 10:01 Nasal Cannula 2 06/28/25 09:58 06/28/25 07:56 96 Room Air 06/28/25 04:05 93 Room Air Laboratory Results 06/28/25 07:29 06/28/25 07:29 Phosphorus 6.6 H
--- NOTE | 2025-06-28 16:46 | Discharge Summary ---
Discharge Summary Date of Service June 28, 2025 Principal Dx & Hospital Course #1 = Principal Diagnosis (1) Acute encephalopathy: Plan per admitting service notes with addendum: 65 yo female with pmhx of CHF, CAD status post stent, hypertension, hypotension on midodrine, hyperlipidemia, ESRD on HD, DM2 insulin requiring, MASLD cirrhosis, GERD, history of ischemic colitis as per records, chronic pancytopenia (baseline hemoglobin of 9-11), mood disorder, past tobacco use who presented for metabolic encephalopathy of multifactorial origin. #Hepatic/Uremic Encephalopathy #MASH Cirrhosis #ESRD (MWF) -patient has missed dialysis sessions -unclear reason for missing, patient has not been feeling well, hypotensive -appears chronically colonized urinary tract, has generalized weakness -needs dialysis today Plan: -nephrology consulted, appreciate recs -start lactulose 20 tid, continue rifaxamin, start zinc and probiotics for additional assistance with hepatic encephalopathy -will need dialysis today -will need PT/OT, consideration for placement given concern for failure to thrive at home -avoid anticholinergics -check B12: normal, start folic acid/thiamine 06/26 for HD today Lactulose started, (+) multiple BMs overnight, continue for now continue usual Rifaximin 06/28 mental status back to baseline continue Lactulose, Rifaximin advised not to miss hemodialysis session, patient verbalized understanding and agreement #New Onset A fib Episode Evaluated by Cardiology service, Dr Wilder recommendations: Summary of transthoracic echocardiogram performed 06/28/2025: There is moderate concentric left ventricular hypertrophy. No regional wall motion abnormalities noted. Left ventricular systolic function is normal. Left Ventricular Ejection Fraction = 55-60%. The right ventricle is moderately dilated. The right ventricular systolic function is moderately reduced. There is moderate diffuse right ventricular hypokinesis that spares the right ventricular apex. The pulmonary artery systolic pressure is estimated be 33 mmHg. The left atrium is moderately dilated. There is severe mitral annular calcification. There is mild mitral regurgitation. There is mild tricuspid regurgitation. Diastolic dysfunction, Grade II (pseudonormalization pattern). There are no prior studies at this institution available for direct comparison. Compared to the report of a previous [facility] on 12/03/2013 [facility], mild right ventricular chamber dilatation was noted at that time Summary of EKG performed 06/27/2025 at 20: 02, atrial fibrillation at 91 bpm, incomplete left bundle branch block. EKG performed 06/24/2025 at 1856: Sinus rhythm at 67 bpm with first-degree AV block, GA interval 258 ms, left bundle branch block, QRS duration 156 ms. Impression/ Plan: Newly recognized atrial fibrillation with spontaneous conversion to sinus rhythm -Risks of bleeding appear to outweigh the benefits of anticoagulation for stroke prophylaxis given anemia, thrombocytopenia. -I agree with low-dose metoprolol, metoprolol succinate 12.5 mg daily. Low-dose chosen due to underlying conduction system disease with first-degree AV block, left bundle branch block. -Echocardiogram findings do not appear to be acutely given her history -Follow-up with [facility] cardiology with whom she is already established. --Cardiology to sign off. Please call if future concerns develop. #Chronic anemia -Hemoglobin stable #Hypotension -continue midodrine #DM Type 2 -SSO #GERD -Continue omeprazole when able #CAD -Continue baby aspirin, statin, and ranolazine when able. #HFpEF -Continue Entresto #RLS -Continue ropinirole when able. #History of ischemic colitis Continue mesalamine when able to take po #Depression Continue sertraline when able DVT prophylaxis SCDs Code status Full Code Disposition d/c home ff up with PCP in 1 week Notes For Next Care Provider Medication Changes From Visit Reduce Metoprolol Succinate to 12.5mg daily. Take Ropinirole only at bedtime, instead of twice a day. Stop Sacubitril-Valsartan (Entresto).--> to avoid hypotension Admission HPI Per Admitting Provider History obtained from patient and records. Patient is a fair historian. Medical history significant for CHF, CAD status post stent, hypertension, hypotension on midodrine, hyperlipidemia, ESRD on HD, DM2 insulin requiring, MASLD cirrhosis, GERD, history of ischemic colitis as per records, chronic pancytopenia (baseline hemoglobin of 9-11), mood disorder, past tobacco use. Monthly [facility] admissions since April,. Recent confinement last week for multifactorial encephalopathy. Patient not feeling well today. Could not go for dialysis due to generalized weakness. Denies headache, chest pain, cough or unusual SOB. Denies abdominal pain or bleeding symptoms. Dysuria symptoms. Urine noted to be foul-smelling at home. Usual bilateral leg pain complaints. Lowest SBP of 90s documented at the ER. 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 Discharge Exam General- oriented x 3, not in distress, speaks in sentences with no effort or accessory muscle use Eyes- anicteric Neck- no JVD Lungs- clear breath sounds bilaterally, no rales/wheezes Heart- normal rate, regular rhythm; no murmurs Abdomen- normal bowel sounds, nondistended, soft, nontender Extremities- no pretibial edema, no calf tenderness Neuro- alert, oriented x 3; no gross focal neurologic deficits Skin- warm & dry Updated Medication List Medication Instructions Recorded Confirmed Type aspirin 81 mg tablet,delayed 81 mg PO QAM 04/24/25 06/24/25 History release cholecalciferol (vitamin D3) 25 25 mcg PO DAILY 04/24/25 06/24/25 History mcg (1,000 unit) tablet (Vitamin D3) ferric citrate 210 mg iron tablet 1 tab PO TIDM 04/24/25 06/24/25 History (Auryxia) gabapentin 300 mg capsule 300 mg PO QPM 04/24/25 06/24/25 History insulin glargine 100 unit/mL (3 10 unit subcut HS 04/24/25 06/24/25 History mL) subcutaneous pen (Lantus Solostar U-100 Insulin) lorazepam 0.5 mg tablet 0.25 mg PO BID PRN Anxiety 04/24/25 06/24/25 History mesalamine 800 mg tablet,delayed 800 mg PO TID 04/24/25 06/24/25 History release midodrine 10 mg tablet 20 mg PO UD 04/24/25 06/24/25 History omeprazole 20 mg capsule,delayed 20 mg PO QAM 04/24/25 06/24/25 History release ranolazine 500 mg tablet,extended 500 mg PO BID 04/24/25 06/24/25 History release,12 hr rifaximin 550 mg tablet (Xifaxan) 550 mg PO BID 04/24/25 06/24/25 History sertraline 100 mg tablet 100 mg PO HS 04/24/25 06/24/25 History simvastatin 20 mg tablet 20 mg PO HS 04/24/25 06/24/25 History vitamin B complex-vitamin C-folic 1 tab PO DAILY 04/24/25 06/24/25 History acid 0.8 mg tablet mometasone 0.1 % topical cream 1 applic topical DAILY PRN 06/24/25 06/24/25 History PSORIASIS ON FOREHEAD, RIGHT ELBOW, & KNEE metoprolol succinate 25 mg 12.5 mg (1/2 x 25 mg) PO QAM #30 06/28/25 Rx tablet,extended release 24 hr tabs ropinirole 3 mg tablet 3 mg PO HS #0 tabs 06/28/25 06/24/25 Rx Hospital Stay Data Consultations 06/24/25 20:31 ED Decision to Admit Stat 06/24/25 20:59 Consult Nephrology Routine 06/27/25 20:44 Consult Cardiology Routine Diagnostic Imagining Performed Laboratory Results WBC 4.12 K/ul (4.8-10.8) L 06/26/25 06:52 RBC 2.77 M/uL (4.20-5.40) L 06/26/25 06:52 Hgb 9.0 g/dL (12.0-16.0) L 06/26/25 06:52 POC Hgb 9.9 g/dl (12.0-16.0) L 06/24/25 19:17 Hct 27.1 % (37.0-47.0) L 06/26/25 06:52 POC Hct 29 % (37-47) L 06/24/25 19:17 MCV 97.8 fL (80.0-100.0) 06/26/25 06:52 MCH 32.5 pg (25.0-34.0) 06/26/25 06:52 MCHC 33.2 g/dL (32.0-36.0) 06/26/25 06:52 RDW Std Deviation 60.5 fL (36.4-46.3) H 06/26/25 06:52 RDW Coeff of Danette 16.7 % (11.5-14.5) H 06/26/25 06:52 Plt Count 73 K/uL (130-400) L 06/26/25 06:52 MPV 12.2 fL (9.4-12.4) 06/26/25 06:52 Immature Gran % (Auto) 0.6 % 06/25/25 03:40 Neut % (Auto) 80.6 % 06/25/25 03:40 Lymph % (Auto) 12.3 % 06/25/25 03:40 [place] % (Auto) 5.2 % 06/25/25 03:40 Eos % (Auto) 1.0 % 06/25/25 03:40 Baso % (Auto) 0.3 % 06/25/25 03:40 Neut # (Auto) 2.50 K/uL (1.40-6.50) 06/25/25 03:40 Lymph # (Auto) 0.38 K/uL (1.20-3.40) L 06/25/25 03:40 [place] # (Auto) 0.16 K/uL (0.11-0.59) 06/25/25 03:40 Eos # (Auto) 0.03 K/uL (0.00-0.50) 06/25/25 03:40 Baso # (Auto) 0.01 K/uL (0.00-0.20) 06/25/25 03:40 Immature Gran # (Auto) 0.02 K/uL (0.01-0.20) 06/25/25 03:40 Platelet Estimate Decreased (Normal) L 06/25/25 03:40 Polychromasia 1+ 06/25/25 03:40 APTT 28 Seconds (21-31) 06/28/25 07:29 PTT Ratio 1.0 06/28/25 07:29 VBG pH 7.54 (7.36-7.41) H 06/25/25 23:11 VBG pCO2 34 mmHg (38-50) L 06/25/25 23:11 VBG pO2 65 mmHg 06/25/25 23:11 VBG HCO3 29 mmol/L 06/25/25 23:11 VBG O2 Saturation 93.7 % 06/25/25 23:11 VBG Base Excess 6.6 mEq/L 06/25/25 23:11 POC Sodium 135 mmol/L (135-144) 06/24/25 19:17 Sodium 135 mmol/L (136-145) L 06/28/25 07:29 POC Potassium 5.6 mmol/L (3.3-5.0) H 06/24/25 19:17 Potassium 3.7 mmol/L (3.5-5.1) 06/28/25 07:29 POC Chloride 102 mmol/L (101-112) 06/24/25 19:17 Chloride 95 mmol/L (98-107) L 06/28/25 07:29 Carbon Dioxide 26 mmol/L (21-32) 06/28/25 07:29 POC Total CO2 19 mmol/L (24-31) L 06/24/25 19:17 Anion Gap 14 (3-11) H 06/28/25 07:29 POC Anion Gap 21.0 mmol/L (16-25) 06/24/25 19:17 POC BUN 85 mg/dl (7-18) H 06/24/25 19:17 BUN 53 mg/dl (6-23) H D 06/28/25 07:29 Creatinine 6.42 mg/dl (0.6-1.2) H* D 06/28/25 07:29 POC Creatinine 8.9 mg/dl (0.6-1.3) H* 06/24/25 19:17 Est Cr Clr Drug Dosing 10.8 ml/min 06/28/25 07:29 eGFR 6.71 06/28/25 07:29 BUN/Creatinine Ratio 8.3 (10-20) L 06/28/25 07:29 Glucose 177 mg/dl (70-99(Fasting)) H 06/28/25 07:29 POC Glucose 201 mg/dl (70-99) H 06/28/25 17:13 POC Glucose (other) 215 mg/dl (70-99) H 06/24/25 19:17 Lactate 1.8 mmol/L (0.4-2.0) 06/25/25 03:40 Calcium 8.4 mg/dl (8.6-10.3) L 06/28/25 07:29 POC Ioniz Calcium Norberto 0.98 mmol/l (1.12-1.32) L 06/24/25 19:17 Phosphorus 6.6 mg/dl (2.5-4.9) H 06/28/25 07:29 Magnesium 2.2 mg/dl (1.7-2.4) 06/28/25 07:29 Total Bilirubin 1.0 mg/dl (0.2-1.0) 06/24/25 18:56 AST 26 U/L (13-39) 06/24/25 18:56 ALT 12 U/L (7-52) 06/24/25 18:56 Alkaline Phosphatase 152 U/L (34-104) H 06/24/25 18:56 Ammonia 151.0 umol/L (18-72) H 06/25/25 03:40 Total Protein 7.2 gm/dl (6.0-8.3) 06/24/25 18:56 Albumin 3.0 gm/dl (3.4-5.0) L 06/24/25 18:56 Globulin 4.2 gm/dl (2.5-4.0) H 06/24/25 18:56 Albumin/Globulin Ratio 0.7 (0.9-2) L 06/24/25 18:56 Vitamin B12 434 pg/ml (180-914) 06/25/25 14:06 TSH 1.334 uIu/ml (0.300-4.500) 06/24/25 18:56 Urine Color Dark Yellow 06/25/25 01:08 Urine Appearance Clear (Clear) 06/25/25 01:08 Urine pH 5.5 (4.5-7.5) 06/25/25 01:08 Ur Specific [place] 1.020 (1.000-1.030) 06/25/25 01:08 Urine Protein 3+ (Negative) H 06/25/25 01:08 Urine Glucose (UA) Negative (Negative) 06/25/25 01:08 Urine Ketones Trace (Negative) H 06/25/25 01:08 Urine Blood 3+ (Negative) H 06/25/25 01:08 Urine Nitrite Negative (Negative) 06/25/25 01:08 Urine Bilirubin 1+ (Negative) H 06/25/25 01:08 Urine Urobilinogen Negative (Negative) 06/25/25 01:08 Ur Leukocyte Esterase 2+ (Negative) H 06/25/25 01:08 Urine WBC (Auto) >50 /hpf (0-5) H 06/25/25 01:08 Urine RBC (Auto) >20 /hpf (0-2) H 06/25/25 01:08 U Hyaline Cast (Auto) 0-2 /lpf (0-2) 06/25/25 01:08 U Epithel Cells (Auto) 6-10 /hpf (0-2) H 06/25/25 01:08 Urine Bacteria (Auto) 4+ (None Seen) H 06/25/25 01:08 Urine Comment 06/25/25 01:08 Nasal Screen MRSA (PCR) Negative (Negative) 06/24/25 22:03 SARS-CoV-2 (PCR) NEGATIVE (Negative) 06/24/25 21:34 Influenza Type A (PCR) Negative (Neg) 06/24/25 21:34 Influenza Type B (PCR) Negative (Neg) 06/24/25 21:34 RSV (RT-PCR) Negative (Neg) 06/24/25 21:34 Impressions Chest X-Ray 06/25/25 23:13 Exam(s): XR CXR 1 VIEW EXAM: XR Chest, 1 View CLINICAL HISTORY: Low o2. TECHNIQUE: Frontal view of the chest. COMPARISON: Chest radiograph 06/24/2025 FINDINGS: Lungs: Bilateral airspace opacities are present. Pleural space: Unremarkable. No pneumothorax. Heart: Cardiomegaly. Mediastinum: Unremarkable. Normal mediastinal contour. Bones/joints: There are degenerative changes of the spine. No acute fracture. IMPRESSION: 1. Bilateral airspace opacities may represent pulmonary edema and/or atypical infection. 2. Cardiomegaly. Electronically signed by: Izabela Crockett MD 06/26/25 05:25 AM Pending Results Patient Have Any Pending Studies at Discharge: No Discharge Instructions Given to Patient (Per Discharging Provider) PLEASE REFER TO YOUR NEW MEDICATION LIST AND FOLLOW INSTRUCTIONS CAREFULLY. YOUR NEW MEDICATIONS INCLUDE: Reduce Metoprolol Succinate to 12.5mg daily. Take Ropinirole only at bedtime, instead of twice a day. Stop Sacubitril-Valsartan (Entresto). PLEASE CALL YOUR PRIMARY CARE PHYSICIAN OR RETURN TO THE ER IF WITH WORSENING OF SYMPTOMS, INCLUDING confusion, drowsiness, shortness of breath, weakness, chest pain, palpitations, dizziness, etc FOLLOW UP WITH PRIMARY CARE PHYSICIAN OUTLINED ABOVE. Total Time Total Time Spent Total Time Spent (In Minutes): 40 minutes
[2025-06-28 17:00] VITALS: PULSE 79
[2025-06-28] MEDS ORDERED: SERTRALINE HCL 100 MG TABLET PO SCH (21:00)
[2025-06-28] MEDS ORDERED: GABAPENTIN 300 MG CAP PO SCH (21:00)
[2025-06-29] MEDS ORDERED: METOPROLOL SUCC 25MG EXT REL TAB PO SCH (09:00)
== END 2025-06-28 19:30 | disposition home or self-care (01) | DRG 441 ==
LOC: ED 18:47 → 2N 20:42 → SUATTDRO 20:42 → 2N 21:34